=== PATIENT | male | born 1940 | race Caucasian/White ===

== ENCOUNTER 2018-02-24 15:15 | Inpatient (IN) | payer OTHER ==
[2018-02-24 15:51] LABS: PLATELET COUNT 230 10^3/uL (150-400)
--- NOTE | 2018-02-24 16:02 | CPEKG ---
Test Reason : OPEN Blood Pressure : / mmHG Vent. Rate : 144 BPM Atrial Rate : 131 BPM P-R Int : 126 ms QRS Dur : 129 ms QT Int : 343 ms P-R-T Axes : 055 -53 124 degrees QTc Int : 531 ms Wide-QRS tachycardia Confirmed by Tremaine Harry ([id number]) on 02/24/2018 4:02:23 PM Referred By: Confirmed By:Tremaine Harry
[2018-02-24] MEDS ORDERED: DILTIAZEM 25 MG/5 ML VIAL IVP ONE (16:10)
[2018-02-24] MEDS ORDERED: ASPIRIN 81 MG CHEWABLE TAB PO ONE (16:10)
--- NOTE | 2018-02-24 16:11 | EDPHY ---
H & P Stated Complaint: max says pt became diaphoretic, c/o feeling not right, then unresponsive Time Seen by Provider: 02/24/18 16:01 HPI/ROS: CHIEF COMPLAINT: Syncope, atrial fibrillation HISTORY OF PRESENT ILLNESS: The patient is a 77-year-old man who denies any type of cardiac history who comes to the emergency department via EMS after new onset atrial fibrillation and a syncopal event. He states that he walked up the stairs and felt short of breath and had to sit down which is unusual for him. He got a drink of water and walked back down the stairs. When he got down the stairs he had to sit down and felt short of breath. His friends noticed that he looked pale and was staring off into space. No convulsions. He did not bite his tongue. He was slightly incontinent of urine. His friends feel like this lasted for 10 min but think that they may be over estimating because they were scared. They called 911. His symptoms resolved spontaneously. He states that he might have had a slight twinge of pain and palpitations initially but does not remember for sure. He now is a heart rate of 140 and is in atrial fibrillation which he states is new. He is not anticoagulated. No headache. No recent fevers or infections. He has a history of left-sided carotid endarterectomy. Negative stress test 7 years ago. Severity: Moderate Modifying factors: Resolved REVIEW OF SYSTEMS: Constitutional: denies: chills, fever, recent illness, recent injury EENTM: denies: blurred vision, double vision, nose congestion Respiratory: denies: cough, shortness of breath Cardiac: See HPI Gastrointestinal/Abdominal: denies: abdominal pain, diarrhea, nausea, vomiting, blood streaked stools Genitourinary: denies: dysuria, frequency, hematuria, pain Musculoskeletal: denies: joint pain, muscle pain Skin: denies: lesions, rash, jaundice, bruising Neurological: denies: headache, numbness, paresthesia, tingling, dizziness, weakness Hematologic/Lymphatic: denies: blood clots, easy bleeding, easy bruising Immunologic/allergic: denies: HIV/AIDS, transplant 10 systems reviewed and negative except as noted EXAM: GENERAL: Well-appearing, well-nourished and in no acute distress. HEAD: Atraumatic, normocephalic. EYES: Pupils equal round and reactive to light, extraocular movements intact, sclera anicteric, conjunctiva are normal. ENT: TMs normal, nares patent, oropharynx clear without exudates. Moist mucous membranes. NECK: Normal range of motion, supple without lymphadenopathy or JVD. LUNGS: Breath sounds clear to auscultation bilaterally and equal. No wheezes rales or rhonchi. HEART: Tachycardic and irregular, no rubs ABDOMEN: Soft, nontender, normoactive bowel sounds. No guarding, no rebound. No masses appreciated. BACK: No CVA tenderness, no spinal tenderness, step-offs or deformities EXTREMITIES: Normal range of motion, no pitting or edema. No clubbing or cyanosis. NEUROLOGICAL: Cranial nerves II through XII grossly intact. Normal speech, normal gait. 5/5 strength, normal movement in all extremities, normal sensation , normal reflexes PSYCH: Normal mood, normal affect. SKIN: Warm, dry, normal turgor, no visible rashes or lesions. Source: Patient Exam Limitations: No limitations - Medical/Surgical History Hx Asthma: No Hx Chronic Respiratory Disease: No Hx Diabetes: No Hx Cardiac Disease: Yes Hx Renal Disease: No Hx Cirrhosis: No Hx Alcoholism: No Hx HIV/AIDS: No Hx Splenectomy or Spleen Trauma: No Other PMH: hyperlipidemia, hypertension, bph, bilat knee replace, tonsillectomy , bilat cataract surg - Family History Significant Family History: No pertinent family hx - Social History Smoking Status: Former smoker Alcohol Use: Sober Drug Use: None Constitutional: Initial Vital Signs Temperature (C) 36.7 C 02/24/18 15:23 Heart Rate 128 H 02/24/18 15:23 Respiratory Rate 28 H 02/24/18 15:23 Blood Pressure 130/83 H 02/24/18 15:23 O2 Sat (%) 96 02/24/18 15:23 O2 Delivery Mode Room Air Allergies/Adverse Reactions: Penicillins Allergy (Verified 02/24/18 17:44) itching and hand swelling Home Medications: Medication Instructions Recorded Aspirin [Aspirin 325 mg (*)] 325 mg PO HS 02/24/18 Cholecalciferol Vit D3 [Vitamin D3 1,000 units PO DAILY 02/24/18 (*)] Cyanocobalamin [Vitamin B12 (*)] 100 mcg PO DAILY@12 02/24/18 Isosorbide Mononitrate [Imdur 30 30 mg PO DAILY 02/24/18 mg (*)] Metoprolol Tartrate [Lopressor 25 25 mg PO BID 02/24/18 mg (*)] Simvastatin [Zocor] 40 mg PO HS 02/24/18 Tamsulosin HCl [Flomax 0.4 MG (*)] 0.4 mg PO HS 02/24/18 Telmisartan/Hydrochlorothiazid 1 each PO DAILY 02/24/18 [Micardis Hct 40-12.5 mg Tablet] Medical Decision Making - Diagnostics EKG Interpretation: An EKG obtained and was read and documented in trace view. Please see trace view for full reading and report. Atrial fibrillation, no acute ischemic changes Imaging Results: Imaging Impressions Head CT 02/24/18 16:02 Impression: Nothing acute identified. Results called to Dr. Tremaine Harry at 4:51 PM General information for patients regarding this examination can be found at [email or web address]. If you have questions or comments about this report, please contact me at (hospital) or [phone] (cell). Imaging: Discussed imaging studies w/ inbound call center representative Radiologist ED Course/Re-evaluation: 5:00 p.m. there has been delay and administering diltiazem. He is receiving now. He is able to ambulate. I discussed the case with Dr. Pulliam who will admit. Differential Diagnosis: Partial list of the Differential diagnosis considered include but were not limited to; syncope, seizure, new onset atrial fibrillation and although unlikely based on the history and physical exam, I also considered acute coronary disease, dissection, aneurysm, hemorrhage. - Data Points Laboratory Results: Laboratory Results 02/24/18 15:30 02/24/18 15:30 02/24/18 02/24/18 02/24/18 15:40 15:30 15:30 WBC RBC Hgb Hct MCV MCH MCHC RDW Plt Count MPV Neut % (Auto) Lymph % (Auto) [place] % (Auto) Eos % (Auto) Baso % (Auto) Nucleat RBC Rel Count Absolute Neuts (auto) Absolute Lymphs (auto) Absolute Monos (auto) Absolute Eos (auto) Absolute Basos (auto) Absolute Nucleated RBC Immature Gran % Immature Gran # PT 14.2 SEC SEC (12.0-15.0) INR 1.08 (0.83-1.16) APTT 29.7 SEC SEC (23.0-38.0) Sodium 133 mEq/L L mEq/L (135-145) Potassium 4.1 mEq/L mEq/L (3.3-5.0) Chloride 98 mEq/L mEq/L (97-110) Carbon Dioxide 24 mEq/l mEq/l (22-31) Anion Gap 11 mEq/L mEq/L (6-14) BUN 26 mg/dL H mg/dL (7-23) Creatinine 1.2 mg/dL mg/dL (0.7-1.3) Estimated GFR 58 Glucose 104 mg/dL H mg/dL (70-100) Calcium 9.4 mg/dL mg/dL (8.5-10.4) POC Troponin I 0.13 ng/mL H ng/mL (0.00-0.08) 02/24/18 15:30 WBC 5.70 10^3/uL 10^3/uL (3.80-9.50) RBC 4.22 10^6/uL L 10^6/uL (4.40-6.38) Hgb 12.6 g/dL L g/dL (13.7-17.5) Hct 37.1 % L % (40.0-51.0) MCV 87.9 fL fL (81.5-99.8) MCH 29.9 pg pg (27.9-34.1) MCHC 34.0 g/dL g/dL (32.4-36.7) RDW 13.3 % % (11.5-15.2) Plt Count 230 10^3/uL 10^3/uL (150-400) MPV 10.4 fL fL (8.7-11.7) Neut % (Auto) 77.9 % H % (39.3-74.2) Lymph % (Auto) 11.8 % L % (15.0-45.0) [facility] % (Auto) 9.5 % % (4.5-13.0) Eos % (Auto) 0.4 % L % (0.6-7.6) Baso % (Auto) 0.2 % L % (0.3-1.7) Nucleat RBC Rel Count 0.0 % % (0.0-0.2) Absolute Neuts (auto) 4.45 10^3/uL 10^3/uL (1.70-6.50) Absolute Lymphs (auto) 0.67 10^3/uL L 10^3/uL (1.00-3.00) Absolute Monos (auto) 0.54 10^3/uL 10^3/uL (0.30-0.80) Absolute Eos (auto) 0.02 10^3/uL L 10^3/uL (0.03-0.40) Absolute Basos (auto) 0.01 10^3/uL L 10^3/uL (0.02-0.10) Absolute Nucleated RBC 0.00 10^3/uL 10^3/uL (0-0.01) Immature Gran % 0.2 % % (0.0-1.1) Immature Gran # 0.01 10^3/uL 10^3/uL (0.00-0.10) PT INR APTT Sodium Potassium Chloride Carbon Dioxide Anion Gap BUN Creatinine Estimated GFR Glucose Calcium POC Troponin I Medications Given: Discontinued Medications Aspirin (Aspirin) 324 mg PO EDNOW ONE Stop: 02/24/18 16:11 Last Admin: 02/24/18 17:00 Dose: 324 mg Diltiazem HCl (Cardizem 25 Mg/5 Ml Vial) 10 mg IVP EDNOW ONE Stop: 02/24/18 16:11 Last Admin: 02/24/18 17:00 Dose: 10 mg Metoprolol Tartrate (Lopressor) 25 mg PO ONCE ONE Stop: 02/24/18 18:31 Last Admin: 02/24/18 19:18 Dose: 25 mg Point of Care Test Results: Chemistry 02/24/18 15:40 POC Troponin I 0.13 ng/mL H ng/mL (0.00-0.08) Departure - Departure Disposition: [facility] Inpatient Acute Clinical Impression: New onset atrial fibrillation Syncope Qualifiers: Syncope type: unspecified Qualified Code(s): R55 - Syncope and collapse Condition: Fair
[2018-02-24 16:23] LABS: INR 1.08 (0.83-1.16); PROTIME(PATIENT) 14.2 SEC (12.0-15.0)
[2018-02-24] MEDS ORDERED: ACETAMINOPHEN 325 MG TAB PO PRN (18:27)
[2018-02-24] MEDS ORDERED: NS 1,000 ML IV SCH (18:30)
[2018-02-24] MEDS ORDERED: METOPROLOL TARTRATE 25 MG TAB PO ONE (18:30)
--- NOTE | 2018-02-24 20:12 | PDGENHP ---
History and Physical - Chief Complaint Acute syncope - History of Present Illness Primary care provider: Dr. Matt Hines HPI: 77-year-old male presents with acute syncope characterized as complete unresponsiveness with associated urinary incontinence but no overt trauma or fall, experienced after he was visibly diaphoretic, experiencing shortness of breath with ambulation, and expressing some mild left-sided chest pain. The symptoms occurred in the context of the patient playing pool with friends at 1: 30 p.m.. He ambulated up stairs and then down stairs, then experiencing the aforementioned symptoms. The duration of his unresponsiveness was approximately 10 min, and it was witnessed by his friends and family. He did not require any CPR and his symptoms abated. His chest pain was very brief and he is not entirely sure whether he would described as pain or palpitations. In the emergency department he was notably in rapid AFib and was given 1 dose of IV diltiazem. Over the past several weeks, the patient has been experiencing a cough as well as exertional shortness of breath, which is alleviated with rest. His family has witnessed this and describes shortness of breath has significantly different than his baseline exertion. They have also witnessed the patient experience some dizziness with ambulation. The patient seems to minimize the symptoms. He reports he has otherwise been taking all of his home medications. History Information - Allergies/Home Medication List Allergies/Adverse Reactions: Penicillins Allergy (Verified 02/24/18 17:44) itching and hand swelling Home Medications: Aspirin [Aspirin 325 mg (*)] 325 mg PO HS 02/24/18 [Last Taken 02/23/18] Cholecalciferol Vit D3 [Vitamin D3 (*)] 1,000 units PO DAILY 02/24/18 [Last Taken Unknown] Cyanocobalamin [Vitamin B12 (*)] 100 mcg PO DAILY@12 02/24/18 [Last Taken ] Isosorbide Mononitrate [Imdur 30 mg (*)] 30 mg PO DAILY 02/24/18 [Last Taken ] Metoprolol Tartrate [Lopressor 25 mg (*)] 25 mg PO BID 02/24/18 [Last Taken 09:00] Simvastatin [Zocor] 40 mg PO HS 02/24/18 [Last Taken 02/23/18] Tamsulosin HCl [Flomax 0.4 MG (*)] 0.4 mg PO HS 02/24/18 [Last Taken 02/23/18] Telmisartan/Hydrochlorothiazid [Micardis Hct 40-12.5 mg Tablet] 1 each PO DAILY 02/24/18 [Last Taken 02/24/18] I have personally reviewed and updated: family history, medical history, social history, surgical history - Past Medical History Additional medical history: Chronic lower extremity edema. Known heart murmur. Peripheral neuropathy. Osteoarthritis with impaired balance at baseline. Carotid stenosis. Last cardiac stress test 7 years ago, last cardiac catheterization 12 years ago - Surgical History Additional surgical history: Left-sided CEA. Bilateral knee surgery - Family History Additional family history: Father with myocardial infarction at age 55 - Social History Smoking Status: Former smoker Alcohol Use: Sober (History of heavy drinking) Drug Use: None Additional social history: Patient is independent in his ADLs comma he currently resides with his daughter and her Review of Systems Review of Systems: ROS: 10pt was reviewed & negative except for what was stated in HPI & below Cardiac: Reports: chest pain, palpitations Respiratory: Reports: cough, shortness of breath Neurological: Reports: other (Syncope, dizziness) Physical Exam Physical Exam: Temp Pulse Resp BP Pulse Ox 36.3 C 146 H 16 121/94 H 96 02/24/18 18:26 02/24/18 19:18 02/24/18 18:26 02/24/18 18:26 02/24/18 18:26 Constitutional: no apparent distress, appears nourished, not in pain, No uncomfortable Eyes: PERRL, anicteric sclera, EOMI Ears, Nose, Mouth, Throat: moist mucous membranes, ears appear normal, no oral mucosal ulcers, hard of hearing Cardiovascular: irregularly irregular, JVD, tachycardia, edema (1+ bilateral lower extremities), No carotid bruit Respiratory: inspiratory crackles, No reduced air movement, No expiratory wheeze , No bronchial breath sounds, No respiratory distress Gastrointestinal: normoactive bowel sounds, soft, non-tender abdomen, other ( Mid abdominal hernia, nontender), No guarding, No distension Skin: warm, No rash Neurologic: AAOx3, sensation intact bilaterally, No weakness (Motor strength 5/ 5 bilateral lower extremities) Psychiatric: interacting appropriately, not anxious, poor memory, other (Mild delay and thought processing), No agitated Lab Data & Imaging Review 02/24/18 15:30 02/24/18 15:30 WBC 5.70 10^3/uL (3.80-9.50) 02/24/18 15:30 RBC 4.22 10^6/uL (4.40-6.38) L 02/24/18 15:30 Hgb 12.6 g/dL (13.7-17.5) L 02/24/18 15:30 Hct 37.1 % (40.0-51.0) L 02/24/18 15:30 MCV 87.9 fL (81.5-99.8) 02/24/18 15:30 MCH 29.9 pg (27.9-34.1) 02/24/18 15:30 MCHC 34.0 g/dL (32.4-36.7) 02/24/18 15:30 RDW 13.3 % (11.5-15.2) 02/24/18 15:30 Plt Count 230 10^3/uL (150-400) 02/24/18 15:30 MPV 10.4 fL (8.7-11.7) 02/24/18 15:30 Neut % (Auto) 77.9 % (39.3-74.2) H 02/24/18 15:30 Lymph % (Auto) 11.8 % (15.0-45.0) L 02/24/18 15:30 Burt % (Auto) 9.5 % (4.5-13.0) 02/24/18 15:30 Eos % (Auto) 0.4 % (0.6-7.6) L 02/24/18 15:30 Baso % (Auto) 0.2 % (0.3-1.7) L 02/24/18 15:30 Nucleat RBC Rel Count 0.0 % (0.0-0.2) 02/24/18 15:30 Absolute Neuts (auto) 4.45 10^3/uL (1.70-6.50) 02/24/18 15:30 Absolute Lymphs (auto) 0.67 10^3/uL (1.00-3.00) L 02/24/18 15:30 Absolute Monos (auto) 0.54 10^3/uL (0.30-0.80) 02/24/18 15:30 Absolute Eos (auto) 0.02 10^3/uL (0.03-0.40) L 02/24/18 15:30 Absolute Basos (auto) 0.01 10^3/uL (0.02-0.10) L 02/24/18 15:30 Absolute Nucleated RBC 0.00 10^3/uL (0-0.01) 02/24/18 15:30 Immature Gran % 0.2 % (0.0-1.1) 02/24/18 15:30 Immature Gran # 0.01 10^3/uL (0.00-0.10) 02/24/18 15:30 PT 14.2 SEC (12.0-15.0) 02/24/18 15:30 INR 1.08 (0.83-1.16) 02/24/18 15:30 APTT 29.7 SEC (23.0-38.0) 02/24/18 15:30 Sodium 133 mEq/L (135-145) L 02/24/18 15:30 Potassium 4.1 mEq/L (3.3-5.0) 02/24/18 15:30 Chloride 98 mEq/L (97-110) 02/24/18 15:30 Carbon Dioxide 24 mEq/l (22-31) 02/24/18 15:30 Anion Gap 11 mEq/L (6-14) 02/24/18 15:30 BUN 26 mg/dL (7-23) H 02/24/18 15:30 Creatinine 1.2 mg/dL (0.7-1.3) 02/24/18 15:30 Estimated GFR 58 02/24/18 15:30 Glucose 104 mg/dL (70-100) H 02/24/18 15:30 Calcium 9.4 mg/dL (8.5-10.4) 02/24/18 15:30 POC Troponin I 0.13 ng/mL (0.00-0.08) H 02/24/18 15:40 Visualized and Interpreted Chest x-ray results: Yes Chest X-Ray results: other (Bilateral interstitial infiltrates) Visualized and Interpreted EKG results: Yes EKG Interpretation: Positive for: other (Atrial fibrillation with ST depression in lateral leads) Assessment & Plan Assessment: 77-year-old male presenting with new onset atrial fibrillation with rapid ventricular response, acute demand ischemia and mild diastolic CHF exacerbation Plan: 1. Atrial fibrillation. Acute rapid ventricular response, new problem this provider, further workup indicated. New diagnosis for patient comma unclear whether this was precipitated by viral URI or valvular abnormality with history of heart murmur -get echocardiogram -check D-dimer to ensure that patient does not venous thromboembolism given his chronically edematous lower extremities without previous workup -discussed with Dr. Tremaine Harry in the emergency department, he has administered for 10 mg of IV diltiazem, the patient is chronically on low-dose metoprolol, I will increase this to 50 mg twice daily beginning tonight, with 1 dose of metoprolol orally this evening prior to that -will give Lovenox in preparation for likely DC cardioversion/MIN tomorrow -I have messaged Dr. Up to request a cardiology consultation -I suspect that the patient has developed mild CHF and demand ischemia secondary to uncontrolled atrial fibrillation over at least the last several days, possibly the last several weeks 2. Demand ischemia. Acute, unclear whether this was caused by strain from atrial fibrillation or whether the patient was experiencing acute cardiac event with some ST depression on his EKG -will repeat EKG once heart rate less than 100 -will cycle cardiac enzymes tonight and treat this as a non ST-elevation myocardial infarction, possibly type 1 if troponin level is rising -will continue isosorbide comma home medication -will check A1c, LDL, reviewed outside records including labs from 12/07/2017 demonstrating LDL of 63, continue current statin dosing -hold aspirin now that we are fully anticoagulated 3. Acute diastolic congestive heart failure exacerbation. Evidenced by infiltrates on chest x-ray, exertional shortness of breath, lower extremity edema -will attempt rate and rhythm control as above, may benefit from IV Lasix thereafter -holding patient's ARB/HCTZ as he may receive better benefit from initiating Lasix and increasing his beta-mark 4. Peripheral neuropathy. Continue home medications Diet. Cardiac, NPO in a.m. Prophylaxis. High risk patient, currently systemically anticoagulated Code. Full per patient, daughter is MD ABRAHAM Disposition. Anticipated discharge 02/25, pending stabilization of above. If patient develops a non ST-elevation myocardial infarction or his CHF worsens, he will need to be upgraded to inpatient admission status at that time.
[2018-02-24] MEDS ORDERED: METOPROLOL TARTRATE 25 MG TAB PO SCH (21:00)
[2018-02-24] MEDS: METOPROLOL TARTRATE 50 MG TAB PO SCH (21:26)
[2018-02-24] MEDS: TAMSULOSIN HCL 0.4 MG CAP PO SCH (21:26)
[2018-02-24] MEDS: ENOXAPARIN 120 MG/0.8 ML SYR SC SCH (21:27)
[2018-02-25 04:33] LABS: PLATELET COUNT 183 10^3/uL (150-400)
[2018-02-25] MEDS: METOPROLOL TARTRATE 50 MG TAB PO SCH ×2 (07:58→20:22)
--- NOTE | 2018-02-25 08:52 | ASMTCMCOM ---
CM Note CM Note Notes: Chart reviewed for discharge planning purposes. 77 year old male admitted via ED after witness episode of syncope. Known hx of cardiac murmur, carotid stenosis, peripheral neuropathy and knee surgery. He is to have a cardiac workup. Normally lives with his daughter and her . Independent with ADLS. CM to follow for needs. Plan: TBD Date Signed: 02/25/2018 08:52 AM Electronically Signed By:Cassidy Bailon RN
[2018-02-25] MEDS ORDERED: ISOSORBIDE MONONITRATE 30 MG TAB.SR PO SCH (09:00)
[2018-02-25] MEDS ORDERED: NS 1,000 ML IV ONE (09:05)
[2018-02-25] MEDS ORDERED: ATROPINE SULFATE 1 MG/10 ML SYR IVP ONE (09:05)
--- NOTE | 2018-02-25 09:30 | PDANEPAE ---
ANE History of Present Illness here for MIN/CV s/p syncope with AF ANE Past Medical History - Cardiovascular History Hx Hypertension: Yes Hx Arrhythmias: Yes Hx Chest Pain: No Hx Coronary Artery / Peripheral Vascular Disease: No Hx CHF / Valvular Disease: No Hx Palpitations: Yes - Pulmonary History Hx COPD: No Hx Asthma/Reactive Airway Disease: No Hx Recent Upper Respiratory Infection: No Hx Oxygen in Use at Home: No Hx Sleep Apnea: No - Endocrine History Hx Diabetes: No Hypothyroid: No Hyperthyroid: No - Renal History Hx Renal Disorders: No - Liver History Hx Hepatic Disorders: No ANE Review of Systems Review of systems is: negative Review of Systems: - Exercise capacity Exercise capacity: >=4 METS ANE Patient History - Allergies Allergies/Adverse Reactions: Penicillins Allergy (Verified 02/24/18 17:44) itching and hand swelling - Home Medications Home medications: home medication list seen and reviewed Home Medications: Aspirin [Aspirin 325 mg (*)] 325 mg PO HS 02/24/18 [Last Taken 02/23/18] Cholecalciferol Vit D3 [Vitamin D3 (*)] 1,000 units PO DAILY 02/24/18 [Last Taken Unknown] Cyanocobalamin [Vitamin B12 (*)] 100 mcg PO DAILY@12 02/24/18 [Last Taken ] Isosorbide Mononitrate [Imdur 30 mg (*)] 30 mg PO DAILY 02/24/18 [Last Taken ] Metoprolol Tartrate [Lopressor 25 mg (*)] 25 mg PO BID 02/24/18 [Last Taken 09:00] Simvastatin [Zocor] 40 mg PO HS 02/24/18 [Last Taken 02/23/18] Tamsulosin HCl [Flomax 0.4 MG (*)] 0.4 mg PO HS 02/24/18 [Last Taken 02/23/18] Telmisartan/Hydrochlorothiazid [Micardis Hct 40-12.5 mg Tablet] 1 each PO DAILY 02/24/18 [Last Taken 02/24/18] - NPO status NPO Status: no food or drink >8 hours - Smoking Hx Smoking Status: Former smoker - Alcohol Use Alcohol Use: Sober (History of heavy drinking) ANE Labs/Vital Signs - Labs Result Diagrams: 02/25/18 04:14 02/25/18 04:14 - Vital Signs Vital Signs: reviewed preoperatively; see RN documention for details Blood Pressure: 107/85 Heart Rate: 106 Respiratory Rate: 18 O2 Sat (%): 91 Height: 182.88 cm Weight: 111.1 kg ANE Physical Exam - Airway Neck exam: FROM Mallampati Score: Class 1 - Pulmonary Pulmonary: no respiratory distress - Cardiovascular Cardiovascular: regular rate and rhythym - ASA Status ASA Status: III ANE Anesthesia Plan Anesthesia Plan: GA with mask
[2018-02-25] MEDS ORDERED: PROPOFOL 200 MG/20 ML VIAL ONE (09:35)
[2018-02-25] MEDS: FUROSEMIDE 40 MG/4 ML VIAL IVP SCH ×2 (09:44→15:55)
[2018-02-25] MEDS: ENOXAPARIN 120 MG/0.8 ML SYR SC SCH (09:48)
[2018-02-25 10:15] LABS: INR 1.11 (0.83-1.16); PROTIME(PATIENT) 14.5 SEC (12.0-15.0)
--- NOTE | 2018-02-25 10:28 | PDTEE1 ---
MIN Cardioversion Procedure Procedure: electrical cardioversion, transesophageal echo Indications: atrial fibrillation Consent: signed and in chart Anticoagulation: lovenox Procedural Details: Sedation provided by Dr. Schwartz. Pads were placed in anterior-posterior position. MIN probe was advanced and standard images obtained. There is no evidence of left atrial or left atrial appendage thrombus. Synchronized cardioversion attempt #1: [id number] Results: normal sinus rhythm Conclusions: successful MIN cardioversion Patient Problems: Problems Problem Status Onset New onset atrial fibrillation Acute Syncope Acute
--- NOTE | 2018-02-25 10:32 | POSTANESTH ---
Post Anesthetic Evaluation Cardiovascular Status: Normal, Stable Respiratory Status: Normal, Stable Level of Consciousness/Mental Status: Can Participate in Eval Pain Control: Adequate, Prn Tx Ordered Nausea/Vomiting Control: Adequate, Prn Tx Ordered Complications Possibly Related to Anesthesia: None Noted
--- NOTE | 2018-02-25 10:53 | GCON ---
CARDIOLOGY CONSULT DATE OF CONSULTATION: 02/25/2018 PRIMARY CARE: Dr. Matt Hines. CHIEF COMPLAINT: Atrial fibrillation, heart failure. HISTORY OF PRESENT ILLNESS: We were asked by Dr. Pulliam to visit with Ed. The patient is a pleasant 77-year-old male who has been told in the past that he has some "heart valve problems." He does hav e a history of vascular disease, status post left CEA. He had a coronary angiogram 12 years ago in [facility] and was told he had some plaquing, but no intervention was needed. Over the past few days, he has been progressively short of breath. Yesterday, he was at his daughter 's home playing pool with some friends. He went upstairs to get something to drink. He had to stop and sit on a bench because he was so short of breath. He came back downstairs, and his friends told him he looked poorly. He apparently sat down and was unresponsive for a few minutes. He had urinary incontinence. No other seizure activity. He did not fall. He did not require CPR. He came to and was brought to the hospital. In the emergency department, he was found to be in atrial fibrillation with rapid ventricular respons e. Clinically, he also appeared to be in heart failure. He was given IV diltiazem and admitted for further observation. Troponins have been borderline elevated. Upon my evaluation this morning, he reports that he is not short of breath at rest. He woke up and h ad some aching in his chest, but he is not having any chest pain now. He does have a long history of chronic intermittent bilateral lower extremity edema. He has had 2 falls over the past year and use s a walker. He has not had major bleeding problems. He does not notice palpitations, per se. REVIEW OF SYSTEMS: A 10-point review of systems performed and is negative, except that which is outl ined in the History of Present Illness. ALLERGIES: Penicillin. PAST MEDICAL HISTORY: 1. New diagnosis of atrial fibrillation. 2. Vascular disease, status post left CEA. 3. Hypertension. 4. Dyslipidemia. 5. Anemia. 6. Osteoarthritis, status post bilateral total knee replacements. 7. Peripheral neuropathy. 8. BPH. 9. Status post cataract surgery. OUTPATIENT MEDICATIONS: Simvastatin 40 mg daily, aspirin 325 mg daily, vitamin D3, vitamin B12, Imdu r 30 mg daily, metoprolol tartrate 25 mg b.i.d., Flomax 0.4 mg nightly, and telmisartan/hydrochloroth iazide 40/12.5 mg daily. SOCIAL HISTORY: The patient is a former tobacco smoker. He does not drink alcohol. He lives with h is granddaughter and babsjujy-rd-cgs. FAMILY HISTORY: Not applicable to the current case. PHYSICAL EXAM: VITAL SIGNS: Blood pressure 107/85, heart rate 106, but it has been as high as the 1 30s. Oxygen saturation 91% on room air, respiratory rate 18, he is afebrile. GENERAL: Well-appeari ng older male, in no acute distress. HEENT: He is edentulous. Normocephalic, atraumatic. Mucous m embranes are moist. Sclerae are nonicteric. CARDIOVASCULAR: JVP is 12-14 cm of water, with positiv e hepatojugular reflux. Carotids equal and 2+ without bruit. Irregularly irregular rhythm. 2/6 leo y peaking systolic ejection murmur at the base. 2/6 holosystolic murmur at the apex. LUNGS: Bibasil ar rales without wheezes or rhonchi. ABDOMEN: Soft, obese, nontender, nondistended, without obvious bruits, masses, or hepatosplenomegaly. EXTREMITIES: Warm and well perfused. Trace to 1+ pitting e mychal to the midshin bilaterally. Intact dorsalis pedis pulses bilaterally. NEURO: Alert and orient ed x3 without gross focal neurological deficits. Appropriate mood and affect. LABORATORY DATA: White count 3.78, hematocrit 34.4, and platelets are 183. D-dimer is 0.8. INR is normal. Sodium 135, potassium 2.9, chloride 101, bicarb 29, BUN 22, creatinine 1, glucose 100. Hemo globin A1c is pending. LFTs are normal except for a total protein of 5.8 and albumin of 3.2. His LD L cholesterol is 60. Troponin peak was 0.23, currently 1.89. TSH is normal. Vitamin B12 was normal in December of this year. Serial EKGs reviewed by me show atrial fibrillation with left bundle branch block, periods of rapid v entricular response. Chest x-ray reviewed by me shows mild heart failure. Head CT shows no acute process. ASSESSMENT AND PLAN: A 77-year-old male with new diagnosis of atrial fibrillation, heart failure, va lvular heart disease. He is volume overloaded, but hemodynamically stable. 1. Atrial fibrillation: Despite up titration of metoprolol, he has rapid ventricular rates with hea rt failure. I do think he would be a candidate for transesophageal echocardiogram-guided cardioversi on. Risks, benefits of this procedure were discussed with the patient and his daughter who is at bed side. They agree to proceed. This will be arranged for later this morning. He has received Lovenox last night and this morning. He will be started on Eliquis this evening. I explained the risks ass ociated with anticoagulation. I think he would be a candidate for at least short-term anticoagulatio n, and then over the mcc, we can assess whether he will be a candidate for Watchman implant, gi raymond his history of falls. 2. Heart failure: Evaluate ejection fraction on transesophageal echocardiogram. This was likely tr iggered by atrial fibrillation in the setting of underlying valvular heart disease, presumably aortic stenosis and mitral regurgitation. Start IV Lasix. Restore sinus rhythm. May require coronary verona luation in the future. 3. Valvular heart disease: On exam, it sounds like he has aortic stenosis and mitral regurgitation. Evaluate further with transesophageal echocardiogram. Mitral regurgitation may improve somewhat wi th islam of sinus rhythm, but we will have to follow this serially. 4. Borderline troponin: This is likely related to heart failure and rapid ventricular rate in atria l fibrillation. However, he will require further coronary risk stratification. I do not think he is having an acute coronary syndrome, so we could consider nuclear stress test as an outpatient. 5. Hypertension: Currently well controlled. I would discontinue Imdur, given its lack of benefit i n this situation. Agree with up-titrated isosorbide mononitrate. 6. Dyslipidemia: LDL is excellent. Continue simvastatin. 7. Peripheral vascular disease: History of left cerebrovascular accident. We could reevaluate hannah tid Dopplers as an outpatient. Thank you for allowing us to participate in his care. We will follow with you. /[id number]/MODL
--- NOTE | 2018-02-25 11:49 | ECHO ---
[email or web address] [address] [address] Main: [phone] Fax: Transesophageal Echocardiography Name: SARAH MCCLOUD MR#: [id number] Study Date: 02/25/2018 Study Time: 09:35 AM Date of : 1940 Age: 77 year(s) Height: 182.9 cm (72 in.) Weight: 110.68 kg (244 lb.) BSA: 2.32 m2 Gender: Male Examination: MIN Indication: Atrial fibrillation/MR/pre DCCV Image Quality: Contrast: Requested by: Cathy Ramirez Heart Rate: Rhythm: BP: / Procedure Staff Technical Support Engineer: Myriam Ramírez NATALIA Reading Physician: Cathy Ramirez MD Requesting Provider: Harsh Pulliam MIN Exam Details Conclusions: The ejection fraction is estimated to be 40-45 %. An agitated saline study was performed and was negative for intracardiac shunting. No thrombus in left appendage. Chiari's network discernible in right atrium. Moderate to severe mitral regurgitation. Mild mitral valve stenosis is present. MV mean PG is 4mmHG. Moderate mitral annular calcification. Severe aortic valve calcification is present. Moderate calcific aortic valve stenosis. Mild tricuspid regurgitation is present. RVSP is 49mmHG.. Measurements: Chambers Valvular Assessment AV/MV Valvular Assessment TV/PV Normal Normal Normal Name Value Range Name Value Range Name Value Range LVOTd 2.3 cm 2.3 cm mm AV Vmax: 3.02 m/s (1 m/s-1.7 TR Vmax: 3.31 mm/s ( - ) EF Range: 40-45 % m/s) TR PGmax: 44 mmHg ( - ) AV meanP mmHg ( - ) syst. PAP: 49 mmHg ( - ) IFTIKHAR (VTI): 1.2 cm ( - ) MV meanP mmHg ( - ) MVA (Vmax): 3.1 m/s ( - ) Additional Measurements: Patient: SARAH MCCLOUD Study Date: 02/25/2018 Page 1 of 2 09:35 AM Valvular Assessment AV/MV Valvular Assessment TV/PV Name Value Name Value MV VTI: 31.20 cm CVP (est.): 5 mmHg Findings: Left Ventricle: The ejection fraction is estimated to be 40-45 %. Apical and septal hypokinesis. Left Atrium: An agitated saline study was performed and was negative for intracardiac shunting. Left Atrial Appendage: No thrombus in left appendage. Right Atrium: Chiari's network discernible in right atrium. Mitral Valve: Moderate to severe mitral regurgitation. Mild mitral valve stenosis is present. MV mean PG is 4mmHG. Moderate mitral annular calcification. Aortic Valve: Severe aortic valve calcification is present. The aortic valve is tri-leaflet. Trivial aortic valve regurgitation. Moderate calcific aortic valve stenosis. Tricuspid Valve: Mild tricuspid regurgitation is present. The pulmonary artery pressure is moderately increased. RVSP is 49mmHG.. Pulmonic Valve: The pulmonic valve is normal in appearance. There is no pulmonic regurgitation seen. l1n (No Signature Object) Patient: SARAH MCCLOUD Study Date: 02/25/2018 Page 2 of 2 09:35 AM [id number]
[2018-02-25] MEDS: CYANO/VITAMIN B12 100 MCG TAB PO SCH (13:17)
[2018-02-25] MEDS: ATORVASTATIN CALCIUM 20 MG TAB PO SCH (13:17)
[2018-02-25] MEDS: CHOLECALCIFEROL VIT D3 1,000 UNITS TAB PO SCH (13:17)
--- NOTE | 2018-02-25 16:05 | HOSPPROG ---
Hospitalist Progress Note Assessment/Plan: * Afib s/p cardioversion -metoprolol increased -start Eliquis -consider Watchman given h/o falls * Acute systolic CHF - EF 40% -IV lasix * Demand ischemia -suspect troponin bump due to rapid rates -outpatient stress test * HTN -blood pressure running low -holding Micardis HCTZ -DC Imdur * Moderate / severe MR * PVD s/p CEA -ASA/statin Subjective: Feels great post cardioversion Objective: Vital Signs Temp Pulse Resp BP Pulse Ox 36.4 C 73 16 98/57 L 94 02/25/18 15:34 02/25/18 15:34 02/25/18 15:34 02/25/18 15:34 02/25/18 15:34 Laboratory Results 02/25/18 04:14 02/25/18 09:45 02/24/18 02/25/18 02/26/18 05:59 05:59 05:59 Intake Total 330 Output Total 300 200 Balance 30 -200 PT 14.5 SEC (12.0-15.0) 02/25/18 09:45 INR 1.11 (0.83-1.16) 02/25/18 09:45 MIN reviewed - EF 40%, mod EKG viewed, post cardioversion - NSR, mild ant/lat ST elevations - Physical Exam Constitutional: no apparent distress, appears nourished, not in pain Cardiovascular: regular rate and rhythym, no murmur, rub, or gallop Respiratory: no respiratory distress, no rales or rhonchi, clear to auscultation Gastrointestinal: normoactive bowel sounds, soft, non-tender abdomen, no palpable masses Skin: no rashes or abrasions, no fluctuance, no induration Neurologic: AAOx3, sensation intact bilaterally Psychiatric: interacting appropriately, not anxious, not encephalopathic, thought process linear ICD10 Worksheet Patient Problems: Problems Problem Status Onset New onset atrial fibrillation Acute Syncope Acute
[2018-02-25] MEDS: TAMSULOSIN HCL 0.4 MG CAP PO SCH (20:21)
[2018-02-25] MEDS: APIXABAN 5 MG TAB PO SCH (20:22)
[2018-02-26 04:01] VITALS: BP 116/69
[2018-02-26 04:19] LABS: PLATELET COUNT 194 10^3/uL (150-400)
[2018-02-26] MEDS ORDERED: ASPIRIN EC 81 MG TAB PO SCH (09:00)
[2018-02-26] MEDS: APIXABAN 5 MG TAB PO SCH (09:17)
[2018-02-26] MEDS: CHOLECALCIFEROL VIT D3 1,000 UNITS TAB PO SCH (09:17)
[2018-02-26] MEDS: ATORVASTATIN CALCIUM 20 MG TAB PO SCH (09:17)
[2018-02-26] MEDS: METOPROLOL TARTRATE 50 MG TAB PO SCH (09:26)
[2018-02-26] MEDS: FUROSEMIDE 40 MG/4 ML VIAL IVP SCH (09:27)
[2018-02-26] MEDS ORDERED: METOPROLOL TARTRATE 25 MG TAB PO SCH (09:30)
[2018-02-26] MEDS ORDERED: METOPROLOL SUCCINATE XR 25 MG TAB PO SCH (09:30)
--- NOTE | 2018-02-26 09:37 | PDCARPN ---
Cardiology Progress Note Assessment/Plan: Assessment/plan: 77-year-old male with newly diagnosed atrial fibrillation, valvular heart disease, acute systolic heart failure, history of carotid disease. He was admitted on with progressive dyspnea, an episode of presyncope and possibly syncope found to be in atrial fibrillation. He underwent MIN guided cardioversion on 02/25. He has diuresed well with IV Lasix. 1. Atrial fibrillation: Now in sinus rhythm. Reduce metoprolol as he has been intermittently bradycardic. Change to metoprolol succinate given his cardiomyopathy. He has been started on Eliquis for CHADS2 Vasc score of at least 4. He will require Eliquis for at least 1 month. May we consider referral to structural Heart for consideration of Watchman given his history of falls. TSH normal. 2. Acute systolic heart failure: Ejection fraction on MIN was 40% with apical and septal hypokinesis. This may be combination of pre-existing coronary disease and AFib with rapid ventricular response. He is now euvolemic after 2 doses of IV Lasix. Give additional dose today and discharged on low-dose oral Lasix. Will further risk stratify with nuclear stress test as outpatient. Continue Toprol. Add DOMENICA-inhibitor as an outpatient. 3. Valvular heart disease: Moderate aortic stenosis and moderate to severe mitral regurgitation. This will need to be followed closely with serial echocardiogram. 4. Hypertension: Currently well controlled. 5. Pulmonary hypertension: May improve with diuresis. Re-evaluate with next echo. 6. Borderline troponin: Likely related to AFib in rapid ventricular response. Further risk stratification as per 2. 7. Carotid disease: History of left CEA. Will require surveillance carotid ultrasound. Continue statin. He is also on aspirin. 8. Hyperlipidemia: LDL 60. Continue statin. 9. Anemia: No active bleeding. This will need to be followed as outpatient. He appears stable for discharge from a cardiac standpoint. Follow up with Lexiscan nuclear stress test at [facility] and then clinical visit. 02/26/18 09:42 Subjective: He feels much better. He did have some chest pressure 1 woken up in the night for vital signs. No chest pressure or dyspnea with walking today. He denies palpitations or presyncope. Reviewed/Discussed With: family Objective: Vital Signs (8 Hrs) Temp Pulse Resp BP Pulse Ox 02/26/18 03:59 36.5 C 72 12 116/69 91 L Intake/Output (24 Hrs) 02/25/18 02/26/18 02/27/18 05:59 05:59 05:59 Intake Total 330 350 Output Total 300 1850 Balance 30 -1500 Intake: Oral (ml) 300 350 IV Infused (ml) 30 Output: Urine (ml) 300 1850 Urinal 300 1850 Other: Weight 111.1 kg 111.1 kg Output Comment Toilet unable to void into urinal Number of Voids Toilet 2 4 Urinal 3 No acute distress. JVP less than 10. Regular rate and rhythm with 2/6 early peaking systolic ejection murmur at the base. 2/6 holosystolic murmur at the apex. Lungs clear bilaterally wheeze rhonchi or rales no lower extremity edema Result Diagrams: 02/26/18 03:34 02/25/18 09:45 Cardiac Labs: Cardiac Lab Results (72 Hrs) 02/25/18 02/24/18 04:14 20:07 Troponin I 0.189 H 0.230 H EKG: Reviewed tracing post cardioversion: Sinus rhythm with PAC. IVCD. Lateral ST depression. Telemetry: NSR, SB, occ PACs. ICD10 Worksheet Patient Problems: Problems Problem Status Onset New onset atrial fibrillation Acute Syncope Acute
--- NOTE | 2018-02-26 09:52 | PDMN ---
Medical Necessity Medical necessity: MCG: M190 heart failure: pt present with increasing SOB, in ED found to be in afib, heart failure- EKG show afib, LBBB, periods of RVR, PT changed to INPT 02/15 underwent successful MIN will remain in house for further diuresis, monitoring,
--- NOTE | 2018-02-26 12:27 | ASDISCHSUM ---
Discharge Information Plan Status:Home with No Needs Medically Cleared to Leave:02/26/2018 Discharge Date:02/26/2018 CM D/C Disposition:Home, Routine, Self-Care ADT D/C Disposition:Home, Routine, Self-Care Projected Discharge Date:02/26/2018 Transportation at D/C: Discharge Delay Reason: Follow-Up Date:02/26/2018 Discharge Slot: Final Diagnosis: Placement Information Patient Contact Information Contact Name:DREW Relationship:Daughter Address: Work Phone: City: [facility] Phone: State/Zip Code: Email: Financial Information Financial Class:Medicare Advantage Plans Primary Plan Desc:[facility] [employer] Primary Plan Number:[id number] Secondary Plan Desc: Secondary Plan Number: Assessment Information [facility] CM Progress Note CM Note CM Note Notes: Chart reviewed for discharge planning purposes. 77 year old male admitted via ED after witness episode of syncope. Known hx of cardiac murmur, carotid stenosis, peripheral neuropathy and knee surgery. He is to have a cardiac workup. Normally lives with his daughter and her . Independent with ADLS. CM to follow for needs. Plan: TBD Date Signed: 02/25/2018 08:52 AM Electronically Signed By:Cassidy Bailon RN Intervention Information
--- NOTE | 2018-02-26 12:27 | ASMTLACE ---
LACE Length of stay for Answers: Less than 1 day current admission Comorbidities - select Answers: Other Notes: carotid stenosis, heart all that apply murmur, peripheral neuropathy # of Emergency department Answers: 1-2 visits in the last 6 months Score: 2 Date Signed: 02/26/2018 12:27 PM Electronically Signed By:Cassidy Bailon RN
--- NOTE | 2018-02-26 12:30 | ASMTCMCOM ---
CM Note CM Note Notes: Patient medically stable and has follow up arranged. No needs at present he lives with his family. CM available should needs arise. Plan: Dc to home with family support and f/u with cardiology. Date Signed: 02/26/2018 12:29 PM Electronically Signed By:Cassidy Bailon RN
[2018-02-26] MEDS: CYANO/VITAMIN B12 100 MCG TAB PO SCH (13:18)
--- NOTE | 2018-02-26 17:23 | GDS ---
DISCHARGE DIAGNOSES: 1. Rapid atrial fibrillation, status post cardioversion. 2. Acute systolic congestive heart failure with an ejection fraction of 40%. 3. Demand ischemia due to rapid rates. 4. Hypertension. 5. Moderate aortic stenosis and severe mitral regurgitation. 6. Peripheral vascular disease, status post previous carotid endarterectomy. HISTORY: The patient is a 77-year-old male, who presented with a near syncopal event and was found t o be in rapid AFib. Cardiology was consulted, and he underwent cardioversion with return to normal s inus rhythm. He is feeling much better. He will discharge on metoprolol and Eliquis. He was volume overloaded and diuresed with IV Lasix. Blood pressures were a little on the soft side, however, so we are discontinuing his previous medication regimen of Micardis, hydrochlorothiazide, and Imdur, and instead he will discharge on metoprolol, Lasix, and Eliquis, with close outpatient followup with Dr. Ramirez where she will likely reinstitute DOMENICA inhibition at that time. He also requires outpatient str ess testing for further evaluation of the demand ischemia observed during this hospitalization. DISCHARGE MEDICATIONS: Please see computerized record for full detailed list of medications. 1. Eliquis 5 mg p.o. twice daily. 2. Lasix 20 mg p.o. daily. 3. Metoprolol-XL 25 mg p.o. daily. 4. Aspirin reduced to 81 mg p.o. daily. Discontinued medications: 1. Micardis/HCT 40/12.5. 2. Metoprolol 25 mg p.o. twice daily. 3. Imdur 30 mg p.o. daily. 4. Aspirin 325 mg p.o. daily. ADDITIONAL DISCHARGE INSTRUCTIONS: Follow up with Cathy Ramirez of [facility], with a [employer] nucle ar stress test to be performed prior to that appointment. TIME SPENT ON DISCHARGE: Greater than 30 minutes' time was spent arranging this discharge. The jb ent was seen and examined by me on the day of discharge. /[id number]/MODL
[2018-02-27] MEDS ORDERED: FUROSEMIDE 20 MG TAB PO SCH (09:00)
--- NOTE | 2018-02-27 10:41 | CPEKG ---
Test Reason : OPEN Blood Pressure : / mmHG Vent. Rate : 096 BPM Atrial Rate : 096 BPM P-R Int : 023 ms QRS Dur : 132 ms QT Int : 382 ms P-R-T Axes : 010 -42 132 degrees QTc Int : 483 ms Atrial fibrillation Nonspecific IVCD with LAD LVH with secondary repolarization abnormality Anterior Q waves, possibly due to LVH Confirmed by Harsh Garcia ([id number]) on 02/27/2018 10:41:00 AM Referred By: Confirmed By:Harsh Garcia
--- NOTE | 2018-02-27 10:42 | CPEKG ---
Test Reason : OPEN Blood Pressure : / mmHG Vent. Rate : 081 BPM Atrial Rate : 000 BPM P-R Int : 058 ms QRS Dur : 134 ms QT Int : 389 ms P-R-T Axes : 079 -45 135 degrees QTc Int : 452 ms Atrial fibrillation Nonspecific IVCD with LAD Anteroseptal infarct, old Repol abnrm, severe global ischemia (LM/MVD) Confirmed by Harsh Garcia ([id number]) on 02/27/2018 10:41:23 AM Referred By: Confirmed By:Harsh Garcia
--- NOTE | 2018-02-27 10:42 | CPEKG ---
Test Reason : OPEN Blood Pressure : / mmHG Vent. Rate : 102 BPM Atrial Rate : 138 BPM P-R Int : 032 ms QRS Dur : 130 ms QT Int : 404 ms P-R-T Axes : 000 -49 127 degrees QTc Int : 527 ms Atrial fibrillation Incomplete left bundle branch block Confirmed by Harsh Garcia ([id number]) on 02/27/2018 10:42:14 AM Referred By: Confirmed By:Harsh Garcia
--- NOTE | 2018-02-27 10:46 | CPEKG ---
Test Reason : OPEN Blood Pressure : / mmHG Vent. Rate : 124 BPM Atrial Rate : 160 BPM P-R Int : 066 ms QRS Dur : 130 ms QT Int : 354 ms P-R-T Axes : 000 -36 137 degrees QTc Int : 509 ms Atrial fibrillation incompleted LBBB Abnormal T, consider ischemia, lateral leads Confirmed by Harsh Garcia ([id number]) on 02/27/2018 10:45:49 AM Referred By: Confirmed By:Harsh Garcia
--- NOTE | 2018-02-27 10:48 | CPEKG ---
Test Reason : OPEN Blood Pressure : / mmHG Vent. Rate : 070 BPM Atrial Rate : 070 BPM P-R Int : 219 ms QRS Dur : 136 ms QT Int : 431 ms P-R-T Axes : 069 -41 115 degrees QTc Int : 466 ms Sinus rhythm Atrial premature complexes Borderline prolonged FL interval Probable left atrial enlargement Nonspecific IVCD with LAD Abnormal T, consider ischemia, lateral leads Minimal ST elevation, anterior leads Sinus rhythm has replaced atrial fibrillation as noted on prior Confirmed by Harsh Garcia ([id number]) on 02/27/2018 10:47:53 AM Referred By: Confirmed By:Harsh Garcia
== END 2018-02-26 13:35 | disposition home or self-care (01) | DRG 308 ==
LOC: EDUNIT# → F2W 18:10 → OBSVTOIN 02-25 12:54
PROVIDERS: ADMIT Internal Medicine; ATTEND Internal Medicine
DX: I48.91 Unspecified atrial fibrillation (principal); I11.0 Hypertensive heart disease with heart failure; I50.21 Acute systolic (congestive) heart failure; I24.8 Other forms of acute ischemic heart disease; E78.5 Hyperlipidemia, unspecified; I08.0 Rheumatic disorders of both mitral and aortic valves; N40.0 Benign prostatic hyperplasia without lower urinary tract symptoms; I73.9 Peripheral vascular disease, unspecified; D64.9 Anemia, unspecified; Z87.891 Personal history of nicotine dependence; Z96.653 Presence of artificial knee joint, bilateral
CPT/HCPCS: 84484-PO; 92523-GN; 96374; 97116-GP; 97161-GP; 97166-GO; G0378; G8978-GP-CJ; G8979-GP-CI; G8987-GO-CI; G8988-GO-CI; G8989-GO-CI; G9168-GN-CH; G9169-GN-CH; G9170-GN-CH; J1650; J1940; J2704

== ENCOUNTER → 2018-04-06 | Day surgery (SDC) | payer OTHER ==
[~2018-04-06] MED LIST: ASPIRIN EC 325 MG TAB PO ONE; ATROPINE SULFATE 1 MG/10 ML SYR IVP PRN; DIAZEPAM 5 MG TAB ONE; DIAZEPAM 5 MG TAB PO ONE; FAMOTIDINE 20 MG TAB ONE; FAMOTIDINE 20 MG TAB PO ONE; HEPARIN 10,000 UNIT/10 ML MDV (1,000 UNIT/ML) ONE; HYDROCODONE/APAP 5/325 TAB PO PRN; IOPAMIDOL (ISOVUE-370) 150 ML BTL IV ONE; LIDOCAINE 1% 300 MG/30 ML SDV ONE; MIDAZOLAM 2 MG/2 ML VIAL ONE; NITROGLYCERIN 0.4 MG BTL SL PRN; NS 1,000 ML IV ONE; ONDANSETRON 4 MG/2 ML VIAL IVP PRN; OXYCODONE/APAP 5/325 TAB PO PRN; VERAPAMIL 5 MG/2 ML VIAL ONE; diphenhydrAMINE 25 MG CAP PO ONE; fentaNYL 100 MCG/2 ML INJ ONE
[2018-04-06 09:17] LABS: PLATELET COUNT 198 10^3/uL (150-400)
[2018-04-06 09:25] LABS: INR 1.06 (0.83-1.16)
--- NOTE | 2018-04-06 10:02 | PDPROPOC ---
Sedation Plan of Care Sedation Plan of Care: vital signs stable, mental status noted, patient educated of risks, benefits, alternatives, patient can tolerate sedation ASA Classification: ASA 2 Planned drugs: fentanyl, midazolam Mallampati Score: Class 2 Mallampati Reference Image: Patient passed 3-3-2 rule?: Yes
--- NOTE | 2018-04-06 10:02 | PDHPUP ---
History & Physical Update H&P update statement: This history and physical update is based on an assessment of the patient which was completed after admission or registration (within 24 hours), but prior to the surgery/procedure. H&P update: H&P reviewed & patient examined, no change in patient's condition since H&P completed
--- NOTE | 2018-04-06 12:17 | PDDXCAT ---
Diagnostic Cath Note - . Date: 04/06/18 Customer Account Administrator: James High-risk criteria on non-invasive testing: stress-induced large perfusion defect (particularly if anterior) - Procedure Access: right groin Procedure: left heart catheterization, coronary angiography, left ventriculogram - Materials Left Heart Cath size: 6F Left Heart Cath materials: standard multipack (JL4, JR4, pigtail) - Findings-Left Heart Catheterization LM: There is 50% stenosis. LAD: 50% proximal LAD disease. There is a moderate-sized 1st diagonal. 30% diffuse disease throughout the remainder of the LAD. LCX: Ostial left circumflex disease, 70%. Approximately 80-90% stenosis at a trifurcation obtuse marginal. The left circumflex is codominant. RCA: Codominant vessel. 60% midvessel stenosis. EDP: 27 mm of mercury LVEF: 65% Wall motion: Mild inferior hypokinesis - Findings-Right Heart Catheterization AO: Aortic pressure is 113/56. LV pressure 149/9. There is a 36 mm peak to peak gradient upon pullback of the catheter from the left ventricle to the aorta. Complications: None Estimated blood loss: <50ml Closure method: Angioseal Assessment: 1. 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 2. Moderate aortic stenosis. 3. Previously documented moderate to severe mitral regurgitation and mild mitral stenosis. Plan: Cardiac surgery consult as an outpatient on TuesdayApril 10. The patient is currently in stable condition so urgent cardiac surgery is not necessary at this time. Repeat surface echocardiogram to reassess degree of valvular disease. He will likely need multivessel bypass, AVR and MVR. Carotid ultrasound pending. Results discussed in detail with the patient and his family. Dr. Lantigua aware of patient. Patient Problems: Problems Problem Status Onset New onset atrial fibrillation Acute Syncope Acute
--- NOTE | 2018-04-06 12:24 | CPEKG ---
Test Reason : OPEN Blood Pressure : / mmHG Vent. Rate : 084 BPM Atrial Rate : 084 BPM P-R Int : 194 ms QRS Dur : 133 ms QT Int : 432 ms P-R-T Axes : 085 -49 114 degrees QTc Int : 511 ms Sinus rhythm Nonspecific IVCD with LAD Probable anterolateral infarct, old Abnormal T, consider ischemia, lateral leads No significant change from February 25, 2018 Confirmed by Adria Gaffney ([id number]) on 04/06/2018 12:23:56 PM Referred By: Confirmed By:Adria Gaffney
--- NOTE | 2018-04-06 14:41 | ECHO ---
[email or web address] [address] [address] Main: [phone] Fax: Transthoracic Echocardiogram Name: SARAH MCCLOUD MR#: [id number] Study Date: 04/06/2018 Study Time: 12:06 PM Date of : 1940 Age: 77 year(s) Height: 182.9 cm (72 in.) Weight: 107.05 kg (236 lb.) BSA: 2.29 m2 Gender: Male Examination: Echo Indication: pre op Image Quality: Technically Difficult Contrast: Requested by: Cathy Ramirez BP: 106 mmHg/60 mmHg Heart Rate: Rhythm: Indication: pre op Procedure Staff Assistant General Manager: Manuela Mcintyre RDCS Reading Physician: Cathy Ramirez MD Requesting Provider: Conclusions: Normal size left ventricle. Normal global systolic LV function. The ejection fraction is visually estimated to be 60 %. No regional wall motion abnormality. Normal size right ventricle. Normal RV function. Mean mitral valve gradient 5mmHg. Mild mitral stenosis. Mitral regurgitation appears at least moderate. . Severe aortic valve calcification is present. Severe calcific aortic valve stenosis. Mean aortic valve gradient 46. Mild tricuspid regurgitation is present. Imaging supine very technically difficult. Compared with February 2018 LV ejection fraction is improved. Rhythm is now sinus rhythm. Transaortic valve gradients have increased likely due to the improvement in ejection fraction. Measurements: Chambers Valvular Assessment AV/MV Valvular Assessment TV/PV Normal Normal Normal Name Value Range Name Value Range Name Value Range LVOTd 2.0 cm 2.0 cm mm AV Vmax: 4.01 m/s (1 m/s-1.7 Visual EF: 60 % m/s) AV maxP mmHg ( - ) AV meanP mmHg ( - ) IFTIKHAR (VTI): 0.8 cm ( - ) MV meanP mmHg ( - ) MVA (Vmax): 1.4 m/s ( - ) Patient: SARAH MCCLOUD Study Date: 04/06/2018 Page 1 of 2 12:06 PM Continued Measurements: Valvular Assessment AV/MV Name Value MV VTI: 65.50 cm MR PISA radius: 8 mm Findings: Left Ventricle: Normal size left ventricle. Normal global systolic LV function. The ejection fraction is visually estimated to be 60 %. No regional wall motion abnormality. Right Ventricle: Normal size right ventricle. Normal RV function. Mitral Valve: Severe mitral annular calcification. Mean mitral valve gradient 5mmHg. Mild mitral stenosis. Mitral regurgitation appears at least moderate. . Aortic Valve: The aortic valve is tri-leaflet. Severe aortic valve calcification is present. Severe calcific aortic valve stenosis. Mean aortic valve gradient 46. Compared to the prior echo 02/25/2018, the mean gradient has increased from 23 mmhg to 46 mmhg. Tricuspid Valve: The tricuspid valve is normal in appearance and function. Mild tricuspid regurgitation is present. Pericardium: No pericardial effusion. Exam Comments: Imaging supine very technically difficult. (No Signature Object) Patient: SARAH MCCLOUD Study Date: 04/06/2018 Page 2 of 2 12:06 PM D:_[id number]
== END | disposition home or self-care (01) ==
LOC: FCATH 08:36
PROVIDERS: ATTEND Internal Medicine Cardiovascular Disease
DX: I25.10 Atherosclerotic heart disease of native coronary artery without angina pectoris (principal); I35.0 Nonrheumatic aortic (valve) stenosis; I34.0 Nonrheumatic mitral (valve) insufficiency; I50.20 Unspecified systolic (congestive) heart failure; I11.0 Hypertensive heart disease with heart failure; E78.5 Hyperlipidemia, unspecified; I77.9 Disorder of arteries and arterioles, unspecified; Z85.51 Personal history of malignant neoplasm of bladder
CPT/HCPCS: C1760; J1644; J2250; J3010; Q9967

== ENCOUNTER 2018-04-17 08:27 | Inpatient (IN) | payer OTHER ==
[~2018-04-17 08:27] MED LIST changes: +AMINOCAPROIC ACID 5 GM/20 ML VIAL IV ONE; -ASPIRIN EC 325 MG TAB PO ONE; -ATROPINE SULFATE 1 MG/10 ML SYR IVP PRN; +CARDIOPLEGIC SOLUTION 1,052.8 ML PF ONE; +CITRATE DEXTROSE SOLN 500 ML BAG MISC ONE; -DIAZEPAM 5 MG TAB ONE; -DIAZEPAM 5 MG TAB PO ONE; +DOBUTamine/DEXTROSE 250 ML IV SCH; -FAMOTIDINE 20 MG TAB ONE; -FAMOTIDINE 20 MG TAB PO ONE; -HEPARIN 10,000 UNIT/10 ML MDV (1,000 UNIT/ML) ONE; -HYDROCODONE/APAP 5/325 TAB PO PRN; +INSULIN REGULAR HUMAN 100 UNIT in NS 100 ML IV ONE; -IOPAMIDOL (ISOVUE-370) 150 ML BTL IV ONE; -LIDOCAINE 1% 300 MG/30 ML SDV ONE; +MANNITOL 25% 12.5 GM/50 ML VIAL IVP ONE; -MIDAZOLAM 2 MG/2 ML VIAL ONE; -NITROGLYCERIN 0.4 MG BTL SL PRN; +NOREPINEPHRINE BITARTRATE 16 MG in NS 250 ML IV ONE; -NS 1,000 ML IV ONE; -ONDANSETRON 4 MG/2 ML VIAL IVP PRN; -OXYCODONE/APAP 5/325 TAB PO PRN; +PAPAVERINE HCL 60 MG in NS 100 ML IV ONE; +PHENYLEPHRINE HCL 50 MG in NS 250 ML IV ONE; +VERAPAMIL 5 MG, NITROGLYCERIN 2.5 MG, HEPARIN 500 UNIT, SODIUM BICARBONATE 0.2 MEQ in L... MISC ONE; -VERAPAMIL 5 MG/2 ML VIAL ONE; -diphenhydrAMINE 25 MG CAP PO ONE; -fentaNYL 100 MCG/2 ML INJ ONE
[2018-04-17] MEDS ORDERED: PROTAMINE SULFATE 50 MG/5 ML VIAL IVP ONE (08:30)
[2018-04-17] MEDS ORDERED: MILRINONE/DEXTROSE/100 ML BAG IV ONE (08:30)
[2018-04-17] MEDS ORDERED: NA BICARBONATE 50 MEQ/50 ML VIAL ONE (08:30)
[2018-04-17] MEDS ORDERED: CALCIUM CHLORIDE 1 GM/10 ML INJ ONE ×3 (08:30→15:19)
[2018-04-17] MEDS ORDERED: HEPARIN 10,000 UNIT/10 ML MDV (1,000 UNIT/ML) ONE ×2 (08:31→08:32)
[2018-04-17] MEDS ORDERED: AMIODARONE HCL 150 MG/3 ML VIAL ONE ×2 (08:31→08:33)
[2018-04-17] MEDS ORDERED: ceFAZolin 1 GM VIAL ONE (08:31)
[2018-04-17] MEDS ORDERED: NITROGLYCERIN/D5W 50 MG/250 ML BOTTLE IV ONE (08:31)
[2018-04-17] MEDS ORDERED: ADENOSINE 6 MG/2 ML VIAL ONE (08:31)
[2018-04-17] MEDS ORDERED: DOPamine/DEXTROSE 400 MG/250 ML BAG IV ONE (08:31)
[2018-04-17] MEDS ORDERED: niCARdipine/NACL/200 ML BAG IV ONE (08:31)
[2018-04-17] MEDS ORDERED: LIDOCAINE 2% 100 MG/5 ML SYR ONE (08:32)
[2018-04-17] MEDS ORDERED: CITRATE DEXTROSE SOLN 500 ML BAG ONE (08:32)
[2018-04-17] MEDS ORDERED: SODIUM BICARBONATE 50 MEQ/50 ML SYR ONE ×2 (08:32→16:38)
[2018-04-17] MEDS ORDERED: ALBUMIN 5% 250 ML BOTTLE IV ONE ×3 (08:32→17:07)
[2018-04-17] MEDS ORDERED: methylPREDNISolone SOD SUCC 1 GM/8 ML VIAL ONE (08:33)
[2018-04-17] MEDS ORDERED: MAGNESIUM SULFATE 1 GM/2 ML VIAL ONE (08:33)
[2018-04-17] MEDS ORDERED: MUPIROCIN 2% 22 GM OINT NS ONE (08:40)
[2018-04-17] MEDS ORDERED: ceFAZolin 2 GM/DEXTROSE 100 ML IV ONE (08:40)
[2018-04-17] MEDS ORDERED: LR 1,000 ML IV ONE (08:44)
[2018-04-17] MEDS ORDERED: ROCURONIUM 100 MG/10 ML VIAL ONE (09:03)
[2018-04-17] MEDS ORDERED: PROPOFOL/EMULSION 500 MG/50 ML BOTTLE IV ONE (09:03)
[2018-04-17] MEDS ORDERED: PAPAVERINE HCL 60 MG/2 ML SDV ONE (09:04)
[2018-04-17] MEDS ORDERED: MIDAZOLAM 2 MG/2 ML VIAL IVP ONE (09:07)
--- NOTE | 2018-04-17 09:07 | PDANEPAE ---
ANE History of Present Illness here for CABG ANE Past Medical History - Cardiovascular History Hx Hypertension: Yes Hx Arrhythmias: Yes Hx Chest Pain: No Hx Coronary Artery / Peripheral Vascular Disease: Yes Hx CHF / Valvular Disease: No Hx Palpitations: No Cardiovascular History Comment: HTN. rapid AFIB. hospitalized at [facility] 02/25- for syncopal episode. hyperlipidemia. CAD. PVD hx of CEA. aortic stenosis. mitral regurg. CHF. [facility] - Pulmonary History Hx COPD: No Hx Asthma/Reactive Airway Disease: No Hx Recent Upper Respiratory Infection: No Hx Oxygen in Use at Home: No Hx Sleep Apnea: No Sleep Apnea Screening Result - Last Documented: Positive Pulmonary History Comment: alo triggers - Neurologic History Hx Cerebrovascular Accident: No Hx Seizures: No Hx Dementia: No Neurologic History Comment: peripheral polyneuropathy - Endocrine History Hx Diabetes: No - Renal History Hx Renal Disorders: Yes Renal History Comment: BPH. hx of kidney stones with removal. hx of bladder CA - Liver History Hx Hepatic Disorders: No - Neurological & Psychiatric Hx Hx Neurological and Psychiatric Disorders: No - Cancer History Hx Cancer: Yes Cancer History Comment: bladder ca - Congenital Disorder History Hx Congenital Disorders: No - GI History Hx Gastrointestinal Disorders: No - Other Health History Other Health History: wears glasses for reading. bilateral hearing aides. full set of dentures - Chronic Pain History Chronic Pain: No - Surgical History Prior Surgeries: 04/06/18 heart cath with James. 02/24/18 MIN/ CV with James. bilateral TKA's. bilateral cataracts. tonsillectomy. kidney stone removed ANE Review of Systems Review of systems is: negative Review of Systems: - Exercise capacity Exercise capacity: <4 METS METS (RN): 3 METS ANE Patient History - Allergies Allergies/Adverse Reactions: Penicillins Allergy (Verified 04/14/18 11:41) itching and hand swelling - Home Medications Home medications: home medication list seen and reviewed Home Medications: Cholecalciferol Vit D3 [Vitamin D3 (*)] 2,000 units PO DAILY 02/24/18 [Last Taken Unknown] Simvastatin [Zocor] 40 mg PO HS 02/24/18 [Last Taken 02/23/18] Tamsulosin HCl [Flomax 0.4 MG (*)] 0.4 mg PO HS 02/24/18 [Last Taken 02/23/18] Cyanocobalamin [Vitamin B12 (*)] 1,000 mcg PO DAILY 04/01/18 [Last Taken Unknown ] Furosemide [Lasix 20 MG (*)] 10 mg PO DAILY 04/01/18 [Last Taken Unknown] Lisinopril [Zestril 5 mg (*)] 5 mg PO DAILY 04/01/18 [Last Taken Unknown] Aspirin EC [Aspirin EC 81 mg (*)] 81 mg PO HS 04/12/18 [Last Taken Unknown] - NPO status NPO Status: no food or drink >8 hours - Smoking Hx Smoking Status: Former smoker - Family Anes Hx Family Hx Anesthesia Complications: none ANE Labs/Vital Signs - Vital Signs Vital Signs: reviewed preoperatively; see RN documention for details Height: 185.42 cm Weight: 106.141 kg ANE Physical Exam - Airway Neck exam: FROM Mallampati Score: Class 1 Mouth exam: dentures - Pulmonary Pulmonary: no respiratory distress - Cardiovascular Cardiovascular: regular rate and rhythym - ASA Status ASA Status: IV ANE Anesthesia Plan Anesthesia Plan: general endotracheal anesthesia Lines/Monitors: arterial line, central line, MIN
--- NOTE | 2018-04-17 09:09 | PDHPUP ---
History & Physical Update H&P update statement: This history and physical update is based on an assessment of the patient which was completed after admission or registration (within 24 hours), but prior to the surgery/procedure. H&P update: no change in patient's condition since H&P completed
[2018-04-17] MEDS ORDERED: fentaNYL 250 MCG/5 ML INJ ONE ×2 (09:22→14:02)
[2018-04-17] MEDS ORDERED: ROCURONIUM 50 MG/5 ML VIAL ONE (11:09)
[2018-04-17] MEDS ORDERED: PHENYLEPHRINE HCL 100 MCG/ML SYR ONE ×2 (11:09→15:07)
[2018-04-17] MEDS ORDERED: ePHEDrine SULFATE 25 MG/5 ML SYR ONE ×2 (11:09→15:13)
--- NOTE | 2018-04-17 15:32 | POSTOPPROG ---
Post Op Note Date of Operation: 04/17/18 Surgeon: Arthur Lantigua Assistant: Adria Rodríguez PAC Anesthesia: GET(General Endotracheal) Pre-op Diagnosis: CAD, , MR, severe mitral annular calcium, pAF Post-op Diagnosis: same Procedure: AVR#23 Intuity, MVRepair, PVI/ANGE, CABGx3 VILLAR-LAD, SVG-OM, SVG-RCA Findings: severe mitral annular calcifications Inf/Abcess present in the surg proc area at time of surgery?: No Depth: Organ Space EBL: 100-500 Complications: none Drains: Other (4 chest tubes) Specimen(s): AV
[2018-04-17] MEDS ORDERED: METOCLOPRAMIDE 10 MG/2 ML VIAL IVP PRN (15:35)
[2018-04-17] MEDS ORDERED: ONDANSETRON 4 MG/2 ML VIAL IVP PRN (15:35)
[2018-04-17] MEDS ORDERED: SODIUM CL NASAL 45 ML BTL EACHNARE PRN (15:35)
[2018-04-17] MEDS ORDERED: ACETAMINOPHEN 650 MG SUPP PR PRN (15:35)
[2018-04-17] MEDS ORDERED: POLYETHYLENE GLYCOL 3350 17 GM PKT PO PRN (15:35)
[2018-04-17] MEDS ORDERED: MEPERIDINE 25 MG/0.5 ML AMP IVP PRN (15:35)
[2018-04-17] MEDS ORDERED: ONDANSETRON DISINTEGRATING 4 MG TAB PO PRN (15:35)
[2018-04-17] MEDS ORDERED: CEPACOL LOZENGE PO PRN (15:35)
[2018-04-17] MEDS ORDERED: MAGNESIUM HYDROXIDE 30 ML UDCUP PO PRN (15:35)
[2018-04-17] MEDS ORDERED: LACTULOSE 20 GM/30 ML UDCUP PO PRN (15:35)
[2018-04-17] MEDS ORDERED: D50W 25 GM/50 ML SYR IVP PRN (15:35)
[2018-04-17] MEDS ORDERED: POTASSIUM Cl (KCl) 50 ML IV PRN (15:35)
[2018-04-17] MEDS ORDERED: PANTOPRAZOLE SODIUM 40 MG VIAL IVP ONE (15:35)
[2018-04-17] MEDS ORDERED: NS 1,000 ML IV SCH (15:45)
[2018-04-17] MEDS ORDERED: INSULIN REGULAR HUMAN 100 UNIT in NS 100 ML IV SCH (16:00)
--- NOTE | 2018-04-17 16:11 | POSTANESTH ---
Post Anesthetic Evaluation Cardiovascular Status: Normal, Stable, Tx Hyper/Hypo-tension Respiratory Status: Normal, Stable Level of Consciousness/Mental Status: Other, See Comment (intubated) Pain Control: Adequate, Prn Tx Ordered Nausea/Vomiting Control: Adequate, Prn Tx Ordered Complications Possibly Related to Anesthesia: None Noted
[2018-04-17] MEDS: ALBUMIN 5% 250 ML IV PRN ×4 (16:51→18:38)
[2018-04-17] MEDS ORDERED: SODIUM BICARBONATE 50 MEQ/50 ML SYR IVP ONE (17:00)
--- NOTE | 2018-04-17 17:37 | GOP ---
DATE OF OPERATION: SURGEON: Arthur Lantigua MD ANALOG IC DESIGN ENGINEER: Adria Rodríguez P.A.-C. PREOPERATIVE DIAGNOSIS: 1. Severe symptomatic aortic stenosis. 2. Moderately severe mitral insufficiency with extensive mitral annular calcification. 3. Paroxysmal atrial fibrillation. 4. Coronary artery disease. POSTOPERATIVE DIAGNOSIS: 1. Severe symptomatic aortic stenosis. 2. Moderately severe mitral insufficiency with extensive mitral annular calcification. 3. Paroxysmal atrial fibrillation. 4. Coronary artery disease. PROCEDURE PERFORMED: 1. Triple vessel coronary artery bypass grafting with left internal mammary artery to the left anter ior descending, saphenous vein graft from aorta to marginal 2, saphenous vein graft from aorta to rig ht coronary artery. 2. Aortic valve replacement with a 23 mm Orr Intuity bioprosthesis. 3. Mitral valve repair with closure of a cleft between the P1 and P2 portions of the posterior leafl et. 4. Bilateral pulmonary vein isolation. 5. Left atrial appendage occlusion. 6. Endoscopic vein harvest from the right leg. FINDINGS: The pericardial space was free. The ascending aorta was largely soft; however, there was extensive calcification at the sinotubular junction. The mitral anulus was massively calcified with calcium extending posteriorly to the back of the atrium. The aortic valve itself was a trileaflet, h eavily calcified stenotic valve. The coronary arteries were good size 2.5 to 3 mm vessels. The vein was good quality. The mammary was good quality. INDICATIONS: This 77-year-old gentleman has been experiencing increasing dyspnea on exertion and fat igue. Echocardiography and coronary angiography reveal multiple valvular heart disease including sev ere aortic stenosis and moderate mitral regurgitation with extensive mitral annular calcification. Rosalio floyd was also found to have 3-vessel coronary artery disease. He had good ventricular function and was otherwise a functional patient. He was recommended to go for surgical valve repair and coronary chi ry bypass grafting. DESCRIPTION OF PROCEDURE: The patient was taken to the operating placed and placed on the operating table in supine position. After the induction of general anesthesia and single lumen endotracheal tu be intubation, the patient was prepped and draped sterilely. Saphenous vein was harvested from the r ight lower leg using a minimally invasive endoscopic technique while the chest was opened via median sternotomy. The left internal mammary artery was taken down with electrocautery and hemoclips, and t he patient was then heparinized. The mammary was divided and found to have good flow. Next, the patient was cannulated with a Sarns 8.0 soft-flow aortic cannula as well as 24-Swedish and 2 8-Swedish SVC and IVC cannulae. Cardiopulmonary bypass was instituted. We inspected the distal coron pavithra vessels and then moved down to pulmonary vein isolation. Both left and right sides were treated. This was done with the RFA clamp technique, and multiple ablations were performed on each side such that on the last ablation, the clamp time was under 5 seconds. Once this was completed, we then sna red the left atrial appendage, and this was occluded. Next, the cross-clamp was applied, and the heart was arrested with 1 L of [place] solution. First, the right coronary artery was dissected. It was opened and it was anastomosed end-to-side with a vei n graft using running 7-0 Prolene. The largest marginal branch was similarly opened and then anastom osed end-to-side to a separate vein graft. Next, the LAD was opened in its midportion and anastomosed end-to-side to the left internal mammary a rtery using running 7-0 Prolene. This was allowed to flow freely. It was tacked to the epicardium a nd then reoccluded with a bulldog. The attention was next directed at the aortic valve. The aortic valve was inspected. It was heavily calcified. It was a trileaflet valve. It was resected and size d to a 23 mm Intuity bioprosthesis. Once this had been sized, attention was next directed at the [facility] ral valve. The left atrium was opened. There was massive calcification of the anulus. There was so me mobility of the leaflets and there was a cleft between P1 and P2 which I closed. It was impossibl e to place an annuloplasty ring due to the massive annular calcification and replacement of the valve was also considered too dangerous to pursue on this 77-year-old gentleman due to again massive calci fication extending into the posterior atrium. Once the posterior leaflet had been repaired, the left atrium was then closed. The aortic valve was brought up onto the field. It was seated without difficulty. The balloon was inflated and each of t he sutures were secured with a Cor-Knot device. Next, the cross-clamp was removed and a partial occlusion clamp was placed. The 2 vein grafts were e ach individually anastomosed end-to-side to the ascending aorta using running 6-0 Prolene. These wer e de-aired and allowed to flow freely. Left, right, and 2 mediastinal chest drains were placed. The patient was then from cardiopulmonary bypass without difficulty and the post pump transeso phageal echo showed a reduction in the mitral regurgitation, and normally functioning bioprosthetic v alve in aortic position. Left ventricular function appeared well preserved. The protamine was admin istered. The patient was decannulated. All the cannulation sites were doubly secured with Prolene s uture and after hemostasis had been achieved, the heart was then covered with pericardium and fat. T he chest was closed with #6 stainless steel wires. Subcutaneous tissue was then closed with running Vicryl suture. The patient tolerated the procedure well. /[id number]/MODL
--- NOTE | 2018-04-17 18:53 | GCON ---
CRITICAL CARE CONSULTATION DATE OF CONSULTATION: 04/17/2018 HISTORY OF PRESENT ILLNESS: This patient is a 77-year-old male who had a recent episode of near sync ope, was found to have atrial fibrillation and rapid ventricular response. He was cardioverted, but also noted to have severe aortic stenosis and mitral regurgitation. Was admitted today to undergo va lve surgery, as well as coronary artery bypass grafting. He had an aortic valve replacement, mitral valve repair, which was apparently difficult as there was heavy calcification of the mitral valve rachel nesha. He also underwent left atrial appendage clipping, coronary artery bypass grafting x3. The surg sarah, itself, was uncomplicated as described above. The estimated blood loss was 1 to 500 cc. He was brought to the intensive care unit on a ventilator, but had some hypotension. He was given 250 of a lbumin and there was some concern whether his A-line was working normally, but on my arrival to the o, his systolic pressure was at about 60, and both the cuff and the arterial line were in agreement with 1 another. I gave him another 250 of albumin and Levophed was started, and his blood pressure came up appropriately. He was alert during this procedure, though somewhat agitated due to the endot veda tube. CVP was running in the 12 to 14 range and heart rate was well controlled. REVIEW OF SYSTEMS: Otherwise negative. PAST MEDICAL HISTORY: Includes benign prostatic enlargement, bladder cancer, and overactive bladder, aortic stenosis, mitral regurgitation, congestive heart failure with an EF as low as 40, but up to 6 5 prior to surgery, atrial fibrillation, coronary artery disease, peripheral neuropathy, near syncope as described, hypertension, hyperlipidemia. PAST SURGICAL HISTORY: Includes today's surgery, as well as bilateral total knee arthroplasties, ton sillectomy, cataracts. FAMILY HISTORY: Includes liver cancer. SOCIAL HISTORY: He is a previous smoker. No significant alcohol. ALLERGIES: Include penicillin. MEDICATIONS: At this time, include Tylenol, p.r.n. Dilaudid, aspirin, Dulcolax, Ancef, fentanyl, ins ulin, milk of magnesia, Demerol, Reglan, morphine, Zofran, Protonix, MiraLAX, Senokot, and normal pati ine. EXAM: VITAL SIGNS: As I said, his blood pressure was on arrival about 60 systolic. At the time joy t I left the room, it was up to 128/75 with a MAP in the 70s, heart rate of about 86, respirations of upper 20s, oxygen saturation was 99% on 40% FiO2. GENERAL: The patient was responsive and agitated , and in mild to moderate distress, complaining of his endotracheal tube. HEENT: Pupils equally rou nd and reactive to light. Nonicteric and noninjected. Mucous membranes moist without erythema or ex udate. NECK: Supple without adenopathy or jugular vein distention. There was a Varina-Meghana catheter in place. LUNGS: Breath sounds were mildly coarse bilaterally, but good air exchange. HEART: Regu lar rate and rhythm and without murmurs, rubs, gallops. CHEST: His chest wall incision looked clean and dry. His chest tube output of blood was about 60 cc over about an hour. ABDOMEN: Soft, nonten fatimah, nondistended with hypoactive bowel tones. EXTREMITIES: No clubbing, cyanosis, or edema. NEURO LOGIC: Nonfocal. OBJECTIVE DATA: Labs and chest x-ray are pending at this time. I did review his previous records. ASSESSMENT/PLAN: 1. Hypotension. Appears to be responding well to volume, and hematocrit is pending at this time to decide whether or not he needs blood. He does have Levophed on targeting systolic pressure of at dario st 90 would be appropriate. I will leave that to the Cardiothoracic Surgery team. I see no evidence of cardiogenic shock, which would be highly unlikely or adrenal insufficiency or sepsis at this time . 2. Acute respiratory failure with hypoxemia after a major surgery. He appears to be doing fairly we ll. His pH is 7.3, CO2 is normal, his oxygen is normal, and his bicarb is 21. I think extubation is probably reasonable at this time and is being done as we speak. He has no known previous lung disea se I am aware of. 3. Postoperative anemia. I expect his platelets will be low, as well as his hematocrit. We will se e how low and whether or not transfusion of red cells is indicated at this time. 4. Longstanding hypertension. Certainly holding his previous lisinopril, metoprolol, and Lasix at t his time. 5. Paroxysmal atrial fibrillation. Appears to be in sinus tachycardia at the moment. We will watch for other changes that may occur. A total of about 35 minutes critical care time was involved in the evaluation management of this jb ent, including time at the bedside. /[id number]/MODL
[2018-04-17] MEDS: fentaNYL 100 MCG/2 ML INJ IVP PRN ×3 (19:00→21:53)
--- NOTE | 2018-04-17 19:40 | PDMN ---
Medical Necessity Medical necessity: MCG: S390 CABG 4 days: OP: CABG X3, Aortic valve replacement, Mitral valve repair, bilat. pulm vein isolation, L atrial appendage occlusion, endoscopic vein harvest from R leg. AUTH# [id number] APPROVED FOR CPT 75036, 53696, 25131, 48178 DONE INPNT LOS 1 DAY
[2018-04-17] MEDS: MUPIROCIN 2% 22 GM OINT NS SCH (20:56)
[2018-04-17] MEDS: ceFAZolin 2 GM/DEXTROSE 100 ML IV SCH (21:46)
[2018-04-17] MEDS ORDERED: NOREPINEPHRINE BITARTRATE 16 MG in NS 250 ML IV SCH (22:00)
[2018-04-18] MEDS: fentaNYL 100 MCG/2 ML INJ IVP PRN ×4 (01:00→08:54)
[2018-04-18] MEDS: HYDROCODONE/APAP 5/325 TAB PO PRN ×4 (03:56→15:01)
[2018-04-18] MEDS: ceFAZolin 2 GM/DEXTROSE 100 ML IV SCH ×3 (05:13→21:36)
[2018-04-18 05:33] LABS: PLATELET COUNT 95 10^3/uL (150-400)
--- NOTE | 2018-04-18 06:26 | SOAPPROG ---
SOAP Progress Note Assessment/Plan: POD: 1 s/p AVR, MVRepair, b/l PVI with ANGE, CABGx3 VILLAR-LAD, SVG-OM, SVG-RCA s/p AVR - EF as low as 40% with recent CHF hospitalization. Improved to 60% pre-op. Required NE @ 5 for cardiac support and stopped at midnight last night. Dobutamine started and at 3. CVP 8-11, CI 1.8-3.3, SVO2 43-52, PA 26/16, MAPS 65 -74. MV regurgitation with severe annular calcifications s/p MV cleft repair - see above. Paroxysmal atrial fibrillation s/p PVI, ANGE - on Eliquis pre-operatively. Will transition to Coumadin with goal INR 2-3 x 8 weeks likely tomorrow. NSR. A&V wires. Coronary artery disease s/p CABGx3 - on aspirin. Start BB when cardiac function recovers. Acute blood loss anemia with thrombocytopenia - expected, H/H 8.8/26.6, monitor. May need a pRBC transfusion if it trends down. Hyperlipidemia - will restart Zocor when tolerates. Hypertension - ACEI, lasix pre-op Post-operative pain - expected. On PRN fentanyl, norco, APAP, morphine. No ketorolac since CABG. Dispo: Wean dobutrex as tolerated Likely start BB, coumadin tomorrow Stay in ICU today Subjective: Incision pain. 350cc evac after moving to chair. Objective: General: NAD, OOB HEENT: CVL IJ, MMM Respiratory: nasal cannula oxygen, no wheezes, crackles Cardiac: NSR, no m/r/g, no edema GI: soft, nt, nd : mckenzie Extremities: trace edema Incisions: sternum/right thigh - CDI Chest tubes: serosang no airleak DVT prophylaxis: SCDs Arterial Line: y Mckenzie: y CVC: yes, need for ongoing management, labs Chest Tubes: y Pacing Wires: y Beta Louise: n Statin: n Aspirin: y ACEI/ARB: n Coumadin: n Vital Signs Temp Pulse Resp BP Pulse Ox 37.1 C 92 24 H 138/51 H 95 04/18/18 05:00 04/18/18 05:00 04/18/18 05:00 04/18/18 05:00 04/18/18 05:00 Laboratory Results 04/18/18 05:20 04/18/18 05:20 04/17/18 04/18/18 04/19/18 05:59 05:59 05:59 Intake Total 2218 Output Total 1690 Balance 528 ICD10 Worksheet Patient Problems: Problems Problem Status Onset Acute blood loss anemia Acute S/P AVR (aortic valve replacement) Acute S/P CABG x 3 Acute S/P MVR (mitral valve repair) Acute S/P left atrial appendage ligation Acute Status post circumferential ablation of pulmonary vein Acute New onset atrial fibrillation Acute Syncope Acute
[2018-04-18] MEDS ORDERED: ALBUMIN 5% 250 ML BOTTLE IV ONE (06:31)
[2018-04-18] MEDS ORDERED: ALBUMIN 5% 250 ML IV ONE (07:00)
[2018-04-18] MEDS: PANTOPRAZOLE SODIUM 40 MG TAB PO SCH (08:51)
[2018-04-18] MEDS: ASPIRIN 81 MG CHEWABLE TAB PO SCH (08:51)
[2018-04-18] MEDS: MUPIROCIN 2% 22 GM OINT NS SCH ×2 (09:13→21:36)
--- NOTE | 2018-04-18 10:00 | PDINTPN ---
Parts Professional Progress Note Assessment/Plan: 77 M with recent episode of syncope related to AF/RVR and found to have severe and MR, so underwent 3v CABG, AVR, and MV repair along with LA appendage clipping and maze procedure 04/17/18. His postop course was complicated by hypotension which responded to IVF (NS and albumin). * Hypotension- probably hypovolemia since H/H stable. Some unofficial mention of residual MR since MV annulus was heavily calcified. May need repeat echo. UOP adequate. Note the PA catheter is in the RVOT, so numbers may be challenging to interpret. CT output total 790 but H/H stable, so doubt bleeding issue. Remains on dobutamine per CT surgery * hypoxemia- related to above. Todays CXR with slight increase in RLL consolidation but still has a chest tube there. Not in favor of diuretics today. Continue with IS, OOB, etc as tolerated. * Thrombocytopenia- expected postop- no transfusion. * pAF- currently NSR * 04/18/18 10:35 Subjective: feels well today but remains on dobutamine. Extubated last pm easily. C/o incisional CP Objective: Vital Signs Temp Pulse Resp BP Pulse Ox 37.4 C 90 23 H 132/46 H 98 04/18/18 08:00 04/18/18 08:00 04/18/18 08:00 04/18/18 08:00 04/18/18 08:00 Laboratory Results 04/18/18 05:20 04/18/18 05:20 04/17/18 04/18/18 04/19/18 05:59 05:59 05:59 Intake Total 2218 Output Total 1690 455 Balance 528 -455 Physical Exam - Physical Exam General Appearance: alert, no apparent distress EENT: PERRL/EOMI, No scleral icterus (R), No scleral icterus (L) Neck: supple, other (PAC and CVC in right IJ) Respiratory: lungs clear, normal breath sounds, decreased breath sounds, No respiratory distress, No accessory muscle use Cardiac/Chest: regular rate, rhythm, No edema Abdomen: non-tender, soft, No distended Skin: normal color, warm/dry, No cyanosis Lymphatic: no adenopathy Extremities: No pedal edema Neuro/Psych: alert, normal mood/affect, oriented x 3 ICD10 Worksheet Patient Problems: Problems Problem Status Onset Acute blood loss anemia Acute S/P AVR (aortic valve replacement) Acute S/P CABG x 3 Acute S/P MVR (mitral valve repair) Acute S/P left atrial appendage ligation Acute Status post circumferential ablation of pulmonary vein Acute New onset atrial fibrillation Acute Syncope Acute
[2018-04-18] MEDS ORDERED: ASPIRIN 81 MG CHEWABLE TAB PO SCH (15:35)
[2018-04-18] MEDS ORDERED: ASPIRIN 81 MG CHEWABLE TAB TUBE PRN (15:35)
[2018-04-18] MEDS ORDERED: PANTOPRAZOLE SODIUM 40 MG TAB PO SCH (15:35)
--- NOTE | 2018-04-18 21:29 | ASMTCMCOM ---
CM Note CM Note Notes: 77yo male admitted for CHF, MV, AV, CAD. He has a Hx of Bladder CA, [place]. Patient had a CABG x 3, MVR, AVR, Ablation. Daughter Rocio present for ICU Rounds. Therapies to eval for possible discharge needs. CM to follow. Date Signed: 04/18/2018 11:16 AM Electronically Signed By:Priscila Milan LCSW
[2018-04-19] MEDS: ceFAZolin 2 GM/DEXTROSE 100 ML IV SCH (05:34)
--- NOTE | 2018-04-19 05:50 | CPEKG ---
Test Reason : OPEN Blood Pressure : / mmHG Vent. Rate : 090 BPM Atrial Rate : 089 BPM P-R Int : 170 ms QRS Dur : 138 ms QT Int : 432 ms P-R-T Axes : -08 -78 057 degrees QTc Int : 529 ms Sinus rhythm RBBB and LAFB ST elevation, consider anterolateral injury Confirmed by Pj Osorio ([id number]) on 04/19/2018 5:50:27 AM Referred By: Confirmed By:Pj Osorio
[2018-04-19] MEDS: HYDROCODONE/APAP 5/325 TAB PO PRN ×3 (05:59→21:09)
[2018-04-19 06:05] LABS: PLATELET COUNT 89 10^3/uL (150-400)
--- NOTE | 2018-04-19 06:26 | SOAPPROG ---
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 Denies SOB. Objective: Vital Signs Temp Pulse Resp BP Pulse Ox 37.3 C 90 22 H 123/54 H 100 04/19/18 04:00 04/19/18 06:00 04/19/18 06:00 04/19/18 06:00 04/19/18 06:00 Laboratory Results 04/19/18 05:30 04/19/18 05:30 04/18/18 04/19/18 04/20/18 05:59 05:59 05:59 Intake Total 2218 1591 Output Total 1690 1465 Balance 528 126 Physical Exam - Physical Exam General Appearance: WD/WN, alert, no apparent distress EENT: No scleral icterus (R), No scleral icterus (L) Neck: normal inspection Respiratory: No respiratory distress Cardiac/Chest: regular rate, rhythm Abdomen: non-tender, soft, No distended Skin: normal color, warm/dry Extremities: pedal edema Neuro/Psych: no motor/sensory deficits, alert, normal mood/affect, oriented x 3 ICD10 Worksheet Patient Problems: Problems Problem Status Onset Acute blood loss anemia Acute S/P AVR (aortic valve replacement) Acute S/P CABG x 3 Acute S/P MVR (mitral valve repair) Acute S/P left atrial appendage ligation Acute Status post circumferential ablation of pulmonary vein Acute New onset atrial fibrillation Acute Syncope Acute
[2018-04-19 08:32] LABS: INR 1.26 (0.83-1.16)
[2018-04-19] MEDS: ASPIRIN 81 MG CHEWABLE TAB PO SCH (08:48)
[2018-04-19] MEDS: AMIODARONE HCL 200 MG TAB PO SCH ×2 (08:48→21:09)
[2018-04-19] MEDS: PANTOPRAZOLE SODIUM 40 MG TAB PO SCH (08:48)
[2018-04-19] MEDS: MUPIROCIN 2% 22 GM OINT NS SCH (10:23)
[2018-04-19] MEDS ORDERED: WARFARIN SODIUM 2.5 MG TAB PO ONE ×2 (16:00→19:15)
--- NOTE | 2018-04-19 16:05 | ASMTCMCOM ---
CM Note CM Note Notes: Pt admitted for CABGx3, MVR, AVR and ablation. PT recommending SNF. OT recommending inpatient rehab. No IP rehab eval ordered. Pt prefers [facility] for short term rehab. Referral sent. CM to follow. D/C Plan: [facility] SNF pending acceptance Date Signed: 04/19/2018 04:04 PM Electronically Signed By:Radha Castañeda
[2018-04-19] MEDS: SENNOSIDES/DOCUSATE SODIUM TAB PO SCH (21:09)
[2018-04-19] MEDS: TAMSULOSIN HCL 0.4 MG CAP PO SCH (21:09)
[2018-04-19] MEDS: ACETAMINOPHEN 325 MG TAB PO PRN (21:09)
[2018-04-20] MEDS ORDERED: AMIODARONE A.FIB-LOAD DOSE(ORDER 1/3) PREMIX IV ONE (04:00)
[2018-04-20] MEDS ORDERED: AMIODARONE A.FIB-6HR INFSN (ORDER 2/3) PREMIX IV ONE (04:00)
[2018-04-20] MEDS: ACETAMINOPHEN 325 MG TAB PO PRN (04:18)
[2018-04-20] MEDS: HYDROCODONE/APAP 5/325 TAB PO PRN (04:18)
[2018-04-20 04:55] LABS: INR 1.1 (0.83-1.16); PROTIME(PATIENT) 14.4 SEC (12.0-15.0)
[2018-04-20] MEDS: traMADol 50 MG TAB PO PRN (05:26)
--- NOTE | 2018-04-20 07:44 | SOAPPROG ---
ASTRID Progress Note Assessment/Plan: POD #3: AVR with #23 Orr Intuity bioprosthesis, MV repair, b/l PVI RF ablation, exclusion ANGE, CABGx3 (VILLAR-LAD, SVG-OM, SVG-RCA) Paroxysmal atrial fibrillation s/p b/l PVI RF ablation with exclusion ANGE - OTILIA overnight with associated light-headedness and possible syncopal event after standing now rate-controlled AF on IV Amiodarone without sxs - BB when better SBP - On Eliquis pre-operatively and transition to Coumadin with goal INR 2-3 x 8 weeks underway - CTs removed, PW to remain for another day or two while on anti-arrhythmics Severe s/p AVR - Mgmt as per PVI ablation 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 Denies light-headedness. Denies SOB. Objective: Vital Signs Temp Pulse Resp BP Pulse Ox 36.6 C 92 19 105/58 L 2 L 04/20/18 07:18 04/20/18 07:18 04/20/18 07:18 04/20/18 07:31 04/20/18 07:18 Laboratory Results 04/20/18 04:30 04/20/18 04:30 04/19/18 04/20/18 04/21/18 05:59 05:59 05:59 Intake Total 1591 690 Output Total 1465 680 Balance 126 10 PT 14.4 SEC (12.0-15.0) 04/20/18 04:30 INR 1.10 (0.83-1.16) 04/20/18 04:30 Physical Exam - Physical Exam General Appearance: WD/WN, alert, no apparent distress EENT: No scleral icterus (R), No scleral icterus (L) Neck: normal inspection Respiratory: No respiratory distress Cardiac/Chest: regular rate, rhythm Abdomen: non-tender, soft, No distended Skin: normal color, warm/dry Extremities: pedal edema Neuro/Psych: no motor/sensory deficits, alert, normal mood/affect, oriented x 3 ICD10 Worksheet Patient Problems: Problems Problem Status Onset Acute blood loss anemia Acute S/P AVR (aortic valve replacement) Acute S/P CABG x 3 Acute S/P MVR (mitral valve repair) Acute S/P left atrial appendage ligation Acute Status post circumferential ablation of pulmonary vein Acute New onset atrial fibrillation Acute Syncope Acute
[2018-04-20] MEDS ORDERED: AMIODARONE A.FIB-18HR INFSN (ORDER 3/3) IV ONE (10:00)
[2018-04-20] MEDS: SENNOSIDES/DOCUSATE SODIUM TAB PO SCH ×2 (10:54→20:51)
[2018-04-20] MEDS: ASPIRIN 81 MG CHEWABLE TAB PO SCH (10:55)
[2018-04-20] MEDS: PANTOPRAZOLE SODIUM 40 MG TAB PO SCH (10:55)
--- NOTE | 2018-04-20 14:39 | ASMTCMCOM ---
CM Note CM Note Notes: 04/20/2018 Case Management Note Discussed with Darius Krause this morning. Anticipating d/c Tuesday or Tuesday. [facility]site visit from [facility] accepted [facility]. Case Management d/c poc: [facility] Case Management to follow. Date Signed: 04/20/2018 02:38 PM Electronically Signed By:Cheli Desai RN
[2018-04-20] MEDS ORDERED: WARFARIN SODIUM 5 MG TAB PO ONE (16:00)
[2018-04-20] MEDS: TAMSULOSIN HCL 0.4 MG CAP PO SCH (20:51)
[2018-04-21] MEDS: ACETAMINOPHEN 325 MG TAB PO PRN (06:23)
[2018-04-21 06:29] LABS: INR 1.59 (0.83-1.16); PROTIME(PATIENT) 19.1 SEC (12.0-15.0)
--- NOTE | 2018-04-21 08:09 | SOAPPROG ---
SOAP Progress Note Assessment/Plan: Assessment: POD#4 AVR#23 Intuity bioprosthesis, MV repair, b/l PVI RF ablation, exclusion ANGE, CABGx3 (VILLAR-LAD, SVG-OM, SVG-RCA) Paroxysmal atrial fibrillation/chronic anticoagulation with Eliquis - s/p b/l PVI RF ablation with exclusion ANGE. Recurrent sx rapid AF early postop responsive to volume and amiodarone. Antithrombotic prophylaxis switched to Coumadin, target INR 2-3, duration as per Maze protocol. Severe - s/p tissue AVR. Mgmt as per PVI ablation. Moderate to severe MR - Repair undertaken without ring annuloplasty d/t severe annular calcifications. Mild-mod residual MR accepted. Mgmt as per PVI. CAD with preserved LV systolic fx - Fully revascularized with CABG. No sig volume overload. Chest tubes out. Secondary prevention with baby ASA and statin. Beta-mark as tolerated. Diuresis as tolerated. Acute post-op blood loss anemia with thrombocytopenia - Stable s/p 1u PRBC. VTE prophylaxis with SCDs and coumadin. Plan: Transition to oral amiodarone. Follow QTc. Start low dose metoprolol. Start gentle diuresis. Keep TCPWs for one more day. Coumadin 2.5 mg today. Intensify bowel regimen. Cont inc activity. Dispo - SNF ([facility]) earliest Tuesday04/21/18 08:05 Subjective: Doing ok. Improving transfers and mobility. No dizziness. Feels tight in his hamstrings and puffy in general. Awaiting BM. Looking forward to a shower. Objective: Vital Signs Temp Pulse Resp BP Pulse Ox 36.6 C 67 18 112/56 L 99 04/21/18 07:45 04/21/18 07:45 04/21/18 07:45 04/21/18 07:45 04/21/18 07:45 Laboratory Results 04/21/18 05:50 04/20/18 04:30 04/20/18 04/21/18 04/22/18 05:59 05:59 05:59 Intake Total 690 3064 200 Output Total 680 1000 200 Balance 10 2064 0 PT 19.1 SEC (12.0-15.0) H 04/21/18 05:50 INR 1.59 (0.83-1.16) H 04/21/18 05:50 Holding SR since yest afternoon. QTc appears to be lengthening. Uptrending SBPs. Borderline suppl O2 req. + fluid balance/24 hr. +2 kg overall. INR on the rise. Physical Exam - Physical Exam General Appearance: alert, no apparent distress Respiratory: crackles (coarse, rt base) Cardiac/Chest: regular rate, rhythm, other (Sternotomy and RLE venotomy CDI) Abdomen: normal bowel sounds, non-tender, soft Skin: warm/dry Extremities: swelling (1+ general) ICD10 Worksheet Patient Problems: Problems Problem Status Onset Acute blood loss anemia Acute S/P AVR (aortic valve replacement) Acute S/P CABG x 3 Acute S/P MVR (mitral valve repair) Acute S/P left atrial appendage ligation Acute Status post circumferential ablation of pulmonary vein Acute New onset atrial fibrillation Acute Syncope Acute
[2018-04-21] MEDS: PANTOPRAZOLE SODIUM 40 MG TAB PO SCH (09:41)
[2018-04-21] MEDS: AMIODARONE HCL 200 MG TAB PO SCH ×2 (09:42→20:50)
[2018-04-21] MEDS: METOPROLOL TARTRATE 25 MG TAB PO SCH ×2 (09:42→21:31)
[2018-04-21] MEDS: ASPIRIN 81 MG CHEWABLE TAB PO SCH (09:42)
[2018-04-21] MEDS: SENNOSIDES/DOCUSATE SODIUM TAB PO SCH ×2 (09:46→21:32)
--- NOTE | 2018-04-21 10:41 | ECHO ---
[email or web address] [address] Main: [phone] Fax: [email or web address] Echocardiogram Name: SARAH MCCLOUD MR#: [id number] Study Date: 04/21/2018 Study Time: 08:52 AM Date of : 1940 Age: 77 year(s) Height: 185.4 cm (73 in.) Weight: 102.97 kg (227 lb.) BSA: 2.27 m2 Gender: Male Examination: Echo Indication: AVR with #23 Orr Intuity, MV Repair Image Quality: Adequate Contrast: Requested by: Segun Krause BP: 112 mmHg/56 mmHg Heart Rate: Rhythm: Indication: AVR with #23 Orr Intuity, MV Repair Procedure Staff Cloth Dye Range Operator: Manuela Mcintyre RD Reading Physician: Kevon Ross MD Requesting Provider: Conclusions: no pericardial effusion. Ejection fraction 60% with inferior akinesis. Normal right ventricular function. Moderate mitral regurgitation with heavily calcified annulus. Mean gradient across the valve is 12 mm of mercury. Aortic valve prosthesis without significant insufficiency mild tricuspid regurgitation. Measurements: Chambers Valvular Assessment AV/MV Valvular Assessment TV/PV Normal Normal Normal Name Value Range Name Value Range Name Value Range LVEF (BP): 52 % (>=55 %) AV Vmax: 2.04 m/s (1 m/s-1.7 EF Range: 55-60 % m/s) AV maxP mmHg ( - ) AV meanP mmHg ( - ) MV E Vmax: 2.16 m/s ( - ) MV A Vmax: 1.01 m/s ( - ) MV E/A: 2.14 ( - ) MV maxP mmHg ( - ) MV meanP mmHg ( - ) MV PHT: 0.093 s ( - ) MVA (PHT): 2.4 s ( - ) Continued Measurements: Valvular Assessment AV/MV Name Value MV DecTime: 313 m/s MV VTI: 73.80 cm Patient: SARAH MCCLOUD Study Date: 04/21/2018 Page 1 of 2 08:52 AM Findings: Left Ventricle: Normal size left ventricle. Normal global systolic LV function. The ejection fraction is estimated to be 55-60 %. Regional wall motion abnormality noted. Right Ventricle: Normal size right ventricle. Normal RV function. Left Atrium: The left atrium is normal in size. Right Atrium: The right atrium is normal in size. Mitral Valve: Moderate mitral valve leaflet calcification is present. Mitral valve repair. The prosthetic mitral valve is normal. There appears to be mild to moderate mitral regurgitation. The mean gradient across the mitral valve repair is 12 mmhg. Aortic Valve: The aortic valve is a bioprosthesis. Normal functioning aortic valve prosthesis. The prosthetic aortic valve is normal. The orifice motion of the prosthetic aortic valve is normal. No prosthesis regurgitation. #23 Orr Intuity. Tricuspid Valve: The tricuspid valve is normal in appearance and function. Mild tricuspid regurgitation is present. Pulmonic Valve: Pulmonary valve not visualized. Aorta: The aorta is normal. IVC: Subcostal imaging unable to be obtained. Pericardium: No pericardial effusion. Exam Comments: Only able to obtain apical imaging due to bandages, etc. located in parasternal and subcostal windows. (No Signature Object) Patient: SARAH MCCLOUD Study Date: 04/21/2018 Page 2 of 2 08:52 AM [id number]
[2018-04-21] MEDS ORDERED: FUROSEMIDE 20 MG/2 ML VIAL IVP ONE (15:00)
[2018-04-21] MEDS ORDERED: WARFARIN SODIUM 2.5 MG TAB PO SCH (16:00)
[2018-04-21] MEDS ORDERED: ALBUMIN 5% 250 ML IV PRN (20:16)
[2018-04-21] MEDS ORDERED: AMIODARONE HCL 100 ML IV PRN (20:16)
[2018-04-21] MEDS: traMADol 50 MG TAB PO PRN (20:50)
[2018-04-21] MEDS: BISACODYL 10 MG SUPP PR PRN (20:50)
[2018-04-21] MEDS: TAMSULOSIN HCL 0.4 MG CAP PO SCH (20:50)
[2018-04-21] MEDS: ATORVASTATIN CALCIUM 20 MG TAB PO SCH (20:50)
[2018-04-22] MEDS: traMADol 50 MG TAB PO PRN (03:57)
[2018-04-22 03:59] LABS: INR 2.43 (0.83-1.16); PROTIME(PATIENT) 26.4 SEC (12.0-15.0)
--- NOTE | 2018-04-22 08:55 | SOAPPROG ---
SOAP Progress Note Assessment/Plan: Assessment: POD#5 AVR#23 Intuity bioprosthesis, MV repair, b/l PVI RF ablation, exclusion ANGE, CABGx3 (VILLAR-LAD, SVG-OM, SVG-RCA) Paroxysmal atrial fibrillation/chronic anticoagulation with Eliquis - s/p b/l PVI RF ablation with exclusion ANGE. Recurrent sx rapid AF early postop responsive to volume and amiodarone. Symptomatic (lightheaded) afib again last night with HR in low 100's. Antithrombotic prophylaxis switched to Coumadin, target INR 2-3, duration as per Maze protocol. INR therapeutic today at 2.43. On amio PO per protocol. Follow QTc. Severe - s/p tissue AVR. Mgmt as per PVI ablation. Moderate to severe MR - Repair undertaken without ring annuloplasty d/t severe annular calcifications. Mild-mod residual MR accepted. Mgmt as per PVI. CAD with preserved LV systolic fx - Fully revascularized with CABG. No sig volume overload. Chest tubes out. Secondary prevention with baby ASA and statin. Beta-mark as tolerated. Diuresis as tolerated. Acute post-op blood loss anemia with thrombocytopenia - Stable s/p 1u PRBC. VTE prophylaxis with SCDs and coumadin. Hyponatremia - 129 today (133 yesterday); Plan to start NS IVF @ 75/cc x 24 hours. Recheck BMP tomorrow. Plan: Keep TCPWs Coumadin 1 mg today Recheck BMP tomorrow NS IVF @ 75 cc/hr x 24 hours Increase BB to 25 mg PO BID Amio 150 mg IV bolus x 1 now Dispo - [facility] ([facility]) likely Tuesday Subjective: Became lightheaded last night and flipped into afib. Objective: Vital Signs Temp Pulse Resp BP Pulse Ox 36.6 C 96 20 98/51 L 93 04/22/18 07:28 04/22/18 07:28 04/22/18 07:28 04/22/18 07:28 04/22/18 07:28 Laboratory Results 04/22/18 03:42 04/22/18 03:42 04/21/18 04/22/18 04/23/18 05:59 05:59 05:59 Intake Total 3064 200 Output Total 1000 2049 Balance 2063 -185 PT 26.4 SEC (12.0-15.0) H 04/22/18 03:42 INR 2.43 (0.83-1.16) H 04/22/18 03:42 General: NAD, laying in bed HEENT: CVL IJ, MMM Respiratory: no wheezes, crackles Cardiac: afib in the 90's, no m/r/g, no edema GI: soft, nt, nd Extremities: warm Incisions: sternum/right thigh - CDI ICD10 Worksheet Patient Problems: Problems Problem Status Onset Acute blood loss anemia Acute S/P AVR (aortic valve replacement) Acute S/P CABG x 3 Acute S/P MVR (mitral valve repair) Acute S/P left atrial appendage ligation Acute Status post circumferential ablation of pulmonary vein Acute New onset atrial fibrillation Acute Syncope Acute
[2018-04-22] MEDS ORDERED: FUROSEMIDE 20 MG TAB PO SCH (09:00)
[2018-04-22] MEDS: CHOLECALCIFEROL VIT D3 1,000 UNITS TAB PO SCH (09:57)
[2018-04-22] MEDS: METOPROLOL TARTRATE 25 MG TAB PO SCH ×2 (09:57→19:59)
[2018-04-22] MEDS: SENNOSIDES/DOCUSATE SODIUM TAB PO SCH ×2 (09:57→20:20)
[2018-04-22] MEDS: PANTOPRAZOLE SODIUM 40 MG TAB PO SCH (09:58)
[2018-04-22] MEDS: CYANO/VITAMIN B12 1000 MCG TAB PO SCH (09:58)
[2018-04-22] MEDS: AMIODARONE HCL 200 MG TAB PO SCH ×2 (09:58→19:59)
[2018-04-22] MEDS ORDERED: AMIODARONE HCL 100 ML IV ONE (10:16)
[2018-04-22] MEDS: NS 1,000 ML IV SCH (11:16)
[2018-04-22] MEDS ORDERED: WARFARIN SODIUM 1 MG TAB PO ONE (16:00)
[2018-04-22] MEDS: ASPIRIN EC 81 MG TAB PO SCH (19:58)
[2018-04-22] MEDS: TAMSULOSIN HCL 0.4 MG CAP PO SCH (19:58)
[2018-04-22] MEDS: ATORVASTATIN CALCIUM 20 MG TAB PO SCH (19:59)
[2018-04-23] MEDS: NS 1,000 ML IV SCH ×2 (03:44→21:25)
[2018-04-23 04:15] LABS: INR 2.16 (0.83-1.16); PROTIME(PATIENT) 24.1 SEC (12.0-15.0)
[2018-04-23] MEDS: CHOLECALCIFEROL VIT D3 1,000 UNITS TAB PO SCH (09:31)
[2018-04-23] MEDS: AMIODARONE HCL 200 MG TAB PO SCH ×2 (09:32→21:27)
[2018-04-23] MEDS: PANTOPRAZOLE SODIUM 40 MG TAB PO SCH (09:32)
[2018-04-23] MEDS: CYANO/VITAMIN B12 1000 MCG TAB PO SCH (09:32)
[2018-04-23] MEDS: METOPROLOL TARTRATE 25 MG TAB PO SCH ×2 (09:32→21:27)
[2018-04-23] MEDS: SENNOSIDES/DOCUSATE SODIUM TAB PO SCH ×2 (09:37→21:38)
--- NOTE | 2018-04-23 09:37 | SOAPPROG ---
SOAP Progress Note Assessment/Plan: Assessment: POD#6 AVR#23 Intuity bioprosthesis, MV repair, b/l PVI RF ablation, exclusion ANGE, CABGx3 (VILLAR-LAD, SVG-OM, SVG-RCA) Paroxysmal atrial fibrillation/chronic anticoagulation with Eliquis - s/p b/l PVI RF ablation with exclusion ANGE. Recurrent sx rapid AF early postop responsive to volume and amiodarone. Symptomatic (lightheaded) afib HR in low 100's. Responded to amio bolus and converted to NSR. Antithrombotic prophylaxis switched to Coumadin, target INR 2-3, duration as per Maze protocol. INR therapeutic today at 2.16. On amio PO per protocol. Follow QTc. Severe - s/p tissue AVR. Mgmt as per PVI ablation. Moderate to severe MR - Repair undertaken without ring annuloplasty d/t severe annular calcifications. Mild-mod residual MR accepted. Mgmt as per PVI. CAD with preserved LV systolic fx - Fully revascularized with CABG. No sig volume overload. Chest tubes out. Secondary prevention with baby ASA and statin. Beta-mark daily. Acute post-op blood loss anemia with thrombocytopenia - Stable s/p 1u PRBC. VTE prophylaxis with SCDs and Coumadin. Hyponatremia - 128 today (129 yesterday); Cont NS IVF @ 50/cc (from 75 cc). Recheck BMP tomorrow. Lasix 40 mg PO BID. Plan: Remove cardiac pacing wires today Coumadin 2 mg today, daily INRs Recheck BMP tomorrow NS IVF @ 50 cc/hr Lasix 40 mg PO BID Dispo - SNF ([facility]) tomorrow Subjective: No complaints. Converted to NSR after Amio bolus yesterday. Objective: Vital Signs Temp Pulse Resp BP Pulse Ox 36.7 C 85 25 H 119/52 L 93 04/23/18 08:00 04/23/18 08:00 04/23/18 08:00 04/23/18 08:00 04/23/18 08:00 Laboratory Results 04/22/18 03:42 04/23/18 03:41 04/22/18 04/23/18 04/24/18 05:59 05:59 05:59 Intake Total 200 1200 Output Total 2050 1500 Balance -1850 -300 PT 24.1 SEC (12.0-15.0) H 04/23/18 03:41 INR 2.16 (0.83-1.16) H 04/23/18 03:41 General: NAD, laying in bed HEENT: CVL IJ, MMM Respiratory: no wheezes, crackles Cardiac: nsr, no m/r/g, no edema GI: soft, nt, nd Extremities: warm Incisions: sternum/right thigh - CDI ICD10 Worksheet Patient Problems: Problems Problem Status Onset Acute blood loss anemia Acute S/P AVR (aortic valve replacement) Acute S/P CABG x 3 Acute S/P MVR (mitral valve repair) Acute S/P left atrial appendage ligation Acute Status post circumferential ablation of pulmonary vein Acute New onset atrial fibrillation Acute Syncope Acute
--- NOTE | 2018-04-23 11:21 | ASMTCMCOM ---
CM Note CM Note Notes: Per CT surgery, patient will d/c to [facility] tomorrow, 04/24. I notified facility Current CM Discharge plan: [facility] Date Signed: 04/23/2018 11:20 AM Electronically Signed By:Margareth Mooney RN
[2018-04-23] MEDS: FUROSEMIDE 40 MG TAB PO SCH (15:20)
[2018-04-23] MEDS ORDERED: WARFARIN SODIUM 2 MG TAB PO ONE (16:00)
[2018-04-23] MEDS: ASPIRIN EC 81 MG TAB PO SCH (21:27)
[2018-04-23] MEDS: ATORVASTATIN CALCIUM 20 MG TAB PO SCH (21:27)
[2018-04-23] MEDS: TAMSULOSIN HCL 0.4 MG CAP PO SCH (21:27)
[2018-04-24 03:28] LABS: INR 2.02 (0.83-1.16); PROTIME(PATIENT) 22.9 SEC (12.0-15.0)
--- NOTE | 2018-04-24 08:00 | SOAPPROG ---
SOAP Progress Note Assessment/Plan: Assessment: POD#7 AVR#23 Intuity bioprosthesis, MV repair, b/l PVI RF ablation, exclusion ANGE, CABGx3 (VILLAR-LAD, SVG-OM, SVG-RCA) Paroxysmal atrial fibrillation/chronic anticoagulation with Eliquis - s/p b/l PVI RF ablation with exclusion ANGE. Recurrent sx rapid AF early postop responsive to volume and amiodarone. Symptomatic (lightheaded) afib with HR in low 100's. Responded to amio bolus and converted to NSR. Antithrombotic prophylaxis switched to Coumadin, target INR 2-3, duration as per Maze protocol. INR therapeutic today at 2.02. On amio PO per protocol. Follow QTc. Severe - s/p tissue AVR. Mgmt as per PVI ablation. Moderate to severe MR - Repair undertaken without ring annuloplasty d/t severe annular calcifications. Mild-mod residual MR accepted. Mgmt as per PVI. CAD with preserved LV systolic fx - Fully revascularized with CABG. No sig volume overload. Chest tubes out. Secondary prevention with baby ASA and statin. Beta-mark daily. Acute post-op blood loss anemia with thrombocytopenia - Stable s/p 1u PRBC. VTE prophylaxis with SCDs and Coumadin. Hyponatremia - improved, normal renal fcn and autoregulating. 131 today (128 yesterday); IVF @ 50/cc. Lasix 40 mg PO BID. Plan: Stop IVF SNF ([facility]) today Subjective: Required 1 L oxygen overnight for SpO2 of 90%. No complaints. Objective: Vital Signs Temp Pulse Resp BP Pulse Ox 36.6 C 76 22 H 112/52 L 97 04/24/18 07:12 04/24/18 07:12 04/24/18 07:12 04/24/18 07:12 04/24/18 07:12 Laboratory Results 04/22/18 03:42 04/24/18 03:13 04/23/18 04/24/18 04/25/18 05:59 05:59 05:59 Intake Total 1200 1090 450 Output Total 1500 1750 25 Balance -300 -660 425 PT 22.9 SEC (12.0-15.0) H 04/24/18 03:13 INR 2.02 (0.83-1.16) H 12/17/18 03:13 General: NAD, laying in bed HEENT: CVL IJ, MMM Respiratory: no basilar wheezes, crackles Cardiac: nsr, no m/r/g, no edema GI: soft, nt, nd Extremities: warm Incisions: sternum/right thigh - CDI ICD10 Worksheet Patient Problems: Problems Problem Status Onset Acute blood loss anemia Acute S/P AVR (aortic valve replacement) Acute S/P CABG x 3 Acute S/P MVR (mitral valve repair) Acute S/P left atrial appendage ligation Acute Status post circumferential ablation of pulmonary vein Acute New onset atrial fibrillation Acute Syncope Acute
--- NOTE | 2018-04-24 08:09 | PDDCSUM ---
Discharge Summary Discharge Summary: DATE OF ADMISSION: 04/17/18 DATE OF DISCHARGE: 04/27/18 DISPOSITION: Senior Living Facility, [facility] ACTIVITY: Instructed on sternal precautions, activity restrictions, and problems to call [employer]. ADMISSION DIAGNOSES: Severe symptomatic aortic stenosis Moderately severe mitral insufficiency with extensive mitral annular calcification Paroxysmal atrial fibrillation Coronary artery disease DISCHARGE DIAGNOSES: As above plus, Persistent atrial fibrillation on anticoagulation Acute blood loss anemia with thrombocytopenia Hyponatremia Urinary retention Deconditioning/frailty Constipation PROCEDURE PERFORMED: 04/17/18 ([facility]) CABG x 3 (VILLAR-LAD, SVG-M2, SVG-RCA), AVR #23 Orr Intuity bioprosthesis, MVRepair with closure of cleft between P1 & P2 of the posterior leaflet, bilateral pulmonary vein isolation, left atrial appendage occlusion, endoscopic vein harvest from the right leg 04/21/18 ([place]) Transthoracic echocardiogram HISTORY OF PRESENT ILLNESS: This is a pleasant 77M who presented to the hospital for elective cardiac surgery. Prior to admission, he was admitted from 02/25-21 after a syncopal episode, new onset atrial fibrillation, and CHF with an EF of 40%. He had worsening SOB prior to the event. MIN-guided DCCV on 02/25 successfully converted him to NSR. Eliquis was started. LHC from 04/06/18 demonstrated recovery of EF to 65%. HOSPITAL COURSE BY PROBLEM LIST: Paroxysmal atrial fibrillation/chronic anticoagulation with Eliquis - On POD#3 , had symptomatic rapid AF treated with volume and amiodarone and was successfully converted to NSR. Again on POD#5, he had pre-syncopal episode with atrial fibrillation with RVR. He converted to NSR after amiodarone IV bolus and fluids. Prior to discharge on POD#7, he again flipped into atrial fibrillation with RVR in the 130s and was symptomatic with lightheadedness. Amiodarone boluses were given and his beta mark was increased but he remained in atrial fibrillation. He became less symptomatic with his HR closer to 100. Antithrombotic prophylaxis with Coumadin, target INR 2-3. D/w multiple times with patients organic preparation technician, Dr. Ramirez. He may be cardioverted as an outpatient. Severe , moderate-severe MR - s/p tissue AVR, MV cleft repair. Repair undertaken without ring annuloplasty d/t severe annular calcifications. Moderate residual MR seen on post-op TTE and acceptable. CAD with preserved LV systolic fx - Fully revascularized with CABG. Secondary prevention with baby ASA and statin. Beta-mark daily. Acute post-op blood loss anemia with thrombocytopenia - Symptomatic with weakness, fatigue, and shortness of breath. He received a total of 3 units of pRBCs with symptomatic improvement. Hyponatremia - As low as 128, normal renal fcn and autoregulating. Responded to NS IVF. Constipation - responded to magnesium citrate and a suppository. Avoid all narcotics. Urinary retention - on flomax pre-operatively and restarted during his hospitalization. Required straight cath on POD#8 for post-void residual of 600 cc (only 100 cc evacuated). Improvement with lasix. Avoid all narcotics. PERTINENT DISCHARGE CLINICAL INFORMATION: Sternotomy stable, CDI EVH Site, CDI, faint erythema in the right LE with 1-2+ edema, LLE trace edema HR 99 BP 110/63 SpO2 97% 1 L pre op wt 106 kg discharge wt 108.7 WBC 6.2 Hgb 10.1 HCT 30.6 Plt 262 Na 133 K 4.2 Cr 0.9 INR 1.82 CONSULTANTS: [facility] MEDICATIONS ON ADMISSION: Flomax 0.4 mg PO HS Zocor 40 mg PO HS Vit D3/B12 Toprol Xl 25 mg PO daily Lisinopril 5 mg PO daily Lasix 10 mg PO daily Eliquis 5 mg PO BID Aspirin 81 mg PO HS ALLERGIES/SENSITIVITIES: Penicillins DISCHARGE MEDICATIONS: STOP these medications: Toprol Xl 25 mg PO daily Lisinopril 5 mg PO daily Lasix 10 mg PO daily Eliquis 5 mg PO BID CONTINUE these medications: Flomax 0.4 mg PO HS Zocor 40 mg PO HS Aspirin 81 mg PO HS Vit D3/B12 NEW medications: Tylenol PRN Amiodarone Taper (last dose 05/20/17) Lasix 40 mg PO daily with Klor-Con 20 mEq PO daily Metoprolol 62.5 mg PO TID Coumadin 5 mg PO daily with goal INR 2-3 FOLLOW UP APPOINTMENTS: 1. CV surgery: [facility] on 05/05/18 @ 10:30 am. 2. Cardiology: with Dr. Ramirez at [facility] within 4-6 weeks. Appointment to be established during surgical visit. FOLLOW UP TESTING: CXR prior to surgical appointment. CBC/BMP/INR at [facility]
[2018-04-24] MEDS: CHOLECALCIFEROL VIT D3 1,000 UNITS TAB PO SCH (08:40)
[2018-04-24] MEDS: METOPROLOL TARTRATE 25 MG TAB PO SCH (08:40)
[2018-04-24] MEDS: AMIODARONE HCL 200 MG TAB PO SCH ×2 (08:40→21:07)
[2018-04-24] MEDS: CYANO/VITAMIN B12 1000 MCG TAB PO SCH (08:40)
[2018-04-24] MEDS: PANTOPRAZOLE SODIUM 40 MG TAB PO SCH (08:40)
[2018-04-24] MEDS: FUROSEMIDE 40 MG TAB PO SCH (08:40)
--- NOTE | 2018-04-24 09:01 | PDIAF ---
- Diagnosis Diagnosis: s/p AVR, MVR, PVI, ANGE, CABG Code Status: Full Code - Medication Management Additional Medication Instructions: Titrate Coumadin for goal INR 2-3. Amiodarone Taper. 200 mg PO BID x 1 week (04/21-04/28). 200 mg PO daily x 2 weeks (04/29-05/13). 100 mg PO daily x 1 week (05/14-05/21) Discharge Medications: electronically signed and located in the Home Medication List. [facility] Care - Routine: N/A - Orders Services needed: Registered Nurse, Certified Case Management Rn, Master Inside Sales Executive , Physical Therapy, Occupational Therapy Isolation Type: None Oxygen: PRN SpO2 <89% Diet Recommendation: cardiac -low fat low salt Diet Texture: Regular Texture Diet, Thin Liquids, Meds Whole w/Liquids Weigh Patient: daily Rodriguez: Not applicable Wound Care Instructions: see attached instructions Activity/Weight Bearing Restrictions: see attached instructions Additional Instructions: Cardiac Surgery Instructions Call [facility] cardiac rehab to enroll in phase 2 classes once released from [facility]. Sternal precautions x 4 weeks. Avoid lifting > 10lbs with an outstretched arm. Avoid push/pull activities. Cleanse wounds once daily with soap and water. Avoid underwater immersion (pool , hot tub, bath) until scabs off. Ok to leave all wounds open to air. Avoid creams or ointments until scabs off. Elevate low legs at rest. Avoid prolonged standing or dangling. Log daily vital signs: weight, resting heart rate over 1 minute, blood pressure , +/- pulse oximetry. When to call [facility]: Resting heart rate <60 or >120 Systolic blood pressure consistently <90 or >160. Weekly gain >5lbs or worsening leg swelling Questions/concerns Target oxygen saturation > 89%. Adjustments per cardiac rehab. Please obtain a chest xray prior to surgical appointment. Use requisition form attached to appointment card. Chest x-rays don't require an appointment. Go to the Emergency Room entrance at the [facility] location. Sign in at the computer kiosk in the entryway. You will be given a number & may sit in the waiting area until called. You will be registered and directed to Imaging on the 1st floor. This process can take up to an hour. Please allow at least 30 min before your appt to get x-ray taken. Okay to use [id number] medications for iron supplementation, bowel function or pain. Consider Tylenol 500-650 mg with meals and before bed. Max daily dose of Tylenol 3000 mg. Avoid nonsteroidal anti-inflammatories (ie. Ibuprofen, advil, motrin, aleve) x 3 months for interference with beneficial effects of aspirin on graft flow. Lifelong antibiotic prophylaxis prior to dental, respiratory tract, or skin/ soft tissue procedures. Daily INRs while in rehab. - Labs/Radiology BMP Date: 04/27/18 (Repeat in 3 days if abnormal; results to [facility] attn : Caryl Tavares) PT/INR Date: 04/25/18 (Goal INR 2-3, titrate. When therapeutic, may monitor per SNF protocol.) Imaging Orders: Pre-clinic CXR at [facility] Call or Fax Lab and Imaging Results to: ATTN: Anselmo Tavares RN [facility] - Follow Up Care Current Providers and Referrals: Matt Hines MD [Primary Care Provider] - Arthur Lantigua MD [Medical Doctor] - 05/05/18 10:30 am (Dr Byrnes overseeing clinic) Cathy Ramirez MD [Medical Doctor] -
[2018-04-24] MEDS ORDERED: AMIODARONE HCL 100 ML IV ONE ×2 (09:38→16:18)
[2018-04-24] MEDS ORDERED: METOPROLOL TARTRATE 5 MG/5 ML INJ IVP ONE ×2 (09:45→17:30)
[2018-04-24] MEDS: SENNOSIDES/DOCUSATE SODIUM TAB PO SCH ×2 (09:46→21:58)
[2018-04-24] MEDS ORDERED: METOPROLOL TARTRATE 25 MG TAB PO ONE (11:52)
--- NOTE | 2018-04-24 14:23 | ASMTCMCOM ---
CM Note CM Note Notes: Patient had an episode of A fib today, so discharge delayed until tomorrow, 04/25. I notified Janel at [facility]. Date Signed: 04/24/2018 11:06 AM Electronically Signed By:Margareth Mooney RN
[2018-04-24] MEDS ORDERED: WARFARIN SODIUM 2.5 MG TAB PO ONE (16:15)
[2018-04-24] MEDS ORDERED: NS 500 ML IV ONE (18:25)
[2018-04-24] MEDS ORDERED: METOPROLOL TARTRATE 50 MG TAB PO SCH (21:00)
[2018-04-24] MEDS ORDERED: METOPROLOL TARTRATE 25 MG TAB PO SCH (21:00)
[2018-04-24] MEDS: ASPIRIN EC 81 MG TAB PO SCH (21:07)
[2018-04-24] MEDS: ATORVASTATIN CALCIUM 20 MG TAB PO SCH (21:07)
[2018-04-24] MEDS: TAMSULOSIN HCL 0.4 MG CAP PO SCH (21:07)
[2018-04-25] MEDS: ACETAMINOPHEN 325 MG TAB PO PRN ×2 (05:13→20:46)
[2018-04-25 05:24] LABS: INR 1.76 (0.83-1.16); PROTIME(PATIENT) 20.6 SEC (12.0-15.0)
[2018-04-25] MEDS: SENNOSIDES/DOCUSATE SODIUM TAB PO SCH ×2 (06:05→20:46)
--- NOTE | 2018-04-25 08:27 | SOAPPROG ---
SOAP Progress Note Assessment/Plan: Assessment: POD#8 AVR#23 Intuity bioprosthesis, MV repair, b/l PVI RF ablation, exclusion ANGE, CABGx3 (VILLAR-LAD, SVG-OM, SVG-RCA) Paroxysmal atrial fibrillation/chronic anticoagulation with Eliquis s/p b/l PVI RF ablation with exclusion ANGE. - Symptomatic PAF on POD3 & POD5 - responsive to amio, volume and bb with conversion to NSR - POD 7 - symptomatic PAF just prior to discharge, unresponsive to aggressive amio boluses, bb, volume, remains in non symptomatic afib with HR 100's-110's, becomes symptomatic with HR in 130's - Antithrombotic prophylaxis switched to Coumadin, target INR 2-3, duration as per [facility] protocol. INR subtherapeutic today at 1.76 Severe - s/p tissue AVR. Mgmt as per PVI ablation. Moderate to severe MR - Repair undertaken without ring annuloplasty d/t severe annular calcifications. Mild-mod residual MR accepted. Mgmt as per PVI. CAD with preserved LV systolic fx - Fully revascularized with CABG. No sig volume overload. Chest tubes out. Secondary prevention with baby ASA and statin. Beta-mark daily. Acute post-op blood loss anemia with thrombocytopenia - Stable s/p 1u PRBC. VTE prophylaxis with SCDs and Coumadin. Hyponatremia - improved, normal renal fcn and autoregulating. 133 today (131 yesterday); IVF @ 50/cc. Lasix 40 mg PO BID. Plan: Dr. Lantigua d/w Dr. Ramirez re: recurrent PAF Transfuse 1 prbc today Inc BB to 75 mg PO BID Coumadin 2.5 mg PO If we can get him rate-controlled, possible SNF discharge this afternoon Subjective: Some weakness. H/H confirms anemia. PAF yesterday - received therapy below. Lopressor 100 mg PO Lopressor 5 mg IV Amiodarone 300 mg IV bolus Amiodarone 400 mg PO NS 500 cc bolus Objective: Vital Signs Temp Pulse Resp BP Pulse Ox 36.6 C 108 H 24 H 99/64 L 92 04/25/18 07:20 04/25/18 08:10 04/25/18 07:20 04/25/18 08:10 04/25/18 07:20 Laboratory Results 04/25/18 05:05 04/25/18 05:05 04/24/18 04/25/18 04/26/18 05:59 05:59 05:59 Intake Total 1090 1630 Output Total 1750 1100 Balance -660 530 PT 20.6 SEC (12.0-15.0) H 04/25/18 05:05 INR 1.76 (0.83-1.16) H 04/25/18 05:05 General: NAD, laying in bed HEENT: CVL IJ, MMM Respiratory: no basilar wheezes, crackles Cardiac: afib 100's, no m/r/g, no edema GI: soft, nt, nd Extremities: warm Incisions: sternum/right thigh - CDI ICD10 Worksheet Patient Problems: Problems Problem Status Onset Acute blood loss anemia Acute S/P AVR (aortic valve replacement) Acute S/P CABG x 3 Acute S/P MVR (mitral valve repair) Acute S/P left atrial appendage ligation Acute Status post circumferential ablation of pulmonary vein Acute New onset atrial fibrillation Acute Syncope Acute
[2018-04-25] MEDS: METOPROLOL TARTRATE 50 MG TAB PO SCH ×2 (09:43→20:47)
[2018-04-25] MEDS: CYANO/VITAMIN B12 1000 MCG TAB PO SCH (09:45)
[2018-04-25] MEDS: AMIODARONE HCL 200 MG TAB PO SCH ×2 (09:45→20:46)
[2018-04-25] MEDS: CHOLECALCIFEROL VIT D3 1,000 UNITS TAB PO SCH (09:45)
[2018-04-25] MEDS: PANTOPRAZOLE SODIUM 40 MG TAB PO SCH (09:46)
[2018-04-25] MEDS ORDERED: MAGNESIUM CITRATE 300 ML BOTTLE PO ONE (13:43)
[2018-04-25] MEDS: BISACODYL 10 MG SUPP PR PRN (14:30)
[2018-04-25] MEDS ORDERED: WARFARIN SODIUM 2.5 MG TAB PO ONE (16:00)
[2018-04-25] MEDS: TAMSULOSIN HCL 0.4 MG CAP PO SCH (20:46)
[2018-04-25] MEDS: ATORVASTATIN CALCIUM 20 MG TAB PO SCH (20:46)
[2018-04-25] MEDS: ASPIRIN EC 81 MG TAB PO SCH (20:47)
[2018-04-26 05:44] LABS: INR 1.69 (0.83-1.16)
[2018-04-26] MEDS ORDERED: FUROSEMIDE 40 MG TAB PO SCH (09:00)
[2018-04-26] MEDS: SENNOSIDES/DOCUSATE SODIUM TAB PO SCH (09:08)
--- NOTE | 2018-04-26 09:40 | SOAPPROG ---
SOAP Progress Note Assessment/Plan: Assessment: POD#9 AVR#23 Intuity bioprosthesis, MV repair, b/l PVI RF ablation, exclusion ANGE, CABGx3 (VILLAR-LAD, SVG-OM, SVG-RCA) Paroxysmal atrial fibrillation/chronic anticoagulation with Eliquis s/p b/l PVI RF ablation with exclusion ANGE. - Symptomatic PAF on POD3 & POD5 - responsive to amio, volume and bb with conversion to NSR - POD 7 - symptomatic PAF just prior to discharge, unresponsive to aggressive amio boluses, bb, volume, remains in non symptomatic afib with HR 100's-110's, becomes symptomatic with HR in 130's. BB has been titrated up under the direction of Dr. Ramirez. Likely will be d/c in atrial fibrillation - Antithrombotic prophylaxis switched to Coumadin, target INR 2-3, duration as per [facility] protocol. INR subtherapeutic today at 1.69. Coumadin 5 mg today. - Amio 200 mg PO BID changes to Amio 200 PO daily on 04/28 per protocol Severe - s/p tissue AVR. Mgmt as per PVI ablation. Moderate to severe MR - Repair undertaken without ring annuloplasty d/t severe annular calcifications. Mild-mod residual MR accepted. Mgmt as per PVI. CAD with preserved LV systolic fx - Fully revascularized with CABG. No sig volume overload. Chest tubes out. Secondary prevention with baby ASA and statin. Beta-mark daily. Acute post-op blood loss anemia with thrombocytopenia - Appropriate response to 2 pRBCs yesterday (Hct 24.6->30.6) for symptomatic weakness, fatigue, SOB. 3 total PRBC this hospitalization. VTE prophylaxis with SCDs and Coumadin. Hyponatremia - improved, normal renal fcn and autoregulating. Check BMP PRN. Constipation - responded to suppository and mag citrate yesterday and feels better, monitor Urinary retention - straight cath yesterday for a post-void bladder scan of 600cc (100cc evacuated), on flomax (also on pre-op). Restarting his lasix today as well. May need urology input if retention continues. Frailty/deconditioning - PTOT Plan: BB 50 mg PO TID starting today, HR has been resistant to conventional therapies thus far Coumadin 5mg today, INR tomorrow Start lasix 40 mg PO daily c KCl 20 mEq PO daily If his SOB improves and responds to diuresis, may go to SNF tomorrow. Family on board. Subjective: Constipation has improved and feels better overall. Feels mild shortness of breath with LE edema. CXR yesterday improved with mild congestion Objective: Vital Signs Temp Pulse Resp BP Pulse Ox 36.6 C 93 18 99/68 L 96 04/26/18 07:38 04/26/18 07:38 04/26/18 07:38 04/26/18 07:38 04/26/18 07:38 Laboratory Results 04/26/18 04:30 04/25/18 05:05 04/25/18 04/26/18 04/27/18 05:59 05:59 05:59 Intake Total 1630 1290 Output Total 1100 1525 200 Balance 530 -235 -200 PT 20.0 SEC (12.0-15.0) H 04/26/18 04:30 INR 1.69 (0.83-1.16) H 04/26/18 04:30 General: NAD, OOB in chair HEENT: CVL IJ, MMM Respiratory: no basilar wheezes, crackles Cardiac: afib 100's, no m/r/g, 1-2+ edema GI: soft, nt, nd Extremities: warm Incisions: sternum/right thigh - CDI ICD10 Worksheet Patient Problems: Problems Problem Status Onset Acute blood loss anemia Acute S/P AVR (aortic valve replacement) Acute S/P CABG x 3 Acute S/P MVR (mitral valve repair) Acute S/P left atrial appendage ligation Acute Status post circumferential ablation of pulmonary vein Acute New onset atrial fibrillation Acute Syncope Acute
[2018-04-26] MEDS ORDERED: POTASSIUM CL 20 MEQ TAB PO SCH (09:45)
[2018-04-26] MEDS: METOPROLOL TARTRATE 50 MG TAB PO SCH ×3 (09:49→21:23)
[2018-04-26] MEDS: AMIODARONE HCL 200 MG TAB PO SCH ×2 (09:49→21:23)
[2018-04-26] MEDS: CHOLECALCIFEROL VIT D3 1,000 UNITS TAB PO SCH (09:49)
[2018-04-26] MEDS: CYANO/VITAMIN B12 1000 MCG TAB PO SCH (09:49)
[2018-04-26] MEDS: PANTOPRAZOLE SODIUM 40 MG TAB PO SCH (09:49)
[2018-04-26] MEDS ORDERED: WARFARIN SODIUM 5 MG TAB PO ONE (16:00)
[2018-04-26] MEDS ORDERED: FUROSEMIDE 40 MG/4 ML VIAL IVP ONE (17:00)
[2018-04-26] MEDS: ASPIRIN EC 81 MG TAB PO SCH (21:23)
[2018-04-26] MEDS: TAMSULOSIN HCL 0.4 MG CAP PO SCH (21:23)
[2018-04-26] MEDS: ATORVASTATIN CALCIUM 20 MG TAB PO SCH (21:23)
[2018-04-27 04:04] LABS: INR 1.82 (0.83-1.16); PROTIME(PATIENT) 21.2 SEC (12.0-15.0)
[2018-04-27] MEDS: METOPROLOL TARTRATE 50 MG TAB PO SCH (08:02)
[2018-04-27] MEDS: AMIODARONE HCL 200 MG TAB PO SCH (08:02)
[2018-04-27] MEDS: PANTOPRAZOLE SODIUM 40 MG TAB PO SCH (08:02)
[2018-04-27] MEDS: CYANO/VITAMIN B12 1000 MCG TAB PO SCH (08:02)
[2018-04-27] MEDS: CHOLECALCIFEROL VIT D3 1,000 UNITS TAB PO SCH (08:02)
[2018-04-27] MEDS ORDERED: METOPROLOL TARTRATE 25 MG TAB PO ONE (08:54)
[2018-04-27] MEDS ORDERED: FUROSEMIDE 40 MG TAB PO SCH (09:00)
[2018-04-27] MEDS ORDERED: POTASSIUM CL 20 MEQ TAB PO SCH (09:00)
--- NOTE | 2018-04-27 09:13 | SOAPPROG ---
SOAP Progress Note Assessment/Plan: Assessment: POD#10 AVR#23 Intuity bioprosthesis, MV repair, b/l PVI RF ablation , exclusion ANGE, CABGx3 (VILLAR-LAD, SVG-OM, SVG-RCA) Paroxysmal atrial fibrillation/chronic anticoagulation with Eliquis s/p b/l PVI RF ablation with exclusion ANGE. - Symptomatic PAF on POD3 & POD5 - responsive to amio, volume and bb with conversion to NSR - POD 7 - symptomatic PAF just prior to discharge, unresponsive to aggressive amio boluses, bb, volume, remains in non symptomatic afib with HR 100's-110's, becomes symptomatic with HR in >130's. BB has been titrated up under the direction of Dr. Ramirez. Consider cardioversion as an o/p. - Antithrombotic prophylaxis switched to Coumadin, target INR 2-3, duration as per [facility] protocol. INR subtherapeutic today at 1.82. Coumadin 5 mg today. - Amio 200 mg PO BID changes to Amio 200 PO daily on 04/28 per protocol Severe - s/p tissue AVR. Mgmt as per PVI ablation. Moderate to severe MR - Repair undertaken without ring annuloplasty d/t severe annular calcifications. Mild-mod residual MR accepted. Mgmt as per PVI. CAD with preserved LV systolic fx - Fully revascularized with CABG. No sig volume overload. Chest tubes out. Secondary prevention with baby ASA and statin. Beta-mark daily. Acute post-op blood loss anemia with thrombocytopenia - Appropriate response to 2 pRBCs (Hct 24.6->30.6) for symptomatic weakness, fatigue, SOB. 3 total PRBC this hospitalization. VTE prophylaxis with SCDs and Coumadin. Hyponatremia - improved, normal renal fcn and autoregulating. Constipation - responded to suppository and mag citrate yesterday and feels better, monitor Urinary retention - straight cath x1 for a post-void bladder scan of 600cc ( 100cc evacuated), on flomax (also on pre-op). Frailty/deconditioning - PTOT Plan: Inc BB to 62.5 mg TID, monitor BP Coumadin 5mg today as well Lasix 40 mg PO daily c KCl 20 mEq PO daily Monitor right LE for cellulitis Recheck K prior to discharge SNF discharge this afternoon Subjective: Resting HR 90-100's. With activity as high as 150's. Strength is improving. INR 1.82. Objective: Vital Signs Temp Pulse Resp BP Pulse Ox 36.6 C 99 18 121/67 H 96 04/27/18 07:14 04/27/18 07:14 04/27/18 07:14 04/27/18 07:14 04/27/18 07:14 Laboratory Results 04/26/18 04:30 04/25/18 05:05 04/26/18 04/27/18 04/28/18 05:59 05:59 05:59 Intake Total 1290 1000 Output Total 1525 1475 Balance -235 -475 PT 21.2 SEC (12.0-15.0) H 04/27/18 03:40 INR 1.82 (0.83-1.16) H 04/27/18 03:40 General: NAD, OOB in chair HEENT: CVL IJ, MMM Respiratory: no basilar wheezes, crackles Cardiac: afib 100's, no m/r/g, 1-2+ edema in the right leg with faint erythema ; left leg trace edema GI: soft, nt, nd Extremities: warm Incisions: sternum/right thigh - CDI ICD10 Worksheet Patient Problems: Problems Problem Status Onset Acute blood loss anemia Acute S/P AVR (aortic valve replacement) Acute S/P CABG x 3 Acute S/P MVR (mitral valve repair) Acute S/P left atrial appendage ligation Acute Status post circumferential ablation of pulmonary vein Acute New onset atrial fibrillation Acute Syncope Acute
--- NOTE | 2018-04-27 10:00 | PDIAF ---
- Diagnosis Diagnosis: s/p AVR, MVR, PVI, ANGE, CABG, active AFIB Code Status: Full Code - Medication Management Additional Medication Instructions: Titrate Coumadin for goal INR 2-3. Amiodarone Taper. 200 mg PO daily x 2 weeks (04/28-05/12). 100 mg PO daily x 1 week (05/13-05/20) Discharge Medications: electronically signed and located in the Home Medication List. PICC Care - Routine: N/A - Orders Services needed: Registered Nurse, Certified Auto Apprentice Mechanic, Master Fruit Harvest Machine Operator , Physical Therapy, Occupational Therapy Isolation Type: None Oxygen: PRN SpO2 <89% Diet Recommendation: no restrictions on diet, fluid restriction (use comment for amount) (2000 cc (okay to exclude boost or similar brand from total restriction)) Diet Texture: Regular Texture Diet, Thin Liquids, Meds Whole w/Liquids Weigh Patient: daily Rodriguez: Not applicable Wound Care Instructions: see attached instructions Activity/Weight Bearing Restrictions: see attached instructions Additional Instructions: Cardiac Surgery Instructions Call [facility] cardiac rehab to enroll [facility] Sternal precautions x 4 weeks. Avoid lifting > 10lbs with an outstretched arm. Avoid push/pull activities. Cleanse wounds once daily with soap and water. Avoid underwater immersion (pool , hot tub, bath) until scabs off. Okay to leave all wounds open to air. Avoid creams or ointments until scabs off. Elevate low legs at rest. Avoid prolonged standing or dangling. Log daily vital signs: weight, resting heart rate over 1 minute, blood pressure , pulse oximetry. When to call [facility]: Consistent resting heart rate <60 or >130 and/or is symptomatic; please note patient is in atrial fibrillation. Consistent systolic blood pressure <90 or >160. Weekly gain >5lbs or worsening leg swelling Worsening leg swelling redness (right vein harvest site) Questions/concerns Target oxygen saturation > 89%. Adjustments per cardiac rehab. Please obtain a chest xray prior to surgical appointment. Use requisition form attached to appointment card. Chest x-rays don't require an appointment. Go to the Emergency Room entrance at the [facility] location. Sign in at the computer kiosk in the entryway. You will be given a number & may sit in the waiting area until called. You will be registered and directed to Imaging on the 1st floor. This process can take up to an hour. Please allow at least 30 min before your appt to get x-ray taken. Okay to use [id number] medications for iron supplementation, bowel function or pain. Consider Tylenol 500-650 mg with meals and before bed for pain control. Max daily dose of Tylenol 3000 mg. Avoid nonsteroidal anti-inflammatories (ie. Ibuprofen, advil, motrin, aleve) x 3 months for interference with beneficial effects of aspirin on graft flow. Lifelong antibiotic prophylaxis prior to dental, respiratory tract, or skin/ soft tissue procedures. Coumadin titrated for goal INR 2-3. CBC/BMP 05/01 in rehab then repeat at discretion of SNF provider. Please send results to [facility] Attn: Caryl Tavares. - Labs/Radiology BMP Date: 05/01/18 (Results to [facility] attn: Caryl Tavares) CBC w/diff Date: 05/01/18 (Results to [facility] attn: Caryl Tavares) PT/INR Date: 04/28/18 (Goal INR 2-3, titrate. When therapeutic, may monitor per [facility] protocol.) Imaging Orders: Pre-clinic CXR at [facility] Call or Fax Lab and Imaging Results to: ATTN: Anselmo Tavares RN [facility] - Follow Up Care Current Providers and Referrals: Matt Hines MD [Primary Care Provider] - Arthur Lantigua MD [Medical Doctor] - 05/05/18 10:30 am (Dr Byrnes overseeing clinic) Cathy Ramirez MD [Medical Doctor] -
[2018-04-27 11:03] VITALS: BP 110/63
--- NOTE | 2018-04-27 12:48 | ASMTDCNOTE ---
Case Management Discharge Discharge Order Complete? Answers: Yes Patient to Obtain Answers: Other Notes: [facility] Medications Transportation Arranged Answers: Other Notes: [place] w/c transport Transport will Pick (Date 04/27/2018 04:30 PM & Time) EMTALA Complete Answers: No Case Management Transport Answers: No Form Complete Faxed Final Orders Answers: Yes Agency/Facility Transfer Answers: Yes Report Printed & Faxed to Receiving Agency Family Notified Answers: Yes Discharge Comments Notes: Pts case discussed w/ LAINE Covington and DENISE Carreon. Pt is being d/c'd today. DC orders sent to [facility]. Velma will call to give report. CM notified Mariana, daughter for the d/c. CM available for changes. Plan: [facility] Date Signed: 04/27/2018 12:48 PM Electronically Signed By:ANALISA Posey
--- NOTE | 2018-04-27 12:49 | ASMTLACE ---
LACE Length of stay for Answers: 7-13 days current admission Acuity / Level of Answers: Yes Care: Did the patient have an inpatient admission? Comorbidities - select Answers: Any tumor (including all that apply lymphoma or leukemia) Congestive heart failure Coronary Artery Disease Peripheral vascular disease Other Notes: HTN; HLD # of Emergency department Answers: 1-2 visits in the last 6 months Score: 17 Date Signed: 04/27/2018 12:49 PM Electronically Signed By:ANALISA Posey
--- NOTE | 2018-04-27 12:52 | ASDISCHSUM ---
Discharge Information Plan Status:SNF Medically Cleared to Leave:04/26/2018 Discharge Date:04/26/2018 CM D/C Disposition: ADT D/C Disposition:[facility] Facility Projected Discharge Date:04/27/2018 11:00 AM Transportation at D/C: Discharge Delay Reason: Follow-Up Date:04/27/2018 11:00 AM Discharge Slot: Final Diagnosis:CHF, MV, AV, CAD Placement Information Referral Type:*Assisted/SNF Referral ID:[id number] Provider Name:[facility] Address 1:[address] Address 2: City:[place] Selection Factors: State:[place] Patient Contact Information Contact Name:DREW Relationship:Daughter Address: Work Phone: City:[place] Alternate Phone: State/Zip Code:[place] Email: Financial Information Financial Class:Medicare Advantage Plans Primary Plan Desc:[facility] [employer] Primary Plan Number:[id number] Secondary Plan Desc: Secondary Plan Number: Assessment Information LACE LACE Length of stay for Answers: 7-13 days current admission Acuity / Level of Answers: Yes Care: Did the patient have an inpatient admission? Comorbidities - select Answers: Any tumor (including all that apply lymphoma or leukemia) Congestive heart failure Coronary Artery Disease Peripheral vascular disease Other Notes: HTN; HLD # of Emergency department Answers: 1-2 visits in the last 6 months Score: 17 Date Signed: 04/27/2018 12:49 PM Electronically Signed By:ANALISA Posey [facility] CM Progress Note CM Note CM Note Notes: 77yo male admitted for CHF, MV, AV, CAD. He has a Hx of Bladder CA, BEAVER. Patient had a CABG x 3, MVR, AVR, Ablation. Daughter Rocio present for ICU Rounds. Therapies to eval for possible discharge needs. CM to follow. Date Signed: 04/18/2018 11:16 AM Electronically Signed By:Priscila Milan LCSW [facility] CM Progress Note CM Note CM Note Notes: Pt admitted for CABGx3, MVR, AVR and ablation. PT recommending SNF. OT recommending inpatient rehab. No IP rehab eval ordered. Pt prefers [facility] for short term rehab. Referral sent. CM to follow. D/C Plan: [facility] pending acceptance Date Signed: 04/19/2018 04:04 PM Electronically Signed By:Radha Castañeda [facility] CM Progress Note CM Note CM Note Notes: 04/20/2018 Case Management Note Discussed with Darius Krause this morning. Anticipating d/c Tuesday or Tuesday. [facility]site visit from [facility]. [facility] accepted pt. Case Management d/c poc: [facility] Case Management to follow. Date Signed: 04/20/2018 02:38 PM Electronically Signed By:Cheli Desai RN [facility] CM Progress Note CM Note CM Note Notes: Per CT surgery, patient will d/c to [facility] tomorrow, 04/24. I notified facility Current CM Discharge plan: [facility] Date Signed: 04/23/2018 11:20 AM Electronically Signed By:Margareth Mooney RN [facility] CM Progress Note CM Note CM Note Notes: Patient had an episode of A fib today, so discharge delayed until tomorrow, 04/25. I notified Janel at [facility]. Date Signed: 04/24/2018 11:06 AM Electronically Signed By:Margareth Mooney RN Case Management Discharge Plan Note Case Management Discharge Discharge Order Complete? Answers: Yes Patient to Obtain Answers: Other Notes: [facility] Medications Transportation Arranged Answers: Other Notes: Rm [place] w/c transport Transport will Pick (Date 04/27/2018 04:30 PM & Time) IRAJ Complete Answers: No Case Management Transport Answers: No Form Complete Faxed Final Orders Answers: Yes Agency/Facility Transfer Answers: Yes Report Printed & Faxed to Receiving Agency Family Notified Answers: Yes Discharge Comments Notes: Pts case discussed w/ LAINE Covington and DENISE Carreon. Pt is being d/c'd today. DC orders sent to [facility]. Velma will call to give report. notified Mariana, daughter for the d/c. CM available for changes. Plan: [facility] Date Signed: 04/27/2018 12:48 PM Electronically Signed By:ANALISA Posey Intervention Information Intervention Type:*IM-Signed Date of Service:04/27/2018 12:03 PM Patient Type:Inpatient Staff Member:Lisa Wilburn Hours: Discipline: Severity: Comment:
[2018-04-27] MEDS ORDERED: METOPROLOL TARTRATE 25 MG TAB PO SCH (14:00)
[2018-04-27] MEDS ORDERED: WARFARIN SODIUM 5 MG TAB PO ONE (16:00)
--- NOTE | 2018-05-03 10:40 | PQFORM ---
PHYSICIAN QUERY FORM Needs Your Response This query form is being sent to you to assure this patient record is coded properly. Please respond to the question below: CLEANER AND POLISHER QUESTION: Dr Grzegorz De La Torre's consult mentions Acute Hypoxic Respiratory Failure but I see no other mention in the progress notes or in the Discharge Summary. Just to clarify - did this patient have Acute Hypoxic Respiratory Failure ? ___ Yes ___ No ___ Other (please Specify ) ___ Unable to determine Thank You Tessa PEREZ Correction Warden INSTRUCTIONS FOR RESPONSE: Answer question by clicking on the "Edit Document" button. Move cursor to area below the stars. When complete, hit "Save." Click on the "Sign" button, then click "Sign" again. Type in your PIN and hit "Enter." MTDD
== END 2018-04-27 16:42 | DRG 220 ==
LOC: F2W 08:27 → F2N 14:38 → F2W 04-19 09:15
PROVIDERS: ADMIT Family Medicine; ATTEND Thoracic Surgery (Cardiothoracic Vascular Surgery)
PROC: 02QG0ZZ Repair Mitral Valve, Open Approach (ICD-10-PCS; principal; 2018-04-17 09:36)
PROC: 02RF0JZ Replacement of Aortic Valve with Synthetic Substitute, Open Approach (ICD-10-PCS; principal; 2018-04-17 09:36)
PROC: 5A1221Z Performance of Cardiac Output, Continuous (ICD-10-PCS; principal; 2018-04-17 09:36)
PROC: 02100Z9 Bypass Coronary Artery, One Artery from Left Internal Mammary, Open Approach (ICD-10-PCS; principal; 2018-04-17 09:36)
PROC: 021109W Bypass Coronary Artery, Two Arteries from Aorta with Autologous Venous Tissue, Open Approach (ICD-10-PCS; principal; 2018-04-17 09:36)
PROC: 02L70CK Occlusion of Left Atrial Appendage with Extraluminal Device, Open Approach (ICD-10-PCS; principal; 2018-04-17 09:36)
PROC: 06BQ4ZZ Excision of Left Saphenous Vein, Percutaneous Endoscopic Approach (ICD-10-PCS; principal; 2018-04-17 09:36)
PROC: 30233N1 Transfusion of Nonautologous Red Blood Cells into Peripheral Vein, Percutaneous Approach (ICD-10-PCS; 2018-04-20)
PROC: B246ZZ4 Ultrasonography of Right and Left Heart, Transesophageal (ICD-10-PCS; 2018-04-21)
DX: I08.0 Rheumatic disorders of both mitral and aortic valves (principal); I25.10 Atherosclerotic heart disease of native coronary artery without angina pectoris; D62 Acute posthemorrhagic anemia; I95.81 Postprocedural hypotension; E87.1 Hypo-osmolality and hyponatremia; D69.6 Thrombocytopenia, unspecified; K59.00 Constipation, unspecified; I11.0 Hypertensive heart disease with heart failure; I50.9 Heart failure, unspecified; I48.0 Paroxysmal atrial fibrillation; G62.9 Polyneuropathy, unspecified; E78.5 Hyperlipidemia, unspecified; Z85.51 Personal history of malignant neoplasm of bladder; Z96.653 Presence of artificial knee joint, bilateral; Z79.01 Long term (current) use of anticoagulants; N40.0 Benign prostatic hyperplasia without lower urinary tract symptoms
CPT/HCPCS: 82435-PO; 82565-PO; 82947-PO; 83605-PO; 84132-PO; 84295-PO; 84520-PO; 85014-PO; 97110-GP; 97116-GP; 97162-GP; 97166-GO; 97530-GO; 97530-GP; 97535-GO; G8978-GP-CI; G8979-GP-CI; G8987-GO-CL; G8988-GO-CJ; J0153; J0282; J0690; J1250; J1265; J1644; J1815; J1940; J2001; J2150; J2250; J2260; J2270; J2370; J2405; J2440; J2704; J2720; J2765; J2930; J3010; J3475; P9016; P9041

== ENCOUNTER → 2018-05-05 | Outpatient (CLI) | payer OTHER | LOC: FIMAGING 09:07 | PROVIDERS: ATTEND Thoracic Surgery (Cardiothoracic Vascular Surgery) | DX: I51.7 Cardiomegaly (principal); Z95.1 Presence of aortocoronary bypass graft; Z95.2 Presence of prosthetic heart valve; Z98.890 Other specified postprocedural states ==

== ENCOUNTER 2018-05-19 13:39 | Inpatient (IN) | payer OTHER ==
[2018-05-19] MEDS ORDERED: ATROPINE SULFATE 1 MG/10 ML SYR IVP ONE (13:52)
[2018-05-19] MEDS ORDERED: MIDAZOLAM 2 MG/2 ML VIAL IVP ONE (13:52)
[2018-05-19] MEDS ORDERED: NS 500 ML IV ONE (13:52)
[2018-05-19] MEDS ORDERED: BENZOCAINE UNIT DOSE SPRAY HURRICAINE MM ONE (13:52)
[2018-05-19] MEDS ORDERED: fentaNYL 100 MCG/2 ML INJ IVP ONE (13:52)
--- NOTE | 2018-05-19 14:08 | PDANEPAE ---
ANE History of Present Illness a fib ANE Past Medical History - Cardiovascular History Hx Hypertension: Yes Hx Arrhythmias: Yes Hx Chest Pain: No Hx Coronary Artery / Peripheral Vascular Disease: Yes Hx CHF / Valvular Disease: No Hx Palpitations: No Cardiovascular History Comment: HTN. rapid AFIB. hospitalized at [facility] 02/25- for syncopal episode. hyperlipidemia. CAD. PVD hx of CEA. aortic stenosis. mitral regurg. CHF. followed by [facility] - Pulmonary History Hx COPD: No Hx Asthma/Reactive Airway Disease: No Hx Recent Upper Respiratory Infection: No Hx Oxygen in Use at Home: No Hx Sleep Apnea: No Pulmonary History Comment: alo triggers - Neurologic History Hx Cerebrovascular Accident: No Hx Seizures: No Hx Dementia: No Neurologic History Comment: peripheral polyneuropathy - Endocrine History Hx Diabetes: No Hypothyroid: No Hyperthyroid: No Obesity: no - Renal History Hx Renal Disorders: Yes Renal History Comment: BPH. hx of kidney stones with removal. hx of bladder CA - Liver History Hx Hepatic Disorders: No - Neurological & Psychiatric Hx Hx Neurological and Psychiatric Disorders: No - Cancer History Hx Cancer: Yes Cancer History Comment: bladder ca - Congenital Disorder History Hx Congenital Disorders: No - GI History GERD: no Hx Gastrointestinal Disorders: No - Other Health History Other Health History: wears glasses for reading. bilateral hearing aides. full set of dentures - Chronic Pain History Chronic Pain: No - Surgical History Prior Surgeries: 04/06/18 heart cath with James. 02/24/18 MIN/ CV with Ramirez. bilateral TKA's. bilateral cataracts. tonsillectomy. kidney stone removed ANE Review of Systems Review of systems is: negative Review of Systems: - Exercise capacity Exercise capacity: <4 METS ANE Patient History - Allergies Allergies/Adverse Reactions: Penicillins Allergy (Verified 04/14/18 11:41) itching and hand swelling - Home Medications Home medications: home medication list seen and reviewed Home Medications: Cholecalciferol Vit D3 [Vitamin D3 (*)] 2,000 units PO DAILY 02/24/18 [Last Taken 04/16/18] Simvastatin [Zocor] 40 mg PO HS 02/24/18 [Last Taken 04/16/18] Tamsulosin HCl [Flomax 0.4 MG (*)] 0.4 mg PO HS 02/24/18 [Last Taken 04/16/18] Cyanocobalamin [Vitamin B12 (*)] 1,000 mcg PO DAILY 04/01/18 [Last Taken ] Aspirin EC [Aspirin EC 81 mg (*)] 81 mg PO HS 04/12/18 [Last Taken 04/16/18] - NPO status NPO Status: no food or drink >8 hours - Anes Hx Anes Hx: no prior problems - Smoking Hx Smoking Status: Former smoker Marijuana use: No - Alcohol Use Alcohol Use: None - Family Anes Hx Family Anes Hx: none Family Hx Anesthesia Complications: none ANE Physical Exam - Airway Neck exam: FROM Mallampati Score: Class 2 Mouth exam: normal dental/mouth exam - Pulmonary Pulmonary: no respiratory distress, clear to auscultation - Cardiovascular Cardiovascular: regular rate and rhythym, no murmur, rub, or gallop - ASA Status ASA Status: III, IV ANE Anesthesia Plan Anesthesia Plan: GA with mask Total IV Anesthesia: Yes
[2018-05-19] MEDS ORDERED: PROPOFOL/EMULSION 500 MG/50 ML BOTTLE IV ONE (14:13)
[2018-05-19 14:58] LABS: INR 2.6 (0.83-1.16); PROTIME(PATIENT) 27.8 SEC (12.0-15.0)
[2018-05-19] MEDS ORDERED: EPINEPHrine 1 MG/10 ML SYR IVP ONE (15:10)
[2018-05-19] MEDS ORDERED: NALOXONE HCL 0.4 MG/ML INJ IVP PRN (15:53)
--- NOTE | 2018-05-19 16:00 | PDTEE1 ---
MIN Cardioversion Procedure Procedure: electrical cardioversion, transesophageal echo Indications: other (AF and atrial flutter) Consent: signed and in chart Anticoagulation: warfarin Procedural Details: Pads were placed in anterior-posterior position. MIN probe was advanced and standard images obtained. There is no evidence of left atrial or left atrial appendage thrombus. Synchronized cardioversion attempt #1: 200J Results: normal sinus rhythm Conclusions: successful MIN cardioversion Patient Problems: Problems Problem Status Onset Acute blood loss anemia Acute New onset atrial fibrillation Acute S/P AVR (aortic valve replacement) Acute S/P CABG x 3 Acute S/P MVR (mitral valve repair) Acute S/P left atrial appendage ligation Acute Status post circumferential ablation of pulmonary vein Acute Syncope Acute
--- NOTE | 2018-05-19 16:10 | ECHO ---
[email or web address] [address] [address] Main: [phone] Fax: Transesophageal Echocardiography Name: SARAH MCCLOUD MR#: [id number] Study Date: 05/19/2018 Study Time: 02:42 PM Date of : 1940 Age: 77 year(s) Height: ( ) Weight: ( ) BSA: Gender: Male Examination: MIN Indication: Evaluate ANGE Pre Cardioversion Image Quality: Adequate Contrast: Requested by: Cathy Ramirez Heart Rate: Rhythm: BP: / Procedure Staff Applied Statistician: Manuela Mcintyre NATALIA Reading Physician: Cathy Ramirez MD Requesting Provider: MIN Exam Details Patient Consent: Risks, alternatives of procedure explained to patient, informed consent obtained. Conclusions: The ejection fraction is visually estimated to be 30 %. An agitated saline study was performed and was negative for intracardiac shunting. The left atrial appendage is sewn over. The mitral valve has been repaired. There was residual ocwo-gj-qrblitpc mitral regurgitation.. The aortic valve is a bioprosthesis. Normal functioning aortic valve prosthesis. No prosthesis regurgitation. Mild tricuspid regurgitation is present. Plaque seen in descending aorta. Proceed with cardioversion Measurements: Chambers Valvular Assessment AV/MV Valvular Assessment TV/PV Normal Normal Normal Name Value Range Name Value Range Name Value Range Visual EF: 30 % Additional Measurements: Findings: Left Ventricle: Normal size left ventricle. The ejection fraction is visually estimated to be 30 %. Patient: SARAH MCCLOUD Study Date: 05/19/2018 Page 1 of 2 02:42 PM Right Ventricle: Normal size right ventricle. Left Atrium: An agitated saline study was performed and was negative for intracardiac shunting. Left Atrial Appendage: The left atrial appendage is sewn over. Right Atrium: There is a prominent chiari network visualized. Mitral Valve: The mitral valve has been repaired. There was residual isjc-yq-ubnoydlo mitral regurgitation.. Aortic Valve: The aortic valve is a bioprosthesis. Normal functioning aortic valve prosthesis. The prosthetic aortic valve is normal. The orifice motion of the prosthetic aortic valve is normal. No prosthesis regurgitation. Tricuspid Valve: The tricuspid valve is normal in appearance and function. Mild tricuspid regurgitation is present. Pulmonic Valve: The pulmonic valve is normal in appearance and function. Aorta: Plaque seen in descending aorta. l1n (No Signature Object) Patient: SARAH MCCLOUD Study Date: 05/19/2018 Page 2 of 2 02:42 PM [id number]
--- NOTE | 2018-05-19 16:34 | GHP ---
DATE OF ADMISSION: 05/19/2018 CHIEF COMPLAINT: Heart failure. HISTORY OF PRESENT ILLNESS: The patient is a very pleasant 77-year-old male known to me from both [facility] inpatient and outpatient setting. He has a history of coronary disease and valvular heart disease. He also has atrial arrhythmia and a history of CA. In April of this year, he had CABG (VILLAR to the LAD, SVG to OM, SVG to the RCA); a #23 Orr bio prosthetic aortic valve replacement and mitral valve repair. He also had bilateral pulmonary vein is olation and left atrial appendage ligation. His postoperative course was prolonged notable for atrial fibrillation, anemia. He went to rehab and now is staying back at home with his daughter, Ofelia. He was seen by me in the clinic yesterday with weight gain, lower extremity edema, breathlessness. H e was found to be in likely atrial flutter with 2:1 ventricular response. We scheduled MIN cardiover frank for today. Today, he underwent a successful MIN-guided cardioversion. Please see separate report. In summary, his LV systolic function has decreased to approximately 30%, likely related to his atrial arrhythmia and rapid ventricular response. Bioprosthetic aortic valve is functioning normally. Dafz-dl-uwqbvxj e residual mitral regurgitation. He is currently in sinus rhythm after the cardioversion. Also, his creatinine was 1.8 today, up from 1.1 at the end of April. He is, therefore, being admitted for observation of an arrhythmia and heart failure management in the setting of worsening renal function. REVIEW OF SYSTEMS: A full 10-point systems was performed and is negative, except that which is outli melissa above. ALLERGIES: Penicillin. PAST MEDICAL HISTORY: 1. Coronary disease status post CABG. 2. Valvular heart disease, status post AVR and mitral valve repair. 3. Carotid artery disease, history of CEA. 4. Atrial fibrillation and atrial flutter. 5. Dyslipidemia. 6. BPH. 7. Systemic hypertension. 8. Peripheral polyneuropathy. 9. Dyslipidemia. SURGICAL HISTORY: Aortic valve replacement, CABG, history of urological surgery. OUTPATIENT MEDICATIONS: Amiodarone 200 mg daily, aspirin 81 mg daily, atorvastatin 20 mg daily, lianna min D3, Coumadin for INR goal of 2 to 3, vitamin B12, furosemide 80 mg b.i.d. He did receive a singl e dose of metolazone 5 mg yesterday afternoon, but this has not been a chronic medication for him. M etoprolol tartrate (should be succinate) 75 mg, potassium chloride 40 mEq b.i.d., tamsulosin 0.4 mg d aily. SOCIAL HISTORY: The patient does not drink alcohol. He is a past smoker but currently does not smok e. He lives with his daughter, Ofelia. FAMILY HISTORY: Not applicable to the current case. PHYSICAL EXAM: VITAL SIGNS: Blood pressure 95/50, heart rate 65 post cardioversion, oxygen saturati on 90% on facemask. GENERAL: Chronically ill-appearing, older male in no acute distress. HEENT: E dentulous. Mucous membranes are moist. Normocephalic, atraumatic. CARDIOVASCULAR: JVP is approxim ately 12 to 14 cm of water. Initial cardiac exam showed a tachycardic rhythm with a soft early systo lic ejection murmur at the base. LUNGS: Clear to auscultation without wheeze, rhonchi, or rales. E XTREMITIES: 2+ pitting edema to the midshin bilaterally. NEURO: Alert and oriented x3 without scottie s focal neurologic deficits. Appropriate mood and affect. LABORATORY DATA: White count 4.8, hematocrit 36.8, and platelets are 321. INR 2.6. Sodium 142, pot assium 3.7, chloride 99, bicarb 33, BUN 49, creatinine 1.8 up from 1.1 on May 05. Magnesium 2.3 . EKG prior to cardioversion shows likely atrial flutter with 2:1 block versus atrial tachycardia, nons pecific interventricular conduction delay. Post cardioversion EKG shows sinus rhythm. Nonspecific i ntraventricular conduction delay. No evidence of ischemia. MIN as detailed above. ASSESSMENT AND PLAN: A 77-year-old male with recent cardiac surgery, now requiring readmission for r hythm control and heart failure management in the setting of worsening renal function. 1. Systolic heart failure: Ejection fraction 30%. His ejection fraction post cardiac surgery a tue ago was 60%. 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 Would switch to metoprolol succinate. I would hold o n initiating DOMENICA inhibitor for now given his renal dysfunction. Hold diuretics for this evening and re-evaluate renal function and volume status in the morning. He does still appear volume overloaded. 2. Acute kidney injury: His baseline creatinine is about 1. I suspect that his creatinine of 1.8 i s related to attempts at aggressive diuresis and decline in ejection fraction with poor forward flow. Hopefully, this will improve with withholding diuretics and improved cardiac efficiency. His other electrolytes are normal. We will check basic metabolic panel in the morning as well. Avoid nephrot oxins. 3. Valvular heart disease: Normally functioning bioprosthetic aortic valve regurgitation. Residual bvva-og-nlngbozl mitral regurgitation. 4. Peripheral vascular disease with history of CEA. Continue statin. 5. Atrial arrhythmias: Currently in sinus rhythm. Continue warfarin for his history of atrial fibr illation and atrial flutter. Anticipate the patient will require at least 1 midnight for surveillance of renal function and re-ini tiation of diuresis. Code status is full. VT prophylaxis is warfarin. /[id number]/MODL
[2018-05-19] MEDS: TAMSULOSIN HCL 0.4 MG CAP PO SCH (20:58)
[2018-05-19] MEDS: ASPIRIN EC 81 MG TAB PO SCH (20:58)
[2018-05-20 05:04] LABS: INR 2.8 (0.83-1.16); PROTIME(PATIENT) 29.4 SEC (12.0-15.0)
[2018-05-20] MEDS ORDERED: PROTOCOL POTASSIUM 1 DOSE MISC PRN (08:02)
[2018-05-20] MEDS ORDERED: POTASSIUM CL 20 MEQ TAB PO ONE (08:46)
[2018-05-20] MEDS: CHOLECALCIFEROL VIT D3 2,000 UNITS TAB/CAP PO SCH (08:55)
[2018-05-20] MEDS: ATORVASTATIN CALCIUM 20 MG TAB PO SCH (08:55)
[2018-05-20] MEDS: METOPROLOL SUCCINATE XR 25 MG TAB PO SCH (08:56)
[2018-05-20] MEDS: CYANO/VITAMIN B12 1000 MCG TAB PO SCH (08:57)
[2018-05-20] MEDS ORDERED: AMIODARONE HCL 200 MG TAB PO SCH (09:00)
[2018-05-20] MEDS ORDERED: FUROSEMIDE 20 MG TAB PO ONE (09:01)
--- NOTE | 2018-05-20 09:18 | PDCARPN ---
Cardiology Progress Note Chief Complaint: Atrial flutter s/p [facility] 05/19 CHF Assessment/Plan: Assessment: 1. Atrial fibrillation and atrial flutter: Atrial flutter s/p with 2:1 conduction s/p cardioversion yesterday 05/19. He has maintained NSR overnight. Antiarrhythmic therapy with Amiodarone 100mg daily. He continue Toprol 25mg daily and is anticoagulated with Coumadin 2. Systolic CHF: LVEF 30% by MIN yesterday, likely related to atrial flutter. Will repeat echo tomorrow morning 05/21. BLE pitting edema, patient reports that this is slowly improving. ACEi on hold second to Cr 1.8. Lasix IV 20mg x1 today for diuresis, repeat labs tomorrow AM 3. BioAVR: Normal valve function by MIN yesterday 4. Hypokalemia: Potassium 40mEq administered this AM. Will continue to follow with repeat BMP tomorrow AM 5. KENYATTA: Cr 1.8 on admission, stable this AM. Cr was 1.1 in April, will continue to follow. Plan: 1. Lasix IV 20mg this morning 2. Echo tomorrow AM to evaluate systolic function 3. EP will continue to follow. We may need to consider atrial flutter ablation in the future 05/20/18 10:38 Subjective: He is feeling much better today with improved dyspnea and overall level of energy. No chest discomfort, orthopnea, palpitations, lightheadedness, or pre- syncope. He does endorse a wet cough overnight Reviewed/Discussed With: multidisciplinary team Time Spent with Patient: greater than 25 minutes Time Spent with Patient: Greater than 25 minutes spent on this patients care, greater than 50% of time spent counseling, educating, and coordinating care regarding the above mentioned plan. Objective: Vital Signs (8 Hrs) Temp Pulse Resp BP Pulse Ox 05/20/18 07:44 36.6 C 69 18 122/62 H 92 05/20/18 05:36 36.6 C 70 12 113/55 L 91 L Intake/Output (24 Hrs) 05/19/18 05/20/18 05/21/18 05:59 05:59 05:59 Intake Total 1050 Balance 1050 Intake: Oral (ml) 800 IV Intake (ml) 250 Other: Weight 98.6 kg Number of Voids Toilet 1 Result Diagrams: 05/19/18 14:45 05/20/18 04:20 Telemetry: NSR overnight - Physical Exam Constitutional: WDWN, healthy appearing, no apparent distress Ears, Nose, Mouth, Throat: no oral ulcers, dry mucous membranes Cardiovascular: regular rate and rhythm, no rubs, no gallops, systolic murmur, other (BLE 2+ pitting edema) Respiratory: reduced air movement, other (coarse rhonchi) Gastrointestinal: normoactive bowel sounds, no tenderness, no masses Skin: no rashes, no abrasions, no ulcers, warm Neurologic: AAOx3, CN II-XII grossly intact Psychiatric: cooperative, interactive, following commands, not anxious ICD10 Worksheet Patient Problems: Problems Problem Status Onset Acute blood loss anemia Acute New onset atrial fibrillation Acute S/P AVR (aortic valve replacement) Acute S/P CABG x 3 Acute S/P MVR (mitral valve repair) Acute S/P left atrial appendage ligation Acute Status post circumferential ablation of pulmonary vein Acute Syncope Acute
[2018-05-20] MEDS ORDERED: FUROSEMIDE 20 MG/2 ML VIAL IVP ONE ×2 (09:54)
[2018-05-20] MEDS ORDERED: LACTULOSE 20 GM/30 ML UDCUP PO PRN (09:55)
[2018-05-20] MEDS ORDERED: MAGNESIUM HYDROXIDE 30 ML UDCUP PO PRN (09:55)
[2018-05-20] MEDS ORDERED: BISACODYL 10 MG SUPP PR PRN (09:55)
[2018-05-20] MEDS ORDERED: POLYETHYLENE GLYCOL 3350 17 GM PKT PO PRN (09:55)
--- NOTE | 2018-05-20 10:16 | PDCARPN ---
Cardiology Progress Note Chief Complaint: SCHF/ICM/ Afl with tachy-mediated myopathy/KENYATTA Assessment/Plan: Assessment: 77M PMH recent CABG/bioAVR, SCHF with subsequent normalization of EF, PAF, carotid disease s/p CEA, htn, seen in clinic this week for weight gain, dyspnea , BIENVENIDO, and found to be in new onset Afl with 2:1 conduction. #. Afl: s/p MIN-guided DCCV 05/19 and appears to be maintaining SR continue Warfarin transitioned to Metoprolol succinate #. SCHF: new decrement in EF from 60% post-surgery last month to 30% likely tachy-mediated EP also following holding ACEi due to KENYATTA still appears volume overloaded with BIENVENIDO, decreased BS, abdominal distention , hypoxia #. KENYATTA: new problem had a one-time dose of Metolazone prior to admission follow labs lower dose Lasix given today follow labs closely #. hypokalemia: on repletion protocol #. CAD: s/p CABG continue ASA and statin #. bronchitis: will avoid Albuterol start Mucinex and IS #. : s/p aVR MIN shows normal functioning prosthesis #. DVT ppx: continue Warfarin and early ambulation #. LOS: inpt due to ongoing KENYATTA and SCHF Plan: - Transition to inpt due to ongoing KENYATTA and SCHF - K+ repletion - one time IV lasix today - bowel protocol 05/20/18 10:07 Subjective: Feels better than yesterday. Has not ambulated. Productive cough but no F. Ongoing BIENVENIDO. Objective: Vital Signs (8 Hrs) Temp Pulse Resp BP Pulse Ox 05/20/18 07:44 97.8 F 69 18 122/62 H 92 05/20/18 05:36 97.9 F 70 12 113/55 L 91 L Intake/Output (24 Hrs) 05/19/18 05/20/18 05/21/18 05:59 05:59 05:59 Intake Total 1050 Balance 1050 Intake: Oral (ml) 800 IV Intake (ml) 250 Other: Weight 98.6 kg Number of Voids Toilet 1 Result Diagrams: 05/19/18 14:45 05/20/18 04:20 Telemetry: reviewed- SR on tele - Physical Exam Constitutional: healthy appearing Eyes: PERRL Cardiovascular: regular rate and rhythm, systolic murmur Respiratory: reduced air movement, bronchial breath sounds, other (rhonchi in bases) Gastrointestinal: normoactive bowel sounds, other (distended) Skin: no rashes, other (2+ BIENVENIDO) Neurologic: AAOx3 Psychiatric: cooperative, interactive ICD10 Worksheet Patient Problems: Problems Problem Status Onset Acute blood loss anemia Acute New onset atrial fibrillation Acute S/P AVR (aortic valve replacement) Acute S/P CABG x 3 Acute S/P MVR (mitral valve repair) Acute S/P left atrial appendage ligation Acute Status post circumferential ablation of pulmonary vein Acute Syncope Acute
--- NOTE | 2018-05-20 10:54 | ASMTCMCOM ---
CM Note CM Note Notes: Chart reviewed. Patient admitted for obs for a flutter, CHF in setting of KENYATTA. Significant history for CABG, AVR. CEA. Lives with daughter Ofelia per chart information. CM to follow for needs. Plan: TBD Date Signed: 05/20/2018 10:53 AM Electronically Signed By:Cassidy Bailon RN
[2018-05-20] MEDS: guaiFENesin 600 MG TAB.ER PO SCH ×2 (12:02→21:36)
[2018-05-20] MEDS ORDERED: WARFARIN SODIUM 3 MG TAB PO SCH (16:00)
--- NOTE | 2018-05-20 20:18 | PDMN ---
Medical Necessity Medical necessity: MCG: M575 ventricular arrhythmias: 77 yr old with recent CABG now with Aflutter with tachy-mediated myopathy. MIN- presently in SR. , pt with HTN, wt gain, dyspnea, BIENVENIDO, SCHF- EF from 60% post sgy to 30% now. also with KENYATTA, hypokalemia, status changed to INPT 05/20/18 for ongoing med nec. further monitoring, eval and tx of above > 2 MN.
[2018-05-20] MEDS: ASPIRIN EC 81 MG TAB PO SCH (21:36)
[2018-05-20] MEDS: TAMSULOSIN HCL 0.4 MG CAP PO SCH (21:36)
[2018-05-20] MEDS: SENNOSIDES/DOCUSATE SODIUM TAB PO SCH (21:36)
[2018-05-21 05:12] LABS: INR 3.49 (0.83-1.16); PROTIME(PATIENT) 34.8 SEC (12.0-15.0)
[2018-05-21] MEDS ORDERED: POTASSIUM CL 10 MEQ TAB PO ONE (08:16)
[2018-05-21] MEDS: CHOLECALCIFEROL VIT D3 2,000 UNITS TAB/CAP PO SCH (08:33)
[2018-05-21] MEDS: AMIODARONE HCL 200 MG TAB PO SCH (08:33)
[2018-05-21] MEDS: guaiFENesin 600 MG TAB.ER PO SCH ×2 (08:34→20:17)
[2018-05-21] MEDS: METOPROLOL SUCCINATE XR 25 MG TAB PO SCH (08:35)
[2018-05-21] MEDS: ATORVASTATIN CALCIUM 20 MG TAB PO SCH (08:35)
[2018-05-21] MEDS: SENNOSIDES/DOCUSATE SODIUM TAB PO SCH ×2 (08:35→20:17)
[2018-05-21] MEDS: CYANO/VITAMIN B12 1000 MCG TAB PO SCH (08:35)
--- NOTE | 2018-05-21 09:25 | PDCARPN ---
Cardiology Progress Note Chief Complaint: CHF Atrial flutter Bronchitis Assessment/Plan: Assessment: 1. Atrial fibrillation and atrial flutter: Atrial flutter s/p with 2:1 conduction s/p cardioversion 05/19. He has maintained NSR throughout this hospitalization. Antiarrhythmic therapy with Amiodarone 100mg daily and Toprol 25mg daily. He is anticoagulated with Coumadin 2. Systolic CHF: LVEF 30% by MIN 05/19, will repeat echo this morning to reevaluate LVEF in NSR. BLE pitting edema slightly improved compared to yesterday, patient reports that this is slowly improving. Lasix IV 40mg x1 yesterday, Cr trended down (1.5 today), ACEi on hold. Will continue diuresing today with Lasix IV 40mg x1, repeat labs tomorrow AM 3. BioAVR: Normal valve function by MIN 05/19 4. Hypokalemia: Potassium 30mEq administered this AM. Will continue to follow with repeat BMP tomorrow AM 5. KENYATTA: Cr 1.8 on admission, slowly trending down (1.5 today). Cr was 1.1 in April, will continue to follow. Plan: 1. Lasix IV 40mg this morning 2. Echo this morning to evaluate systolic function 3. Laboratory studies tomorrow morning including BMP and BNP. 4. Follow-up with EP 4-6 weeks after discharge, sooner for recurrent AFlutter. We may need to consider atrial flutter ablation in the future 05/21/18 09:54 Subjective: Patient reports feeling fairly well this morning with more energy compared to yesterday. He has been able to ambulate around the unit using supplemental 02. He continues to use IS several times per day but continues to experience a deep , productive cough. He is eager to go home. Objective: Vital Signs (8 Hrs) Temp Pulse Resp BP Pulse Ox 05/21/18 08:00 36.6 C 75 18 123/62 H 92 05/21/18 04:00 36.5 C 73 20 118/61 93 Intake/Output (24 Hrs) 05/20/18 05/21/18 05/22/18 05:59 05:59 05:59 Intake Total 1050 700 Output Total 1800 275 Balance 1050 -1100 -275 Intake: Oral (ml) 800 700 IV Intake (ml) 250 Output: Urine (ml) 1800 275 Toilet 700 Urinal 1100 275 Other: Weight 98.6 kg 98.2 kg Intake Quantity Yes Sufficient Number of Voids Toilet 1 2 Urinal 1 Result Diagrams: 05/19/18 14:45 05/21/18 04:10 Telemetry: NSR overnight - Physical Exam Constitutional: WDWN, healthy appearing, no apparent distress Ears, Nose, Mouth, Throat: moist mucous membranes, no oral ulcers, no thrush Cardiovascular: regular rate and rhythm, no rubs, no gallops, systolic murmur, other (2+ BLE pitting edema) Respiratory: reduced air movement, inspiratory crackles, other (rhonchi) Skin: no rashes, no abrasions, no ulcers, warm Neurologic: AAOx3, CN II-XII grossly intact Psychiatric: cooperative, interactive, following commands, not anxious ICD10 Worksheet Patient Problems: Problems Problem Status Onset Acute blood loss anemia Acute New onset atrial fibrillation Acute S/P AVR (aortic valve replacement) Acute S/P CABG x 3 Acute S/P MVR (mitral valve repair) Acute S/P left atrial appendage ligation Acute Status post circumferential ablation of pulmonary vein Acute Syncope Acute
[2018-05-21] MEDS ORDERED: FUROSEMIDE 40 MG/4 ML VIAL IVP ONE (09:52)
[2018-05-21] MEDS: ALBUTEROL 3 ML DEYVIAL IH SCH ×3 (12:30→21:13)
--- NOTE | 2018-05-21 14:35 | CPEKG ---
Test Reason : OPEN Blood Pressure : / mmHG Vent. Rate : 134 BPM Atrial Rate : 136 BPM P-R Int : 065 ms QRS Dur : 135 ms QT Int : 352 ms P-R-T Axes : 000 -35 150 degrees QTc Int : 526 ms Sinus tachycardia LVH with secondary repolarization abnormality Anterior ST elevation, probably due to LVH Prolonged QT interval Confirmed by Pj Osorio ([id number]) on 05/21/2018 2:35:13 PM Referred By: Confirmed By:Pj Osorio
--- NOTE | 2018-05-21 14:36 | CPEKG ---
Test Reason : OPEN Blood Pressure : / mmHG Vent. Rate : 075 BPM Atrial Rate : 075 BPM P-R Int : 219 ms QRS Dur : 137 ms QT Int : 429 ms P-R-T Axes : 084 -33 119 degrees QTc Int : 480 ms Sinus rhythm First degree AV block Left atrial enlargement Left bundle branch block Confirmed by Pj Osorio ([id number]) on 05/21/2018 2:35:58 PM Referred By: Confirmed By:Pj Osorio
--- NOTE | 2018-05-21 15:31 | ECHO ---
[email or web address] [address] Main: [phone] Fax: Transthoracic Echocardiogram Name: SARAH MCCLOUD MR#: [id number] Study Date: 05/21/2018 Study Time: 11:51 AM Date of : 1940 Age: 77 year(s) Height: 182.9 cm (72 in.) Weight: 98.43 kg (217 lb.) BSA: 2.21 m2 Gender: Male Examination: Echo Indication: systolic dysfunction, atrial flutter; H/O mitral valve repair, AVR and CABG Image Quality: Adequate Contrast: Requested by: Monalisa Nunez BP: 123 mmHg/62 mmHg Heart Rate: Rhythm: Indication: systolic dysfunction, atrial flutter; H/O mitral valve repair, AVR and CABG Procedure Staff Human Intelligence: Digna Hunter [facility] Reading Physician: Pj Osorio MD Requesting Provider: Conclusions: 1)Normal LV size and systolic function with a LVEF of 55%. 2)Moderate concentric LVH noted. 3)Severe left atrial and moderate right atrial enlargement(s) noted. 4)Normal functioning bioprosthetic AVR with normal gradients and no AI noted. 5)Mitral valve s/p annular ring with severe MS (mean gradient 12mmHg) and probably eccentic, moderate MR. 6)Mild TR with estimated PAS = 53mmHg consistent with moderate pulmonary HTN. 7)Small pericardial effusion with no tamponade signs. 8)Large, fibrinous pleural effusion noted. Measurements: Chambers Valvular Assessment AV/MV Valvular Assessment TV/PV Normal Normal Normal Name Value Range Name Value Range Name Value Range Ao Maggi (MM): 3.6 cm (2.2 cm-3.7 AV Vmax: 2.08 m/s (1 m/s-1.7 TR Vmax: 3.07 mm/s ( - ) cm) m/s) TR PGmax: 38 mmHg ( - ) IVSd (2D): 1.6 cm (0.6 cm-1.1 AV maxP mmHg ( - ) syst. PAP: 53 mmHg ( - ) cm) AV meanP mmHg ( - ) PV Vmax: 1.11 m/s (0.6 m/s-0.9 LVDd (2D): 4.7 cm (4.2 cm-5.9 MV meanP mmHg ( - ) m/s) cm) MV PHT: 0.142 s ( - ) PV PGmax: 5 mmHg ( - ) LVDs (2D): 3.5 cm (2.1 cm-4 MVA (PHT): 1.5 s ( - ) cm) LVPWd (2D): 1.2 cm (0.6 cm-1 cm) LVEF (BP): 55 % (>=55 %) RVDd(2D): 3.9 cm (1.9 cm-3.8 cmmm) Continued Measurements: Patient: SARAH MCCLOUD Study Date: 05/21/2018 Page 1 of 2 11:51 AM Chambers Valvular Assessment AV/MV Valvular Assessment TV/PV Name Value Name Value Name Value LADs Lon.1 cm MV VTI: 73.40 cm CVP (est.): 15 mmHg LA Area: 37.2 cm2 LA Volume: 147 ml LA Volume Index: 66.5 ml/m2 TAPSE: 1.8 cm RA Area: 19.8 cm2 Additional Vessels Name Value Ao Ascendin.8 cm Findings: Left Ventricle: Normal size left ventricle. Moderate concentric LV hypertrophy. Normal global systolic LV function. EF is 55 %. Mild distal anteroseptal hypokinesis. Diastolic dysfunction cannot be assessed due to heavy MAC and mitral valve repair. Right Ventricle: Upper normal size right ventricle. Normal RV function. Left Atrium: The left atrium is severely dilated. Right Atrium: The right atrium is moderately dilated. Mitral Valve: S/P mitral valve repair. Leaflets not well visualized due to heavy mitral annular calcification. At least moderate eccentric mitral regurgitation. Mean gradient across the repaired MV is 12mmHg which is consistent with severe mitral stenosis. Aortic Valve: The aortic valve is a bioprosthesis. Normal functioning aortic valve prosthesis. The prosthetic aortic valve is normal. The orifice motion of the prosthetic aortic valve is normal. No prosthesis stenosis. No prosthesis regurgitation. Tricuspid Valve: The tricuspid valve is normal in appearance and function. Mild tricuspid regurgitation is present. Right ventricular systolic pressure measures 53mmHg. The pulmonary artery pressure is moderately increased. Pulmonic Valve: Pulmonary valve not well visualized. Mild pulmonic valve regurgitation is noted. Aorta: Normal size aortic root measuring 3.6 cm. Normal size ascending aorta measuring 2.8 cm. IVC: The IVC is dilated. There is less than 50% respiratory excursion. Pericardium: Small pericardial effusion. There is a pleural effusion. (No Signature Object) Patient: SARAH MCCLOUD Study Date: 05/21/2018 Page 2 of 2 11:51 AM [id number]
[2018-05-21] MEDS: TAMSULOSIN HCL 0.4 MG CAP PO SCH (20:17)
[2018-05-21] MEDS: ASPIRIN EC 81 MG TAB PO SCH (20:17)
[2018-05-22 04:32] LABS: PLATELET COUNT 279 10^3/uL (150-400)
[2018-05-22 04:40] LABS: INR 3.39 (0.83-1.16)
[2018-05-22] MEDS: ALBUTEROL 3 ML DEYVIAL IH SCH ×4 (05:43→20:53)
[2018-05-22] MEDS ORDERED: POTASSIUM CL 10 MEQ TAB PO ONE ×3 (06:25→21:29)
[2018-05-22] MEDS ORDERED: POTASSIUM CL 20 MEQ/15 ML UDCUP PO ONE (07:45)
--- NOTE | 2018-05-22 09:47 | ASMTCMCOM ---
CM Note CM Note Notes: 06/01/2018 Case Management Note Discussed w/Cathy Ramirez. Anticipating d/c tomorrow. PT eval indicates pt should return home without services. Pt daughter present. Case Management d/c poc: return home with daughter with follow up as directed. Case Management available if needs change. Date Signed: 05/22/2018 09:46 AM Electronically Signed By:Cheli Desai RN
[2018-05-22] MEDS: CHOLECALCIFEROL VIT D3 2,000 UNITS TAB/CAP PO SCH (09:53)
[2018-05-22] MEDS: METOPROLOL SUCCINATE XR 25 MG TAB PO SCH (09:53)
[2018-05-22] MEDS: CYANO/VITAMIN B12 1000 MCG TAB PO SCH (09:53)
[2018-05-22] MEDS: ATORVASTATIN CALCIUM 20 MG TAB PO SCH (09:53)
[2018-05-22] MEDS: SENNOSIDES/DOCUSATE SODIUM TAB PO SCH ×2 (09:53→21:27)
[2018-05-22] MEDS: guaiFENesin 600 MG TAB.ER PO SCH ×2 (09:53→21:27)
[2018-05-22] MEDS: AMIODARONE HCL 200 MG TAB PO SCH (09:53)
--- NOTE | 2018-05-22 10:10 | PDCARPN ---
Cardiology Progress Note Assessment/Plan: Assessment/plan: 77-year-old male with history of bioprosthetic AVR, mitral valve repair (not able to be replaced due to extensive mitral annular calcification), CABG, left atrial appendage ligation, bilateral pulmonary vein isolation on April 17. Postoperative course was complicated by atrial fibrillation requiring high-dose metoprolol and amiodarone. He was readmitted after MIN guided cardioversion on May 19 with acute on chronic systolic heart failure and acute renal failure. Over the past 3 days he has diuresed from 103 kg to 98.4 kg and feels much better. He has maintained sinus rhythm. 1. Acute systolic heart failure: Ejection fraction on MIN on May 19 was 30%. This has actually already improved to 50% on May 21 transthoracic echo. This was related to atrial flutter with rapid ventricular response. He is tolerating low-dose Toprol. We will consider up titration of this medication and addition of Rd inhibitor as an outpatient, once his renal function improves to be stable. Transition to oral Lasix today. 2. Atrial fibrillation, atrial flutter, ventricular tachycardia. Currently in sinus rhythm. He did have a short run of VT. Ejection fraction is fairly normal and he is revascularized. Replete electrolytes. Continue amiodarone 100 mg daily for several more weeks. Has been seen by EP. Could consider atrial flutter ablation for recurrent episode. Continue warfarin long-term. Warfarin held today for supratherapeutic INR. 3. Acute renal failure: Creatinine was 1.8 upon admission, now 1.1. 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 Follow closely. 4. Recent AVR, mitral valve repair and CABG: He is left with residual mild-to- moderate mitral regurgitation and moderate mitral stenosis. Continue diuresis and rate control. Normal AVR function. 5. Anemia: This is improving postoperatively. No active bleeding. 6. Hypoxia: Check chest x-ray. No evidence of clinical pneumonia. Continue diuresis. 7. Disposition: He has been evaluated by physical therapy in cleared for discharge home. Likely discharge tomorrow. 05/22/18 10:04 Subjective: Add feels better. Less dyspnea. He is not dizzy. Denies chest pain. Has not yet had a bowel movement during this admission. Reviewed/Discussed With: family, multidisciplinary team Time Spent with Patient: greater than 25 minutes Time Spent with Patient: Greater than 25 minutes spent on this patients care, greater than 50% of time spent counseling, educating, and coordinating care regarding the above mentioned plan. Objective: Vital Signs (8 Hrs) Temp Pulse Resp BP Pulse Ox 05/22/18 08:00 36.3 C 79 22 H 130/69 H 95 05/22/18 05:43 71 17 95 05/22/18 04:00 36.4 C 71 20 126/65 H 93 Intake/Output (24 Hrs) 05/21/18 05/22/18 05/23/18 05:59 05:59 05:59 Intake Total 700 850 Output Total 1800 1925 200 Balance -1100 -1075 -200 Intake: Oral (ml) 700 850 Output: Urine (ml) 1800 1925 200 Toilet 700 300 Urinal 1100 1625 200 Other: Weight 98.2 kg 98.4 kg Intake Quantity Yes Yes Sufficient Number of Voids Toilet 2 1 Urinal 4 No acute distress. JVP 12 cm of water. Regular rate and rhythm with 2/6 early peaking systolic ejection murmur at the base. 2/6 holosystolic murmur at the left lower sternal border. 1/4 early diastolic murmur at the apex. No rub or gallop. Lungs slightly diminished at both bases. Abdomen is soft and nontender. Extremities are warm and well perfused. Improved but still present 1+ pitting edema to the lower sharp bilaterally Alert and oriented x3 without gross focal neurologic deficits. Appropriate mood and affect Result Diagrams: 05/22/18 03:40 05/22/18 03:40 Telemetry: Sinus rhythm. 5 beat run of VT this morning. Echocardiogram: Dated 05/21/2018 reviewed: Ejection fraction has improved since May 19 which was the day of his MIN guided cardioversion. Ejection fraction is now 50% . Leda-aq-dboieifo mitral regurgitation with moderate to severe mitral stenosis and a mean gradient of 12 mm of mercury. Normal aortic valve prosthesis function with a mean gradient of 11. Mild TR with estimated PA pressures of 53. Pleural effusion noted. ICD10 Worksheet Patient Problems: Problems Problem Status Onset S/P left atrial appendage ligation Acute S/P CABG x 3 Acute Acute blood loss anemia Acute Status post circumferential ablation of pulmonary vein Acute S/P MVR (mitral valve repair) Acute S/P AVR (aortic valve replacement) Acute New onset atrial fibrillation Acute Syncope Acute
[2018-05-22] MEDS: FUROSEMIDE 40 MG TAB PO SCH ×2 (10:15→15:09)
[2018-05-22] MEDS: TAMSULOSIN HCL 0.4 MG CAP PO SCH (21:27)
[2018-05-22] MEDS: ASPIRIN EC 81 MG TAB PO SCH (21:27)
[2018-05-23 04:28] LABS: INR 2.98 (0.83-1.16); PROTIME(PATIENT) 30.8 SEC (12.0-15.0)
[2018-05-23] MEDS: ALBUTEROL 3 ML DEYVIAL IH SCH ×2 (06:12→10:43)
[2018-05-23] MEDS ORDERED: POTASSIUM CL 10 MEQ TAB PO ONE (07:36)
[2018-05-23] MEDS: guaiFENesin 600 MG TAB.ER PO SCH (08:18)
[2018-05-23] MEDS: SENNOSIDES/DOCUSATE SODIUM TAB PO SCH (08:19)
[2018-05-23] MEDS: ATORVASTATIN CALCIUM 20 MG TAB PO SCH (08:19)
[2018-05-23] MEDS: FUROSEMIDE 40 MG TAB PO SCH (08:19)
[2018-05-23] MEDS: CHOLECALCIFEROL VIT D3 2,000 UNITS TAB/CAP PO SCH (08:19)
[2018-05-23] MEDS: CYANO/VITAMIN B12 1000 MCG TAB PO SCH (08:19)
[2018-05-23] MEDS: METOPROLOL SUCCINATE XR 25 MG TAB PO SCH (08:19)
[2018-05-23] MEDS: AMIODARONE HCL 200 MG TAB PO SCH (08:19)
[2018-05-23 11:33] VITALS: BP 120/72
--- NOTE | 2018-05-23 15:18 | ASDISCHSUM ---
Discharge Information Plan Status:Home with No Needs Medically Cleared to Leave:05/22/2018 Discharge Date:05/23/2018 01:32 PM CM D/C Disposition:Home, Routine, Self-Care ADT D/C Disposition:Home, Routine, Self-Care Projected Discharge Date:05/23/2018 01:32 PM Transportation at D/C: Discharge Delay Reason: Follow-Up Date:05/23/2018 01:32 PM Discharge Slot: Final Diagnosis: Placement Information Patient Contact Information Contact Name:DREW Relationship:Daughter Address: Work Phone: City[place] Alternate Phone: [facility]/Zip Code:[place] Email: Financial Information Financial Class:Medicare Advantage Plans Primary Plan Desc:[facility] [place] PLANS Primary Plan Number:[id number] Secondary Plan Desc: Secondary Plan Number: Assessment Information BC CM Progress Note CM Note CM Note Notes: Chart reviewed. Patient admitted for obs for a flutter, CHF in setting of [place]. Significant history for CABG, AVR. CEA. Lives with daughter Ofelia per chart information. CM to follow for needs. Plan: TBD Date Signed: 05/20/2018 10:53 AM Electronically Signed By:Cassidy Bailon RN [facility] ERVIN Length of stay for Answers: 3 days current admission Acuity / Level of Answers: Yes Care: Did the patient have an inpatient admission? Comorbidities - select Answers: Congestive heart failure all that apply Coronary Artery Disease Mild liver or renal disease Score: 12 Date Signed: 05/23/2018 03:16 PM Electronically Signed By:Cheli Desai RN [facility] CM Progress Note CM Note CM Note Notes: 06/01/2018 Case Management Note Discussed w/Cathy Ramirez. Anticipating d/c tomorrow. PT eval indicates pt should return home without services. Pt daughter present. Case Management d/c poc: return home with daughter with follow up as directed. Case Management available if needs change. Date Signed: 05/22/2018 09:46 AM Electronically Signed By:Cheli Desai RN Case Management Discharge Plan Note Case Management Discharge Discharge Order Complete? Answers: Yes Patient to Obtain Answers: via Family Medications Discharge Comments Notes: 05/23/2018 Case management note Pt discharged independent with follow up as directed. Date Signed: 05/23/2018 03:17 PM Electronically Signed By:Cheli Desai RN Intervention Information
--- NOTE | 2018-05-24 21:26 | GDS ---
ADMISSION DIAGNOSES: 1. Acute systolic heart failure. 2. Atrial fibrillation, atrial flutter. 3. Acute renal failure. 4. Recent aortic valve replacement (AVR), mitral valve repair and coronary artery bypass graft (CABG ). 5. Hypoxia. DISCHARGE DIAGNOSES: 1. Systolic congestive heart failure. 2. Atrial fibrillation, atrial flutter. 3. Chronic renal failure. 4. Recent aortic valve replacement (AVR), mitral valve repair and coronary artery bypass graft (CABG ). 5. Anemia. 6. Hypoxia. COURSE OF HOSPITALIZATION: This gentleman man was admitted to the hospital on May 20, 2018, with history of recent bioprosthetic AVR, mitral valve repair and CABG with left atrial appendage ligatio n bilateral pulmonary vein isolation April 17. His postoperative course following the AVR was com plicated by atrial fibrillation. He was admitted for further workup and continued diuresis and rate control. At time of discharge, he was doing well. His daughter was coming to take him home where [place] will continue to care for him. At the time of discharge, he was feeling well and talkative with no chest pain, shortness of breath with cough or other cardiac complaints. PHYSICAL EXAMINATION: VITAL SIGNS: On day of discharge, blood pressure 120/78, heart rate 77, tempe rature 36.7 Celsius. EKG showed normal sinus rhythm. CARDIOVASCULAR : Heart rate regular with 2/6 murmur. No rubs or gallops noted. LUNGS: Sounds are clear to auscultation. No wheezes, rales, or rhonchi. EXTREMITIES: Minimal extremity edema was noted. GENERAL: He was feeling well and anxious for discharge. DISCHARGE MEDICATIONS: He went home on Flomax 0.4 mg at bedtime. Vitamin D3 2000 units daily, vitam in B12 1000 mcg daily, aspirin enteric-coated 81 mg at bedtime and Lipitor 20 mg daily. Coumadin 3 m g daily, Klor-Con 20 mEq twice daily, amiodarone 100 mg daily, Lasix 40 mg twice daily, metoprolol molina ccinate 25 mg daily. Mucinex 600 mg 2 tablets twice daily. ALLERGIES: To penicillin. DISCHARGE PLAN: 1. He is to weigh daily in the buff in the morning and record number to avoid high sodium foods. Fo llow a low-sodium diet. 2. He is to follow up at [facility] with Galina JANG in 1 week's time. His daughter will call to make that appointment. At the time of discharge, he was feeling well with no complaints. /[id number]/MODL
== END 2018-05-23 13:32 | disposition home or self-care (01) | DRG 308 ==
LOC: FCATH 13:39 → F2W 15:34 → OBSVTOIN 05-20 13:13
PROVIDERS: ADMIT Internal Medicine Cardiovascular Disease; ATTEND Internal Medicine Cardiovascular Disease
PROC: 5A2204Z Restoration of Cardiac Rhythm, Single (ICD-10-PCS; principal; 2018-05-20)
PROC: B246ZZ4 Ultrasonography of Right and Left Heart, Transesophageal (ICD-10-PCS; principal; 2018-05-20)
DX: I48.91 Unspecified atrial fibrillation (principal); I48.92 Unspecified atrial flutter; I11.0 Hypertensive heart disease with heart failure; I50.23 Acute on chronic systolic (congestive) heart failure; N17.9 Acute kidney failure, unspecified; E87.6 Hypokalemia; J40 Bronchitis, not specified as acute or chronic; I25.10 Atherosclerotic heart disease of native coronary artery without angina pectoris; D64.9 Anemia, unspecified; E78.5 Hyperlipidemia, unspecified; N40.0 Benign prostatic hyperplasia without lower urinary tract symptoms; Z95.1 Presence of aortocoronary bypass graft; Z95.2 Presence of prosthetic heart valve; Z85.51 Personal history of malignant neoplasm of bladder
CPT/HCPCS: 97161-GP; G0378; J1940; J2704; J7613

== ENCOUNTER → 2018-07-11 | Outpatient (CLI) | payer OTHER ==
[~2018-07-11] MED LIST changes: -AMINOCAPROIC ACID 5 GM/20 ML VIAL IV ONE; -CARDIOPLEGIC SOLUTION 1,052.8 ML PF ONE; -CITRATE DEXTROSE SOLN 500 ML BAG MISC ONE; -DOBUTamine/DEXTROSE 250 ML IV SCH; -INSULIN REGULAR HUMAN 100 UNIT in NS 100 ML IV ONE; +IOPAMIDOL (ISOVUE 370) 100 ML BTL IV ONE; -MANNITOL 25% 12.5 GM/50 ML VIAL IVP ONE; -NOREPINEPHRINE BITARTRATE 16 MG in NS 250 ML IV ONE; -PAPAVERINE HCL 60 MG in NS 100 ML IV ONE; -PHENYLEPHRINE HCL 50 MG in NS 250 ML IV ONE; -VERAPAMIL 5 MG, NITROGLYCERIN 2.5 MG, HEPARIN 500 UNIT, SODIUM BICARBONATE 0.2 MEQ in L... MISC ONE
== END ==
LOC: FIMAGING 12:47
PROVIDERS: ATTEND Internal Medicine Cardiovascular Disease
DX: I25.10 Atherosclerotic heart disease of native coronary artery without angina pectoris (principal); I65.02 Occlusion and stenosis of left vertebral artery; J90 Pleural effusion, not elsewhere classified; J43.2 Centrilobular emphysema
CPT/HCPCS: 70498; Q9967